=== PATIENT | female | born 1955 | race Hispanic/Latino ===

== ENCOUNTER 2016-08-24 08:11 | Outpatient (CLI) | payer OTHER ==
--- NOTE | 2016-08-24 09:46 | Mammography Report ---
BILATERAL DIGITAL SCREENING MAMMOGRAM with CAD: 08/24/16 08:11:00 CLINICAL: Routine screening. COMPARISON:08/24/15 FINDINGS: The breasts are almost entirely fatty. No mass, architectural distortion or suspicious calcifications. IMPRESSION: No mammographic evidence of malignancy. BI-RADS CATEGORY: 1 - - Negative RECOMMENDATION: Routine mammographic screening in one year. COMMENT: Patient follow-up letters are generated by our [employer] application.
== END 2016-08-24 08:12 | disposition home or self-care (01) ==
LOC: SPVWC 08:11
PROVIDERS: ATTEND Nurse Practitioner
DX: Z12.31 Encounter for screening mammogram for malignant neoplasm of breast (principal)
CPT/HCPCS: 77067; G0202

== ENCOUNTER 2018-02-25 10:14 | Outpatient (CLI) | payer OTHER ==
[2018-02-25] MEDS ORDERED: XYLOCAINE TOPICAL 4% TP ONE (10:51)
[2018-02-25] MEDS ORDERED: AD OINTMENT TP PRN (10:51)
== END 2018-02-25 10:15 | disposition home or self-care (01) ==
LOC: WOUND 10:14
PROVIDERS: ATTEND Surgery
DX: I70.248 Atherosclerosis of native arteries of left leg with ulceration of other part of lower leg (principal); L97.822 Non-pressure chronic ulcer of other part of left lower leg with fat layer exposed; I25.10 Atherosclerotic heart disease of native coronary artery without angina pectoris; E78.00 Pure hypercholesterolemia, unspecified; Z95.5 Presence of coronary angioplasty implant and graft; Z87.891 Personal history of nicotine dependence
CPT/HCPCS: 11042; 11045; G0463; 99215; A6250

== ENCOUNTER 2018-03-11 08:51 | Outpatient (CLI) | payer OTHER ==
[2018-03-11] MEDS ORDERED: XYLOCAINE TOPICAL 4% TP NR (09:13)
[2018-03-11] MEDS ORDERED: AD OINTMENT TP PRN (09:13)
== END 2018-03-11 08:52 | disposition home or self-care (01) ==
LOC: WOUND 08:51
PROVIDERS: ATTEND Surgery
DX: I70.248 Atherosclerosis of native arteries of left leg with ulceration of other part of lower leg (principal); L97.822 Non-pressure chronic ulcer of other part of left lower leg with fat layer exposed; I25.10 Atherosclerotic heart disease of native coronary artery without angina pectoris; E78.00 Pure hypercholesterolemia, unspecified; Z95.5 Presence of coronary angioplasty implant and graft; Z87.891 Personal history of nicotine dependence
CPT/HCPCS: A6250

== ENCOUNTER 2018-03-18 08:47 | Outpatient (CLI) | payer OTHER ==
[2018-03-18] MEDS ORDERED: XYLOCAINE TOPICAL 4% TP ONE (09:04)
== END 2018-03-18 08:48 | disposition home or self-care (01) ==
LOC: WOUND 08:47
PROVIDERS: ATTEND Surgery
DX: I70.248 Atherosclerosis of native arteries of left leg with ulceration of other part of lower leg (principal); L97.822 Non-pressure chronic ulcer of other part of left lower leg with fat layer exposed; I25.10 Atherosclerotic heart disease of native coronary artery without angina pectoris; E78.00 Pure hypercholesterolemia, unspecified; Z87.891 Personal history of nicotine dependence; Z95.5 Presence of coronary angioplasty implant and graft
CPT/HCPCS: 97605

== ENCOUNTER 2018-04-01 08:58 | Outpatient (CLI) | payer OTHER | END 2018-04-01 08:59 | disposition home or self-care (01) | LOC: WOUND 08:58 | PROVIDERS: ATTEND Surgery | DX: L97.821 Non-pressure chronic ulcer of other part of left lower leg limited to breakdown of skin (principal); E78.00 Pure hypercholesterolemia, unspecified; I25.10 Atherosclerotic heart disease of native coronary artery without angina pectoris; Z87.891 Personal history of nicotine dependence; Z95.818 Presence of other cardiac implants and grafts | CPT/HCPCS: 87075; 87116; G0463; 87186; 99215 ==

== ENCOUNTER 2018-04-08 08:54 | Outpatient (CLI) | payer OTHER | END 2018-04-08 08:55 | disposition home or self-care (01) | LOC: WOUND 08:54 ==

== ENCOUNTER 2018-04-15 08:57 | Outpatient (CLI) | payer OTHER ==
[2018-04-15] MEDS ORDERED: XYLOCAINE TOPICAL 4% TP ONE (09:07)
[2018-04-15] MEDS ORDERED: SILVER NITRATE TP ONE (09:08)
== END 2018-04-15 08:58 | disposition home or self-care (01) ==
LOC: WOUND 08:57
PROVIDERS: ATTEND Surgery
DX: L97.822 Non-pressure chronic ulcer of other part of left lower leg with fat layer exposed (principal); I25.10 Atherosclerotic heart disease of native coronary artery without angina pectoris; E78.00 Pure hypercholesterolemia, unspecified; Z87.891 Personal history of nicotine dependence

== ENCOUNTER 2018-04-18 09:12 | Inpatient (IN) | payer OTHER ==
[2018-04-18 10:33] LABS: Basophils # (Auto) 0.1 K/mm3 (0.0-0.1); Basophils % (Auto) 0.5 % (0.0-1.8); Eosinophils # (Auto) 0.1 K/mm3 (0.0-0.4); Eosinophils % (Auto) 1.3 % (0.0-4.3); Hemoglobin 12.1 gm/dl (10.1-14.3); Lymphocytes # (Auto) 0.5 K/mm3 (1.2-5.4); Lymphocytes % (Auto) 4.8 % (13.4-35.0); Mean Corpuscular HGB Conc 33 % (30-34); Mean Corpuscular Volume 79 fl (79-97); Monocytes # (Auto) 0.8 K/mm3 (0.0-0.8); Monocytes % (Auto) 8.5 % (0.0-7.3); Platelet Count 356 K/mm3 (140-440); Red Cell Distribution Width 17.6 % (13.2-15.2)
[2018-04-18 10:57] LABS: Albumin 3.8 g/dL (3.9-5); Calcium 9.1 mg/dL (8.4-10.2)
--- NOTE | 2018-04-18 11:33 | XRay Report ---
CHEST TWO VIEWS: 04/18/18 10:22 CLINICAL: Shortness of breath. No comparison. FINDINGS: Somewhat vague opacities in the left upper lobe with volume loss and a prominent left hilum with adjacent surgical clips. The left lower lobe is clear. The right lung is normally expanded and clear. The heart is normal size but is shifted to the left. Mild degenerative changes in the spine. No suspicious bone lesions. IMPRESSION: Probable chronic postsurgical changes of a left upper lobe after partial lobectomy.No acute pneumonia or CHF.
[2018-04-18] MEDS ORDERED: CARDIZEM IV ONE ×2 (16:50→16:57)
[2018-04-18] MEDS ORDERED: CARDIZEM ONE (16:53)
[2018-04-18] MEDS ORDERED: NACL 0.9% 500 ML 500 ML IV ONE (16:54)
[2018-04-18] MEDS ORDERED: NACL 0.9% 1000 ML 1,000 ML ONE ×2 (16:57→21:10)
[2018-04-18] MEDS ORDERED: CARDIZEM/D5W 100MG/100ML 100 MG/100 ML BAG IV SCH (17:00)
[2018-04-18] MEDS ORDERED: LANOXIN IV ONE (17:10)
[2018-04-18] MEDS ORDERED: CORDARONE 150 MG in D5W 97 ML IV ONE (17:30)
[2018-04-18 17:57] LABS: Free T4 (Free Thyroxine) 0.99 ng/dL (0.76-1.46)
[2018-04-18] MEDS ORDERED: CORDARONE 900 MG in D5W 482 ML IV SCH (18:00)
[2018-04-18 18:01] LABS: INR 1.02 (0.87-1.13)
[2018-04-18 18:02] LABS: Partial Thromboplastin Time 34.4 Sec. (24.2-36.6)
[2018-04-18] MEDS ORDERED: VANCOMYCIN 2,000 MG in NACL 0.9% 500 ML 500 ML IV ONE (18:45)
--- NOTE | 2018-04-18 19:24 | Cat Scan Report ---
FINAL REPORT PROCEDURE: CT angiogram chest with contrast. TECHNIQUE: Computerized tomographic angiography of the chest was performed after the IV injection of iodinated nonionic contrast including image processing. The image data was postprocessed using 2-dim ensional multiplanar reformatted (MPR) and 3-dimensional (MIP and/or volume rendered) techniques. HISTORY: Chest pain, shortness of breath, tachycardia, elevated D-dimer. COMPARISON: No prior studies are available for comparison. FINDINGS: The trachea and central bronchi appear normal. The right lung is clear and well expanded. There are n umerous small dilated bronchi in the anterior portion of the left upper lobe. These bronchi have dens e surrounding opacity. The findings are consistent with bronchiectasis with surrounding fibrosis. The re are no definite mass lesions. The remainder of the left lung is clear. There are no pleural effusi ons. The thoracic aorta has a normal caliber without evidence of dissection. The pulmonary arteries e nhance normally. There are no signs of pulmonary embolism. There is no mediastinal adenopathy. The he art size is normal. The adrenal glands are not enlarged. The thoracic skeleton appears intact. IMPRESSION: No evidence of pulmonary embolism. Probable chronic fibrosis and bronchiectasis in the anterior porti on of the left upper lobe.
[2018-04-18] MEDS ORDERED: NACL 0.9% 1000 ML 1,000 ML IV ONE ×2 (19:37→19:44)
[2018-04-18] MEDS ORDERED: LOPRESSOR IV ONE (19:45)
--- NOTE | 2018-04-18 19:53 | Emergency Department Report ---
ED Shortness of Breath HPI - General Chief Complaint: Dyspnea/Respdistress Stated Complaint: KIAN Time Seen by Provider: 04/18/18 10:12 Source: patient, old records reviewed Mode of arrival: Wheelchair Limitations: No Limitations - History of Present Illness Initial Comments: 63-year-old female with a past medical history of CAD with stent, obesity, hype rtension, and previous appendectomy presents to Hospital with complaints of shortness of breath and mid chest pain 2 days. Chest pain worsened last night described as pleuritic and worse with deep inspiration. Patient splinting secondary to pain. Patient was prescribed Bactrim and has been taking 1 tablet per week. She noticed that the medication should have been taken twice a day and has increased this dose for the past 2 days. Patient states she's been having some nausea with dry heaves. She states that she is no longer taking aspirin and Plavix due to her previous hematoma in her left leg. Dr. Mccarthy performed surgery on March 01 for her left leg hematoma that resulted from a fall. Patient states she had a negative stress test this past fall and denies a history of CHF. Dam Tender: Dr. Wick PMD: A nurse practitioner in Dr. church's formal office. Patient receives home wound care and continues to see Dr. Mccarthy as outpatient. Dr. Mccarthy prescribed the Bactrim - Related Data Home Medications Medication Instructions Recorded Confirmed Last Taken Alendronate Sodium [Fosamax] 70 mg PO QWEEK 02/27/18 03/01/18 02/28/18 09:00 Atorvastatin [Lipitor] 80 mg PO QHS 02/27/18 03/01/18 02/28/18 21:00 Citalopram Hydrobromide 20 mg PO DAILY 02/27/18 03/01/18 02/28/18 09:00 [Citalopram HBr] Clopidogrel Bisulfate [Clopidogrel] 75 mg PO DAILY 02/27/18 03/01/18 02/28/18 09:00 Cyanocobalamin [Vitamin B-12] 1,000 mcg IM QMONTH 02/27/18 03/01/18 02/08/18 Lisinopril [Zestril TAB] 40 mg PO DAILY 02/27/18 03/01/18 02/28/18 09:00 Metoprolol [Lopressor TAB] 50 mg PO DAILY 02/27/18 03/01/18 02/28/18 09:00 buPROPion HCl [Bupropion HCl ER] 200 mg PO BID 02/27/18 03/01/18 02/28/18 21:00 Previous Rx's Medication Instructions Recorded Last Taken Type oxyCODONE /ACETAMINOPHEN [Percocet 2 tab PO Q6H PRN #30 tablet 03/01/18 Unknown Rx 5/325 mg] Allergies Allergy/AdvReac Type Severity Reaction Status Date / Time No Known Allergies Allergy Verified 04/18/18 09:14 ED Review of Systems ROS: Stated complaint: KIAN Other details as noted in HPI Comment: All other systems reviewed and negative ED Past Medical Hx - Past Medical History Previous Medical History?: Yes Hx Hypertension: Yes (x 10 yrs) - Surgical History Past Surgical History?: Yes Hx Coronary Stent: Yes (x1 2007) Hx Appendectomy: Yes - Social History Smoking Status: Never Smoker Substance Use Type: None - Medications Home Medications: Home Medications Medication Instructions Recorded Confirmed Last Taken Type Alendronate Sodium [Fosamax] 70 mg PO QWEEK 02/27/18 03/01/18 02/28/18 09:00 History Atorvastatin [Lipitor] 80 mg PO QHS 02/27/18 03/01/18 02/28/18 21:00 History Citalopram Hydrobromide 20 mg PO DAILY 02/27/18 03/01/18 02/28/18 09:00 History [Citalopram HBr] Clopidogrel Bisulfate [Clopidogrel] 75 mg PO DAILY 02/27/18 03/01/18 02/28/18 09:00 History Cyanocobalamin [Vitamin B-12] 1,000 mcg IM QMONTH 02/27/18 03/01/18 02/08/18 History Lisinopril [Zestril TAB] 40 mg PO DAILY 02/27/18 03/01/18 02/28/18 09:00 History Metoprolol [Lopressor TAB] 50 mg PO DAILY 02/27/18 03/01/18 02/28/18 09:00 History buPROPion HCl [Bupropion HCl ER] 200 mg PO BID 02/27/18 03/01/18 02/28/18 21:00 History oxyCODONE /ACETAMINOPHEN [Percocet 2 tab PO Q6H PRN #30 tablet 03/01/18 Unknown Rx 5/325 mg] ED Physical Exam - General Limitations: No Limitations - Other Other exam information: General: No limitations, patient is alert in no acute distress Head exam: Atraumatic, normocephalic Eyes exam: Normal appearance ENT: Moist mucous membrane Neck exam: Normal inspection, full range of motion, no meningismus nontender Respiratory exam: Clear to auscultation bilateral, no wheezes, rales, crackles, tachypnea. Chest wall nontender Cardiovascular: Tachycardic regular rhythm Abdomen: Soft, nondistended, and nontender, with normal bowel sounds, no rebound, or guarding Extremity: Full range of motion, left lower leg with anterior wall with packing. No significant purulent drainage or warmth. Mild erythema. Mildly tender. Back: Normal Inspection, full range of motion, no tenderness Neurologic: Alert, oriented x3, cranial nerves intact, no motor or sensory deficit Psychiatric: normal affect, normal mood Skin: Warm, dry, intact ED Course Vital Signs 04/18/18 04/18/18 04/18/18 09:56 15:05 15:40 Temperature 98.8 F 100.5 F H 98.8 F Pulse Rate 51 L 155 H 144 H Respiratory 22 22 Rate Blood Pressure 103/76 113/62 Blood Pressure 102/61 [Left] O2 Sat by Pulse 97 99 98 Oximetry 04/18/18 04/18/18 04/18/18 16:13 16:14 16:16 Temperature Pulse Rate 150 H 152 H 153 H Respiratory 22 26 H 31 H Rate Blood Pressure 104/46 Blood Pressure [Left] O2 Sat by Pulse Oximetry 04/18/18 04/18/18 04/18/18 16:18 16:20 16:22 Temperature Pulse Rate 152 H 152 H 152 H Respiratory 26 H 33 H 28 H Rate Blood Pressure 104/46 104/46 104/46 Blood Pressure [Left] O2 Sat by Pulse Oximetry 04/18/18 04/18/18 04/18/18 16:24 16:26 16:28 Temperature Pulse Rate 153 H 153 H 152 H Respiratory 30 H 27 H 32 H Rate Blood Pressure 104/46 104/46 104/46 Blood Pressure [Left] O2 Sat by Pulse Oximetry 04/18/18 04/18/18 04/18/18 16:30 16:31 16:56 Temperature Pulse Rate 147 H 152 H 135 H Respiratory 31 H 31 H 30 H Rate Blood Pressure 104/46 97/47 118/97 Blood Pressure [Left] O2 Sat by Pulse Oximetry 04/18/18 04/18/18 04/18/18 16:58 17:00 17:01 Temperature Pulse Rate 153 H 152 H 152 H Respiratory 35 H 32 H 35 H Rate Blood Pressure 104/46 91/47 84/39 Blood Pressure [Left] O2 Sat by Pulse Oximetry 04/18/18 04/18/18 04/18/18 17:02 17:04 17:06 Temperature Pulse Rate 150 H 152 H 148 H Respiratory 33 H 32 H 33 H Rate Blood Pressure 84/39 84/39 84/39 Blood Pressure [Left] O2 Sat by Pulse Oximetry 04/18/18 04/18/18 04/18/18 17:08 17:10 17:12 Temperature Pulse Rate 150 H 148 H 134 H Respiratory 36 H 30 H 34 H Rate Blood Pressure 75/38 75/38 75/38 Blood Pressure [Left] O2 Sat by Pulse Oximetry 04/18/18 04/18/18 04/18/18 17:14 17:16 17:18 Temperature Pulse Rate 142 H 126 H 149 H Respiratory 26 H 32 H 23 Rate Blood Pressure 75/38 135/86 135/86 Blood Pressure [Left] O2 Sat by Pulse Oximetry 04/18/18 04/18/18 04/18/18 17:20 17:22 17:24 Temperature Pulse Rate 130 H 126 H 149 H Respiratory 33 H 27 H 27 H Rate Blood Pressure 135/86 135/86 135/86 Blood Pressure [Left] O2 Sat by Pulse Oximetry 04/18/18 04/18/18 04/18/18 17:26 17:28 17:30 Temperature Pulse Rate 136 H 140 H 134 H Respiratory 21 33 H 33 H Rate Blood Pressure 135/86 135/86 135/86 Blood Pressure [Left] O2 Sat by Pulse Oximetry 04/18/18 04/18/18 04/18/18 17:31 17:32 17:34 Temperature Pulse Rate 141 H 138 H 139 H Respiratory 28 H 34 H 28 H Rate Blood Pressure 104/55 104/55 104/55 Blood Pressure [Left] O2 Sat by Pulse Oximetry 04/18/18 04/18/18 04/18/18 17:36 17:38 17:40 Temperature Pulse Rate 145 H 147 H 148 H Respiratory 25 H 36 H 36 H Rate Blood Pressure 104/55 104/55 104/55 Blood Pressure [Left] O2 Sat by Pulse 98 Oximetry 04/18/18 04/18/18 04/18/18 17:42 17:44 17:46 Temperature Pulse Rate 148 H 143 H 149 H Respiratory 35 H 34 H 34 H Rate Blood Pressure 104/55 104/55 85/49 Blood Pressure [Left] O2 Sat by Pulse Oximetry 04/18/18 04/18/18 04/18/18 17:48 17:50 17:52 Temperature Pulse Rate 143 H 143 H 147 H Respiratory 33 H 33 H 29 H Rate Blood Pressure 85/49 85/49 85/49 Blood Pressure [Left] O2 Sat by Pulse Oximetry 04/18/18 04/18/18 04/18/18 17:54 17:56 17:58 Temperature Pulse Rate 147 H 137 H 141 H Respiratory 30 H 34 H 35 H Rate Blood Pressure 85/49 85/49 85/49 Blood Pressure [Left] O2 Sat by Pulse Oximetry 04/18/18 04/18/18 04/18/18 18:00 18:02 18:04 Temperature Pulse Rate 133 H 141 H 141 H Respiratory 37 H 34 H 36 H Rate Blood Pressure 85/49 85/49 85/49 Blood Pressure [Left] O2 Sat by Pulse Oximetry 04/18/18 04/18/18 04/18/18 18:06 18:08 18:10 Temperature Pulse Rate 142 H 142 H 143 H Respiratory 26 H 37 H 27 H Rate Blood Pressure 85/49 85/49 85/49 Blood Pressure [Left] O2 Sat by Pulse Oximetry 04/18/18 04/18/18 04/18/18 18:12 18:14 18:16 Temperature Pulse Rate 142 H 134 H 138 H Respiratory 33 H 25 H 27 H Rate Blood Pressure 85/49 85/49 85/49 Blood Pressure [Left] O2 Sat by Pulse Oximetry 04/18/18 04/18/18 04/18/18 18:18 18:20 18:22 Temperature Pulse Rate 144 H 142 H 140 H Respiratory 27 H 33 H 28 H Rate Blood Pressure 85/49 85/49 85/49 Blood Pressure [Left] O2 Sat by Pulse Oximetry 04/18/18 04/18/18 04/18/18 18:24 18:26 18:28 Temperature Pulse Rate 137 H 134 H 144 H Respiratory 31 H 29 H 31 H Rate Blood Pressure 85/49 85/49 85/49 Blood Pressure [Left] O2 Sat by Pulse Oximetry 04/18/18 18:30 Temperature Pulse Rate 141 H Respiratory 30 H Rate Blood Pressure 85/49 Blood Pressure [Left] O2 Sat by Pulse Oximetry - Consultations Consultation #1: 04/18/18 17:[address] Renee Barnett workers' compensation claims supervisor parts specialist for Dr. Wick. Informed that Cardizem bolus did not help with tachycardia and blood pressure drop from 100 systolic to the 70s after initial bolus. Recommends digoxin 0.5 mg IV load, amiodarone 150 IV load followed by amiodarone drip. 04/18/18 19:49 Received follow-up call from Dr. Renee Barnett. Informed that patient remains tachycardic in the 130s to 150s. Will blood pressure cuff chain systolic pressure is 100. Recommends to try metoprolol 5 mg IV. Recommends additional IV fluids. Patient has received 1 L normal saline eschar and no signs of CHF on CT scan after IVF. Additional 2 L ordered Consultation #2: 04/18/18 20:[address] Mccarthy to be done during admission 04/18/18 20:21 Critical care consult ordered - Central Line Placement Right IJ Consent Obtained: written consent Time Out Performed: Yes Patient Placed on Monitor/Pulse Ox: Yes Prep: mask, gown, gloves Central Line Prep: Chlorhexidine scrub, sterile drapes applied Local Anesthesia Used: Lidocaine 1% Amount of Anesthesia Used (mls): 5 Ultrasound Used for Placement: Yes Central Line Lumen Inserted: triple Bloods Obtained for Lab: Yes Central Line Position: good blood return, sutured in place with nyl Dressing Applied: Tegaderm Post Procedure X-Ray: tip of catheter in good p Patient Tolerated Procedure: well Complications: none ED Medical Decision Making - Lab Data Result diagrams: 04/18/18 10:08 04/18/18 10:08 Lab Results 04/18/18 04/18/18 04/18/18 Range/Units 10:08 10:08 10:08 WBC 9.9 (4.5-11.0) K/mm3 RBC 4.70 (3.65-5.03) M/mm3 Hgb 12.1 (10.1-14.3) gm/dl Hct 37.0 (30.3-42.9) % MCV 79 (79-97) fl MCH 26 L (28-32) pg MCHC 33 (30-34) % RDW 17.6 H (13.2-15.2) % Plt Count 356 (140-440) K/mm3 Lymph % (Auto) 4.8 L (13.4-35.0) % Osborne % (Auto) 8.5 H (0.0-7.3) % Eos % (Auto) 1.3 (0.0-4.3) % Baso % (Auto) 0.5 (0.0-1.8) % Lymph # 0.5 L (1.2-5.4) K/mm3 Osborne # 0.8 (0.0-0.8) K/mm3 Eos # 0.1 (0.0-0.4) K/mm3 Baso # 0.1 (0.0-0.1) K/mm3 Seg Neutrophils % 84.9 H (40.0-70.0) % Seg Neutrophils # 8.4 H (1.8-7.7) K/mm3 PT (12.2-14.9) Sec. INR (0.87-1.13) APTT (24.2-36.6) Sec. D-Dimer (0-234) ng/mlDDU VBG pH (7.320-7.420) Sodium 134 L (137-145) mmol/L Potassium 4.4 (3.6-5.0) mmol/L Chloride 99.9 (98-107) mmol/L Carbon Dioxide 20 L (22-30) mmol/L Anion Gap 19 mmol/L BUN 21 H (7-17) mg/dL Creatinine 1.0 (0.7-1.2) mg/dL Estimated GFR 56 ml/min BUN/Creatinine Ratio 21 % Glucose 138 H (65-100) mg/dL Lactic Acid (0.7-2.0) mmol/L Calcium 9.1 (8.4-10.2) mg/dL Magnesium (1.7-2.3) mg/dL Total Bilirubin 0.30 (0.1-1.2) mg/dL AST 18 (5-40) units/L ALT 15 (7-56) units/L Alkaline Phosphatase 93 (35-129) units/L Troponin T < 0.010 (0.00-0.029) ng/mL Total Protein 7.0 (6.3-8.2) g/dL Albumin 3.8 L (3.9-5) g/dL Albumin/Globulin Ratio 1.2 % TSH (0.270-4.200) mlU/mL Free T4 (0.76-1.46) ng/dL 04/18/18 04/18/18 04/18/18 Range/Units 15:52 16:57 16:57 WBC (4.5-11.0) K/mm3 RBC (3.65-5.03) M/mm3 Hgb (10.1-14.3) gm/dl Hct (30.3-42.9) % MCV (79-97) fl MCH (28-32) pg MCHC (30-34) % RDW (13.2-15.2) % Plt Count (140-440) K/mm3 Lymph % (Auto) (13.4-35.0) % Osborne % (Auto) (0.0-7.3) % Eos % (Auto) (0.0-4.3) % Baso % (Auto) (0.0-1.8) % Lymph # (1.2-5.4) K/mm3 Osborne # (0.0-0.8) K/mm3 Eos # (0.0-0.4) K/mm3 Baso # (0.0-0.1) K/mm3 Seg Neutrophils % (40.0-70.0) % Seg Neutrophils # (1.8-7.7) K/mm3 PT 14.0 (12.2-14.9) Sec. INR 1.02 (0.87-1.13) APTT 34.4 (24.2-36.6) Sec. D-Dimer 519.87 H (0-234) ng/mlDDU VBG pH (7.320-7.420) Sodium (137-145) mmol/L Potassium (3.6-5.0) mmol/L Chloride (98-107) mmol/L Carbon Dioxide (22-30) mmol/L Anion Gap mmol/L BUN (7-17) mg/dL Creatinine (0.7-1.2) mg/dL Estimated GFR ml/min BUN/Creatinine Ratio % Glucose (65-100) mg/dL Lactic Acid (0.7-2.0) mmol/L Calcium (8.4-10.2) mg/dL Magnesium (1.7-2.3) mg/dL Total Bilirubin (0.1-1.2) mg/dL AST (5-40) units/L ALT (7-56) units/L Alkaline Phosphatase (35-129) units/L Troponin T < 0.010 (0.00-0.029) ng/mL Total Protein (6.3-8.2) g/dL Albumin (3.9-5) g/dL Albumin/Globulin Ratio % TSH 0.892 (0.270-4.200) mlU/mL Free T4 0.99 (0.76-1.46) ng/dL 04/18/18 04/18/18 04/18/18 Range/Units 17:20 17:35 17:35 WBC (4.5-11.0) K/mm3 RBC (3.65-5.03) M/mm3 Hgb (10.1-14.3) gm/dl Hct (30.3-42.9) % MCV (79-97) fl MCH (28-32) pg MCHC (30-34) % RDW (13.2-15.2) % Plt Count (140-440) K/mm3 Lymph % (Auto) (13.4-35.0) % Osborne % (Auto) (0.0-7.3) % Eos % (Auto) (0.0-4.3) % Baso % (Auto) (0.0-1.8) % Lymph # (1.2-5.4) K/mm3 Osborne # (0.0-0.8) K/mm3 Eos # (0.0-0.4) K/mm3 Baso # (0.0-0.1) K/mm3 Seg Neutrophils % (40.0-70.0) % Seg Neutrophils # (1.8-7.7) K/mm3 PT (12.2-14.9) Sec. INR (0.87-1.13) APTT (24.2-36.6) Sec. D-Dimer (0-234) ng/mlDDU VBG pH 7.359 (7.320-7.420) Sodium (137-145) mmol/L Potassium (3.6-5.0) mmol/L Chloride (98-107) mmol/L Carbon Dioxide (22-30) mmol/L Anion Gap mmol/L BUN (7-17) mg/dL Creatinine (0.7-1.2) mg/dL Estimated GFR ml/min BUN/Creatinine Ratio % Glucose (65-100) mg/dL Lactic Acid 1.10 (0.7-2.0) mmol/L Calcium (8.4-10.2) mg/dL Magnesium 1.90 (1.7-2.3) mg/dL Total Bilirubin (0.1-1.2) mg/dL AST (5-40) units/L ALT (7-56) units/L Alkaline Phosphatase (35-129) units/L Troponin T (0.00-0.029) ng/mL Total Protein (6.3-8.2) g/dL Albumin (3.9-5) g/dL Albumin/Globulin Ratio % TSH (0.270-4.200) mlU/mL Free T4 (0.76-1.46) ng/dL - EKG Data -: EKG Interpreted by [place] EKG shows normal: axis (qrs =73), QRS complexes (qrsd 86), ST-T waves (no stemi) Rate: tachycardia (139) - EKG Data When compared to previous EKG there are: previous EKG unavailable 04/18/18 20:07 Repeat EKG at 16:46 shows A flutter with 2-1 block rate 151. QRS axis -57, QRS duration 146, no ST elevation [place] - Radiology Data Radiology results: report reviewed CHEST TWO VIEWS: 04/18/18 10:22 CLINICAL: Shortness of breath. No comparison. FINDINGS: Somewhat vague opacities in the left upper lobe with volume loss and a prominent left hilum with adjacent surgical clips. The left lower lobe is clear. The right lung is normally expanded and clear. The heart is normal size but is shifted to the left. Mild degenerative changes in the spine. No suspicious bone lesions. IMPRESSION: Probable chronic postsurgical changes of a left upper lobe after partial lobectomy.No acute pneumonia or CHF. FINAL REPORT PROCEDURE: CT angiogram chest with contrast. TECHNIQUE: Computerized tomographic angiography of the chest was performed after the IV injection of iodinated nonionic contrast including image processing. The image data was postprocessed using 2- dimensional multiplanar reformatted (MPR) and 3-dimensional (MIP and/or volume rendered) techniques. HISTORY: Chest pain, shortness of breath, tachycardia, elevated D-dimer. COMPARISON: No prior studies are available for comparison. FINDINGS: The trachea and central bronchi appear normal. The right lung is clear and well expanded. There are numerous small dilated bronchi in the anterior portion of the left upper lobe. These bronchi have dense surrounding opacity. The findings are consistent with bronchiectasis with surrounding fibrosis. There are no definite mass lesions. The remainder of the left lung is clear. There are no pleural effusions. The thoracic aorta has a normal caliber without evidence of dissection. The pulmonary arteries enhance normally. There are no signs of pulmonary embolism. There is no mediastinal adenopathy. The heart size is normal. The adrenal glands are not enlarged. The thoracic skeleton appears intact. IMPRESSION: No evidence of pulmonary embolism. Probable chronic fibrosis and bronchiectasis in the anterior portion of the left upper lobe. FINAL REPORT EXAM: XR CHEST 1V AP HISTORY: s/p central line placement TECHNIQUE: Single AP chest PRIORS: None. FINDINGS: There is a right IJ catheter tip the SVC. There is some patchy increased opacity within the left upper lobe which may be acute or chronic finding. No evidence for pneumothorax. Pulmonary vasculature appears within normal limits. IMPRESSION: Right IJ catheter in satisfactory position Patchy increased opacity in the left upper lobe which may be acute or chronic finding. Continued followup suggested. - Medical Decision Making Patient presents to the hospital with A. fib with RVR that is refractory to medication in the ED. It is unclear as whether not this is caused by sepsis or primary arrhythmia. Patient is on antibiotics/Bactrim for her leg but does not have any leukocytosis pregnancies although there is a shift) or elevated lactic acid. Patient has pleuritic chest pain and is splinting secondary to pain. D- dimer was elevated. CT angiogram chest was negative for pulmonary embolism. Central line placed due to persistent tachycardia and borderline hypotension. Case discussed with parts specialist see consult. Hospitalist informed of admission Dr Sharma. ICU admission orders will be placed. Patient was empirically given vancomycin for possible leg infection. Zosyn also ordered given increasing left upper lobe opacity with IV hydration. - Differential Diagnosis PE, A. fib, a flutter, sepsis Critical Care Time: Yes Critical care time in (mins) excluding proc time.: 65 Critical care attestation.: If time is entered above; I have spent that time in minutes in the direct care of this critically ill patient, excluding procedure time. ED Disposition Clinical Impression: Atrial flutter with rapid ventricular response, Pleuritic chest pain, Pulmonary infiltrate, Leg wound, left Disposition: [id number] OP ADMIT IP TO THIS HOSP Is pt being admited?: Yes Condition: Stable Instructions: Chest Pain (ED) Time of Disposition: 20:13 (Dr Sharma/hospitalist)
--- NOTE | 2018-04-18 20:07 | XRay Report ---
FINAL REPORT EXAM: XR CHEST 1V AP HISTORY: s/p central line placement TECHNIQUE: Single AP chest PRIORS: None. FINDINGS: There is a right IJ catheter tip the SVC. There is some patchy increased opacity within the left uppe r lobe which may be acute or chronic finding. No evidence for pneumothorax. Pulmonary vasculature jaden ears within normal limits. IMPRESSION: Right IJ catheter in satisfactory position Patchy increased opacity in the left upper lobe which may be acute or chronic finding. Continued foll owup suggested.
[2018-04-18] MEDS ORDERED: ZOSYN/NS 4.5GM/100ML 4.5 GM/100 ML VIAL IV ONE ×2 (20:10→21:10)
--- NOTE | 2018-04-18 20:22 | History and Physical Report ---
History of Present Illness Chief complaint: I cant breathe History of present illness: 63 YO Female with MO,Obesity Hypoventilation on CPAP, CAD S/P Stent Placement, HTN presents to ED for evaluation. Pt states that she has experienced shortness of breath, chest palpitations, and chest discomfort over the past 2 days with worsening symptoms over the same time frame. Pt seen and evaluated by her PCP and was initially treated with oral antibiotic therapy without relief of symptoms that were suspected secondary to a respiratory tract infection. Pt subsequently presents to ED for evaluation. Pt seen and evaluated in ED and found to have Atrial Flutter with RVR, Acute Respiratory Failure, as well as Left Leg Cellulitis. Pt treated with medical cardioversion with cardizem without improvement. Cardiology consulted in ED. Pt then placed on amidarone drip and heparin drip as per cardiology request. Pt declined synchronized cardioversion. Pt admitted to ICU. Pt denies fever, chills, NVD, Trauma, BRBPR, Hemoptysis, or recent ill contacts. Past History Past Medical History: CAD, other (Obesity Hypoventilation,) Past Surgical History: appendectomy, Other (stent placement) Social history: , lives with family. denies: smoking, alcohol abuse, prescription drug abuse Family history: hypertension Medications and Allergies Allergies Allergy/AdvReac Type Severity Reaction Status Date / Time No Known Allergies Allergy Verified 04/18/18 09:14 Home Medications Medication Instructions Recorded Confirmed Last Taken Type Alendronate Sodium [Fosamax] 70 mg PO QWEEK 02/27/18 03/01/18 02/28/18 09:00 History Atorvastatin [Lipitor] 80 mg PO QHS 02/27/18 03/01/18 02/28/18 21:00 History Citalopram Hydrobromide 20 mg PO DAILY 02/27/18 03/01/18 02/28/18 09:00 History [Citalopram HBr] Clopidogrel Bisulfate [Clopidogrel] 75 mg PO DAILY 02/27/18 03/01/18 02/28/18 09:00 History Cyanocobalamin [Vitamin B-12] 1,000 mcg IM QMONTH 02/27/18 03/01/1818 History Lisinopril [Zestril TAB] 40 mg PO DAILY 02/27/18 03/01/18 02/28/18 09:00 History Metoprolol [Lopressor TAB] 50 mg PO DAILY 02/27/18 03/01/18 02/28/18 09:00 History buPROPion HCl [Bupropion HCl ER] 200 mg PO BID 02/27/18 03/01/18 02/28/18 21:00 History oxyCODONE /ACETAMINOPHEN [Percocet 2 tab PO Q6H PRN #30 tablet 03/01/18 Unknown Rx 5/325 mg] Active Meds: Active Medications Amiodarone HCl 900 mg/ (Dextrose) 500 mls @ 33.33 mls/hr IV DIRECT JOSEE; Protocol Last Admin: 04/18/18 18:00 Dose: 1 mg/min, 33.33 mls/hr Documented by: Vancomycin HCl 2,000 mg/ (Sodium Chloride) 540 mls @ 333 mls/hr IV ONCE ONE; Protocol Stop: 04/18/18 20:22 Sodium Chloride (Nacl 0.9% 1000 Ml) 1,000 mls @ 999 mls/hr IV BOLUS ONE Stop: 04/18/18 20:37 Last Admin: 04/18/18 20:11 Dose: 999 mls/hr Documented by: Sodium Chloride (Nacl 0.9% 1000 Ml) 1,000 mls @ 999 mls/hr IV BOLUS ONE Stop: 04/18/18 20:44 Piperacillin Sod/Tazobactam Sod (Zosyn/Ns 4.5gm/100ml) 4.5 gm in 100 mls @ 200 mls/hr IV ONCE ONE Stop: 04/18/18 20:39 Review of Systems Constitutional: no weight loss, no weight gain, no fever, no chills Ears, nose, mouth and throat: no ear pain, no ear discharge, no tinnitis, no decreased hearing, no nose pain Cardiovascular: chest pain, palpitations, shortness of breath Respiratory: no cough, no cough with sputum, no excessive sputum, no hemoptysis Gastrointestinal: no nausea, no vomiting, no diarrhea, no constipation Genitourinary Female: no pelvic pain, no flank pain, no menorrhagia, no dysuria, no urinary frequency, no urgency Rectal: no pain, no incontinence, no bleeding Musculoskeletal: no neck stiffness, no neck pain, no shooting arm pain, no arm numbness/tingling, no low back pain Integumentary: no rash, no pruritis, no redness, no sores, no wounds Neurological: no paralysis, no weakness, no parathesias, no numbness Psychiatric: no anxiety, no memory loss, no change in sleep habits, no sleep disturbances, no insomnia, no hypersomnia Endocrine: no cold intolerance, no heat intolerance, no polyphagia, no excessive thirst, no polydipsia Hematologic/Lymphatic: no easy bruising, no easy bleeding Allergic/Immunologic: no urticaria, no allergic rhinitis, no wheezing Exam - Constitutional Vitals: Temp Pulse Resp BP Pulse Ox 98.8 F 141 H 30 H 85/49 98 04/18/18 15:40 04/18/18 18:30 04/18/18 18:30 04/18/18 18:30 04/18/18 17:40 General appearance: Present: mild distress, obese - EENT Eyes: Present: PERRL ENT: hearing intact, clear oral mucosa - Neck Neck: Present: supple, normal ROM - Respiratory Respiratory effort: labored Respiratory: bilateral: diminished - Cardiovascular Heart Sounds: Present: S1 & S2. Absent: rub, click - Extremities Extremities: pulses symmetrical, No edema Peripheral Pulses: within normal limits - Abdominal General gastrointestinal: Present: soft, non-tender, non-distended, normal bowel sounds Female genitourinary: Present: normal - Integumentary Integumentary: Present: clear, warm, dry - Musculoskeletal Musculoskeletal: gait normal, strength equal bilaterally - Psychiatric Psychiatric: appropriate mood/affect, intact judgment & insight - Neurologic Neurologic: CNII-XII intact, moves all extremities Results - Labs CBC & Chem 7: 04/19/18 03:53 04/19/18 03:53 Labs: Abnormal lab results 04/18/18 04/18/18 04/18/18 Range/Units 10:08 10:08 16:57 MCH 26 L (28-32) pg RDW 17.6 H (13.2-15.2) % Lymph % (Auto) 4.8 L (13.4-35.0) % [place] % (Auto) 8.5 H (0.0-7.3) % Lymph # 0.5 L (1.2-5.4) K/mm3 Seg Neutrophils % 84.9 H (40.0-70.0) % Seg Neutrophils # 8.4 H (1.8-7.7) K/mm3 D-Dimer 519.87 H (0-234) ng/mlDDU Sodium 134 L (137-145) mmol/L Carbon Dioxide 20 L (22-30) mmol/L BUN 21 H (7-17) mg/dL Glucose 138 H (65-100) mg/dL Albumin 3.8 L (3.9-5) g/dL Assessment and Plan - Patient Problems (1) Atrial flutter with rapid ventricular response Current Visit: Yes Status: Acute Plan to address problem: Admit to ICU: Amiodarone drip, heparin drip as per cardiology request, Pt declined synchronized cardioversion, supportive care, cardiology consulted. The high probability of a clinically significant, sudden or life threatening deterioration of the [cardiac,renal, respiratory] system(s) required my full and direct attention, intervention and personal management. The aggregate critical care time was [65] minutes. This time is in addition to time spent performing reported procedures but includes the following: [x] Data Review and interpretation [x] Patient assessment and monitoring of vital signs [x] Documentation [x] Medication orders and management (2) Cellulitis Current Visit: Yes Status: Acute Qualifiers: Site of cellulitis of extremity: lower extremity Laterality: left Plan to address problem: Empiric antibiotic therapy x 1 dose, wound care, CBC, supportive care, Surgery team consulted in ED (3) Respiratory failure Current Visit: Yes Status: Acute Qualifiers: Chronicity: acute Respiratory failure complication: hypoxia Qualified Code(s): J96.01 - Acute respiratory failure with hypoxia Plan to address problem: Supplemental oxygen, nebulizer therapy, NIPPV as clinically indicated, chest x ray, pulse oximetry (4) Obesity hypoventilation syndrome Current Visit: Yes Status: Acute Plan to address problem: Supplemental oxygen, nebulizer therapy, NIPPV qhs, early ambulation, pulmonary toilet, balanced diet, increased physical activity at discharge (5) DVT prophylaxis Current Visit: Yes Status: Acute Plan to address problem: SCD to BLE while in bed
[2018-04-18] MEDS ORDERED: SODIUM CHLORIDE FLUSH SYRINGE 10 ML IV PRN (20:35)
[2018-04-18] MEDS ORDERED: HEPARIN 10,000 UNITS/10 ML IV ONE (20:44)
[2018-04-18] MEDS ORDERED: VITAMIN B-12 IM SCH (21:00)
--- NOTE | 2018-04-18 21:08 | Event Note ---
Date: 04/18/18 Atrial flutter with RVR. Patint seen in ER. Discussed with . Spoke with patient's at bedside. Full consult dictated. . 04/18/18 9:15 PM.
[2018-04-18] MEDS ORDERED: HEPARIN/ 0.45% NACL-25,000 UNIT/500 ML 25,000 UNIT/500 ML BAG ONE (21:11)
[2018-04-18] MEDS ORDERED: HEPARIN 10,000 UNITS/10 ML ONE (21:12)
[2018-04-18] MEDS: HEPARIN/ 0.45% NACL-25,000 UNIT/500 ML 25,000 UNIT/500 ML BAG IV SCH (21:22)
[2018-04-18 21:51] LABS: INR 1.13 (0.87-1.13); Partial Thromboplastin Time 29.2 Sec. (24.2-36.6)
[2018-04-18] MEDS ORDERED: NON-FORMULARY (Atorvastatin [Lipitor] 80 MG) PO SCH (22:00)
[2018-04-18 23:06] LABS: Bilirubin,Urine NEG (Negative); Blood,Urine NEG (Negative); Color,Urine Yellow (Yellow); Mucus,Urine FEW /HPF; Protein,Urine <15 mg/dL mg/dL (Negative); Urobilinogen,Urine < 2.0 mg/dL (<2.0); WBC,Urine < 1.0 /HPF (0.0-6.0)
[2018-04-18] MEDS: SODIUM CHLORIDE FLUSH SYRINGE 10 ML IV SCH (23:08)
[2018-04-18] MEDS ORDERED: PERCOCET 5/325 ONE (23:28)
[2018-04-18] MEDS: PERCOCET 5/325 PO PRN (23:30)
[2018-04-18] MEDS: WELLBUTRIN SR PO SCH (23:35)
[2018-04-18 23:47] LABS: Hematocrit 30.3 % (30.3-42.9); Hemoglobin 9.7 gm/dl (10.1-14.3)
[2018-04-19] MEDS ORDERED: NACL 0.9% 500 ML 500 ML IV ONE (00:14)
--- NOTE | 2018-04-19 00:30 | Consultation ---
CONSULT REQUESTED BY: Aamir Sharma MD REASON FOR CONSULTATION: Atrial flutter with rapid ventricular rate. HISTORY OF PRESENT ILLNESS: This 63-year-old white female followed in our office by Dr. Wick for coronary artery disease with stent deployment in 2010 of the LAD 90% by Dr. Brown, has been doing fairly well. She had PET scan done in 08/2017, which was negative for ischemia. She fell down in December and injured her left leg with some hematoma requiring evacuation. Since that time, she has not been feeling well. She has been told to take Bactrim. She did take Bactrim starting on last week for prevention of infection. This morning, she woke up with shortness of breath and palpitations. The patient also claims she has been having palpitations off and on since Sunday, but she did not call the office. MEDICATIONS: At home include Plavix 75 mg a day, vitamin B12 1000 microgram/d, lisinopril 40 mg a day, metoprolol succinate 50 mg a day, bupropion HCL 200 mg b.i.d. SOCIAL HISTORY: The patient is . The patient's is at the bedside. She does not smoke. REVIEW OF SYSTEMS: ENDOCRINE: Negative for diabetes mellitus. No history of sleep apnea. No history of thyroid disease. CARDIOPULMONARY: No history of heart failure in the past. No history of atrial fibrillation and flutter in the past. No history of pulmonary embolism. NEUROPSYCHIATRY: No history of TIA or stroke. GASTROINTESTINAL: No symptoms. MUSCULOSKELETAL: She has left lower leg edema and wound and packing in the anterior wall of lower extremity. PHYSICAL EXAMINATION: VITAL SIGNS: BMI is 52.9. blood pressure has been around 100/60. Pulse rate 140 per minute, respirations 30 per minute, temperature 100.3. GENERAL: The patient is in mild to moderate respiratory distress. NECK: She has got central line in the right external jugular vein. Cannot make out any JVP distention. HEART: PMI is not palpable. Heart sounds heard well. Rapid regular rhythm. Carotid massage did reveal the flutter waves and slow heart rate. LUNGS: Clear clinically. ABDOMEN: Obese EXTREMITIES: Left lower leg is swollen and there is wound pack in the anterior compartment of the tibial area. Right leg, no edema. Pulses felt well. LABORATORY DATA AND IMAGING STUDIES: White cell count 9900, hemoglobin 12.1 grams percent, platelet count 356. Neutrophils 84.9, shift to the left. D-dimer is 519.87, normal is 0-234. Sodium is 134, potassium 4.4. Magnesium is 1.9. Calcium is 9.1, albumin is 3.8. TSH is 0.892. Free T4 is 0.99. CT of the chest is negative for pulmonary embolism. Chest x-ray revealed left upper lobe opacity, acute versus chronic. EKG revealed atrial flutter with rapid ventricular rate. IMPRESSION: 1. Atrial flutter with rapid ventricular rate. Etiology is unknown at this time. 2. Possible infection or obesity, sleep apnea are in the differential diagnoses. 3. History of stent deployment in LAD in 2010. 4. Morbid obesity. DISCUSSION: The patient is fairly stable. The pulse pressure is good. She is not in shock clinically. I did talk to the patient and the patient's that cardioversion may help her; however, the duration of atrial flutter is not known.Spoke with ER doctor .To fluid bolus 2 litres of NS.Start on ABx sor possible sepsis.IV digoxin 0.5 mg and IV lopressor 5 mg now. We will start the patient on heparin and give her amiodarone, Lopressor and IV fluids with echocardiogram in the morning. JOB# [id number] GONZÁLEZ/KIMBERLEE WALTERS
[2018-04-19] MEDS ORDERED: NACL 0.9% 1000 ML 1,000 ML ONE (00:55)
[2018-04-19] MEDS ORDERED: NACL 0.9% 1000 ML 1,000 ML IV ONE (00:57)
--- NOTE | 2018-04-19 01:19 | Event Note ---
Patient continues to be hypotensive and a emergency room, add Levophed drip
[2018-04-19] MEDS: LEVOPHED DRIP 4 MG/NS 250 ML 4 MG/250 ML BAG IV ONE ×4 (01:43→12:40)
[2018-04-19 04:04] LABS: Basophils % (Auto) 0.3 % (0.0-1.8); Eosinophils # (Auto) 0.1 K/mm3 (0.0-0.4); Eosinophils % (Auto) 0.6 % (0.0-4.3); Hemoglobin 10.1 gm/dl (10.1-14.3); Lymphocytes # (Auto) 1.3 K/mm3 (1.2-5.4); Lymphocytes % (Auto) 12.1 % (13.4-35.0); Mean Corpuscular HGB Conc 33 % (30-34); Mean Corpuscular Volume 80 fl (79-97); Monocytes # (Auto) 1.4 K/mm3 (0.0-0.8); Monocytes % (Auto) 12.7 % (0.0-7.3); Platelet Count 351 K/mm3 (140-440); Red Cell Distribution Width 18.1 % (13.2-15.2)
[2018-04-19 04:25] LABS: BUN/Creatinine Ratio 18; Blood Urea Nitrogen 16 mg/dL (7-17); Calcium 7.3 mg/dL (8.4-10.2); Hemolysis Index 8
[2018-04-19] MEDS ORDERED: LEVOPHED DRIP 4 MG/NS 250 ML 4 MG/250 ML BAG IV ONE ×2 (07:25→17:34)
[2018-04-19] MEDS: PERCOCET 5/325 PO PRN ×3 (07:44→22:58)
[2018-04-19] MEDS ORDERED: PERCOCET 5/325 ONE ×2 (07:45→16:28)
[2018-04-19] MEDS ORDERED: PLAVIX PO SCH (10:00)
[2018-04-19] MEDS ORDERED: LOPRESSOR PO SCH (10:00)
[2018-04-19] MEDS ORDERED: ZESTRIL PO SCH (10:00)
--- NOTE | 2018-04-19 10:07 | Progress Note ---
Assessment and Plan Pt presented with new onset AFlutter RVR and hypotension which was likely precipitated by ? PNA. Pt converted to SR overnight. She remains on levophed gtt and amio gtt. Cont amio gtt. Wean levophed as tolerated and resume home cardiac regimen (Toprol XL, lisinopril) once BPs permit. Pt has h/o CAD with PCI of LAD in 2010. Lexiscan MPI stress test done 08/2017 was negative. Her home cardiac regimen includes ASA 81 and Plavix. She has been placed on heparin gtt in setting of AFlutter and will require conversion to NOAC prior to hospital discharge. D/c Plavix and cont ASA 81. Obtain echo. The patient has been seen in conjunction with Dr. Hope who agrees with the assessment and plan of care. - Patient Problems (1) Atrial flutter with rapid ventricular response Current Visit: Yes Status: Acute (2) Pulmonary infiltrate Current Visit: Yes Status: Acute (3) Hypotension Current Visit: Yes Status: Acute (4) CAD (coronary artery disease) Current Visit: Yes Status: Chronic (5) Stented coronary artery Current Visit: Yes Status: Chronic (6) Leg wound, left Current Visit: Yes Status: Acute (7) Morbid obesity Current Visit: Yes Status: Chronic (8) Sleep apnea Current Visit: Yes Status: Chronic Subjective Date of service: 04/19/18 Principal diagnosis: AFlutter Interval history: pt resting in bed, states she is feeling better today. in SR on telemetry. remains on levophed and amio gtt. Objective Last Vital Signs Temp 98.8 F 04/18/18 15:40 Pulse 75 04/19/18 09:15 Resp 21 04/19/18 09:15 BP 132/98 04/19/18 09:15 Pulse Ox 98 04/19/18 09:01 - Physical Examination General: No Apparent Distress HEENT: Positive: PERRL, Normocephaly, Mucus Membranes Moist Neck: Positive: neck supple, trachea midline Cardiac: Positive: Reg Rate and Rhythm, S1/S2 Lungs: Positive: Decreased Breath Sounds Neuro: Positive: Grossly Intact Abdomen: Positive: Soft. Negative: Tender Skin: Negative: Rash, Wound Musculoskeletal: No Pain Extremities: Absent: edema - Labs and Meds Cardiac Enzymes 04/18/18 Range/Units 10:08 AST 18 (5-40) units/L Coagulation 04/18/18 04/18/18 Range/Units 16:57 21:02 PT 14.0 15.2 H (12.2-14.9) Sec. INR 1.02 1.13 (0.87-1.13) APTT 34.4 29.2 (24.2-36.6) Sec. CBC 04/18/18 04/18/18 04/19/18 Range/Units 10:08 23:12 03:53 WBC 9.9 10.9 (4.5-11.0) K/mm3 RBC 4.70 3.90 (3.65-5.03) M/mm3 Hgb 12.1 9.7 L 10.1 (10.1-14.3) gm/dl Hct 37.0 30.3 D 31.0 (30.3-42.9) % Plt Count 356 328 351 (140-440) K/mm3 Lymph # 0.5 L 1.3 (1.2-5.4) K/mm3 Dare # 0.8 1.4 H (0.0-0.8) K/mm3 Eos # 0.1 0.1 (0.0-0.4) K/mm3 Baso # 0.1 0.0 (0.0-0.1) K/mm3 Comprehensive Metabolic Panel 04/18/18 04/19/18 Range/Units 10:08 03:53 Sodium 134 L 134 L (137-145) mmol/L Potassium 4.4 4.1 (3.6-5.0) mmol/L Chloride 99.9 102.6 (98-107) mmol/L Carbon Dioxide 20 L 17 L (22-30) mmol/L BUN 21 H 16 (7-17) mg/dL Creatinine 1.0 0.9 (0.7-1.2) mg/dL Glucose 138 H 162 H (65-100) mg/dL Calcium 9.1 7.3 L D (8.4-10.2) mg/dL AST 18 (5-40) units/L ALT 15 (7-56) units/L Alkaline Phosphatase 93 (35-129) units/L Total Protein 7.0 (6.3-8.2) g/dL Albumin 3.8 L (3.9-5) g/dL - Imaging and Cardiology EKG: report reviewed, image reviewed Echo: pending, report reviewed (08/2017: EF 55-60%) - Telemetry EKG Rhythm: Sinus Rhythm
[2018-04-19] MEDS: SODIUM CHLORIDE FLUSH SYRINGE 10 ML IV SCH ×2 (10:34→23:00)
[2018-04-19] MEDS ORDERED: PLAVIX ONE (10:43)
[2018-04-19] MEDS ORDERED: celeXA ONE (10:43)
[2018-04-19] MEDS: celeXA PO SCH (11:25)
[2018-04-19] MEDS: WELLBUTRIN SR PO SCH ×2 (11:26→23:12)
[2018-04-19] MEDS: HEPARIN/ 0.45% NACL-25,000 UNIT/500 ML 25,000 UNIT/500 ML BAG IV SCH (11:33)
[2018-04-19] MEDS ORDERED: HEPARIN/ 0.45% NACL-25,000 UNIT/500 ML 25,000 UNIT/500 ML BAG ONE (13:05)
--- NOTE | 2018-04-19 13:42 | Consultation ---
History of Present Illness Consult date: 04/19/18 Chief complaint: LLE wound - History of present illness History of present illness: 63 yo F well known to me for management of left lower extremity wound presented to hospital with acute onset shortness or breath and palpitations. She states she was not feeling well yesterday and then started to feel like she couldn't breathe. She was found to be in afib RVR and hypotensive upon ED evaluation. She was treated with IV amlodipine, IVF, IV abx and further w/u. Surgery is being consulted to follow up on left lower extremity wound. The patient is seen in the wound care clinic once per week. She has been progressing well. Wound cultures performed on 04/01 grew out MRSA which was sensitive to Bactrim and so the patient was started on this antibiotic. She has been taking it for over one week without issues. She denies pain in the leg, drainage or smell from the wound, abnormal swelling. Tm in ER was 100.5. Pt states she feels much better today. Past History Past Medical History: CAD, other (Obesity Hypoventilation,) Past Surgical History: appendectomy, Other (stent placement, evacuation of left lower extremity hematoma) Social history: , lives with family. denies: smoking, alcohol abuse, prescription drug abuse Family history: hypertension Medications and Allergies Allergies Allergy/AdvReac Type Severity Reaction Status Date / Time No Known Allergies Allergy Verified 04/18/18 09:14 Home Medications Medication Instructions Recorded Confirmed Last Taken Type Alendronate Sodium [Fosamax] 70 mg PO QWEEK 02/27/18 04/19/18 02/28/18 09:00 History Atorvastatin [Lipitor] 80 mg PO QHS 02/27/18 04/19/18 02/28/18 21:00 History Citalopram Hydrobromide 20 mg PO DAILY 02/27/18 04/19/18 02/28/18 09:00 History [Citalopram HBr] Clopidogrel Bisulfate [Clopidogrel] 75 mg PO DAILY 02/27/18 04/19/18 02/28/18 09:00 History Cyanocobalamin [Vitamin B-12] 1,000 mcg IM QMONTH 02/27/18 04/19/1818 History Lisinopril [Zestril TAB] 40 mg PO DAILY 02/27/18 04/19/18 02/28/18 09:00 History Metoprolol [Lopressor TAB] 50 mg PO DAILY 02/27/18 04/19/18 02/28/18 09:00 History buPROPion HCl [Bupropion HCl ER] 200 mg PO BID 02/27/18 04/19/18 02/28/18 21:00 History Active Meds: Active Medications Albuterol (Proventil) 2.5 mg IH Q3HRT PRN PRN Reason: Shortness Of Breath Alendronate Sodium (Fosamax) 70 mg PO QWEEK [facility] Atorvastatin Calcium (Lipitor) 80 mg PO QHS [facility] Last Admin: 04/18/18 23:35 Dose: 80 mg Documented by: Bupropion HCl (Wellbutrin Sr) 200 mg PO BID [facility] Last Admin: 04/19/18 11:26 Dose: 200 mg Documented by: Citalopram Hydrobromide (Celexa) 20 mg PO DAILY [facility] Last Admin: 04/19/18 11:25 Dose: 20 mg Documented by: Cyanocobalamin (Vitamin B-12) 1,000 mcg IM QMONTH [facility] Last Admin: 04/18/18 23:35 Dose: 1,000 mcg Documented by: Amiodarone HCl 900 mg/ (Dextrose) 500 mls @ 33.33 mls/hr IV DIRECT JOSEE; Protocol Last Titration: 04/19/18 00:10 Dose: 0.5 mg/min, 16.67 mls/hr Documented by: Heparin Sodium/Sodium Chloride (Heparin/ 0.45% Nacl-25,000 Unit/500 Ml) 25,000 unit in 500 mls @ 30 mls/hr IV TITR JOSEE; Protocol Last Admin: 04/19/18 11:33 Dose: 1,400 units/hr, 28 mls/hr Documented by: Lorazepam (Ativan) 1 mg IV Q4H PRN PRN Reason: Agitation Oxycodone/Acetaminophen (Percocet 5/325) 2 tab PO Q6H PRN PRN Reason: Pain, Moderate (4-6) Oxycodone/Acetaminophen (Percocet 5/325) 1 tab PO Q6H PRN PRN Reason: Pain, Moderate (4-6) Last Admin: 04/19/18 07:44 Dose: 1 tab Documented by: Sodium Chloride (Sodium Chloride Flush Syringe 10 Ml) 10 ml IV BID JOSEE Last Admin: 04/19/18 10:34 Dose: 10 ml Documented by: Sodium Chloride (Sodium Chloride Flush Syringe 10 Ml) 10 ml IV PRN PRN PRN Reason: LINE FLUSH Review of Systems All systems: negative (10 pt ROS performed and negative except for that listed in HPI) Exam Vital Signs Temp Pulse Resp BP Pulse Ox 98.8 F 51 L 22 103/76 97 04/18/18 09:56 04/18/18 09:56 04/18/18 09:56 04/18/18 09:56 04/18/18 09:56 Narrative exam: Gen; AAOx3. NAD ENT: no scleral icterus or conjunctival pallor CV: s1, s2+. sinus rhythm Resp; even and unlabored Ext; no c/c/e. LLE wound healing well. L lateral calf wound appears healed. L medial calf wound with pink base. Periwound tissue unremarkable. No drainage. No odor. Dry dressing applied. Results - Labs 04/19/18 03:53 04/19/18 03:53 Abnormal lab results 04/18/18 04/18/18 04/18/18 Range/Units 16:57 21:02 22:47 Hgb (10.1-14.3) gm/dl MCH (28-32) pg RDW (13.2-15.2) % Lymph % (Auto) (13.4-35.0) % [place] % (Auto) (0.0-7.3) % [place] # (0.0-0.8) K/mm3 Seg Neutrophils % (40.0-70.0) % Seg Neutrophils # (1.8-7.7) K/mm3 PT 15.2 H (12.2-14.9) Sec. D-Dimer 519.87 H (0-234) ng/mlDDU Heparin Anti-Xa Level (0.3-0.7) U.I./ml Sodium (137-145) mmol/L Carbon Dioxide (22-30) mmol/L Glucose (65-100) mg/dL Calcium (8.4-10.2) mg/dL Ur Specific [place] 1.054 H (1.003-1.030) 04/18/18 04/19/18 04/19/18 Range/Units 23:12 03:53 03:53 Hgb 9.7 L (10.1-14.3) gm/dl MCH 26 L (28-32) pg RDW 18.1 H (13.2-15.2) % Lymph % (Auto) 12.1 L (13.4-35.0) % [place] % (Auto) 12.7 H (0.0-7.3) % [place] # 1.4 H (0.0-0.8) K/mm3 Seg Neutrophils % 74.3 H (40.0-70.0) % Seg Neutrophils # 8.1 H (1.8-7.7) K/mm3 PT (12.2-14.9) Sec. D-Dimer (0-234) ng/mlDDU Heparin Anti-Xa Level (0.3-0.7) U.I./ml Sodium 134 L (137-145) mmol/L Carbon Dioxide 17 L (22-30) mmol/L Glucose 162 H (65-100) mg/dL Calcium 7.3 L D (8.4-10.2) mg/dL Ur Specific [place] (1.003-1.030) 04/19/18 Range/Units 03:53 Hgb (10.1-14.3) gm/dl MCH (28-32) pg RDW (13.2-15.2) % Lymph % (Auto) (13.4-35.0) % [place] % (Auto) (0.0-7.3) % [place] # (0.0-0.8) K/mm3 Seg Neutrophils % (40.0-70.0) % Seg Neutrophils # (1.8-7.7) K/mm3 PT (12.2-14.9) Sec. D-Dimer (0-234) ng/mlDDU Heparin Anti-Xa Level 0.74 H (0.3-0.7) U.I./ml Sodium (137-145) mmol/L Carbon Dioxide (22-30) mmol/L Glucose (65-100) mg/dL Calcium (8.4-10.2) mg/dL Ur Specific [place] (1.003-1.030) Diabetes panel 04/19/18 Range/Units 03:53 Sodium 134 L (137-145) mmol/L Potassium 4.1 (3.6-5.0) mmol/L Chloride 102.6 (98-107) mmol/L Carbon Dioxide 17 L (22-30) mmol/L BUN 16 (7-17) mg/dL Creatinine 0.9 (0.7-1.2) mg/dL Glucose 162 H (65-100) mg/dL Calcium 7.3 L D (8.4-10.2) mg/dL Thyroid panel 04/18/18 Range/Units 16:57 TSH 0.892 (0.270-4.200) mlU/mL Calcium panel 04/19/18 Range/Units 03:53 Calcium 7.3 L D (8.4-10.2) mg/dL Pituitary panel 04/18/18 04/19/18 Range/Units 16:57 03:53 Sodium 134 L (137-145) mmol/L Potassium 4.1 (3.6-5.0) mmol/L Chloride 102.6 (98-107) mmol/L Carbon Dioxide 17 L (22-30) mmol/L BUN 16 (7-17) mg/dL Creatinine 0.9 (0.7-1.2) mg/dL Glucose 162 H (65-100) mg/dL Calcium 7.3 L D (8.4-10.2) mg/dL TSH 0.892 (0.270-4.200) mlU/mL Adrenal panel 04/19/18 Range/Units 03:53 Sodium 134 L (137-145) mmol/L Potassium 4.1 (3.6-5.0) mmol/L Chloride 102.6 (98-107) mmol/L Carbon Dioxide 17 L (22-30) mmol/L BUN 16 (7-17) mg/dL Creatinine 0.9 (0.7-1.2) mg/dL Glucose 162 H (65-100) mg/dL Calcium 7.3 L D (8.4-10.2) mg/dL Assessment and Plan 63 yo F with LLE wounds, recent cultures with MRSA Plan: 1. continue current wound care, no need for debridement 2. wound care c/s pending 3. abx per 1' - pt on vanco and zosyn. Can be discharged on bactrim for left leg wound as long as no contraindication per 1' service 4. Left leg elevation 5. w/u and treatment of hypotension, afib per 1' service Thank you, please call with questions
[2018-04-19] MEDS ORDERED: ARTIFICIAL TEARS OPHTH OINT OU PRN (13:50)
[2018-04-19] MEDS ORDERED: VASELINE LIP THERAPY TP PRN (13:50)
[2018-04-19] MEDS ORDERED: SUBLIMAZE IV PRN (13:50)
--- NOTE | 2018-04-19 15:10 | Progress Note ---
Assessment and Plan Assessment and plan: 63 YO Female with MO,Obesity Hypoventilation on CPAP, CAD S/P Stent Placement, HTN presents to ED for evaluation. Pt states that she has experienced shortness of breath, chest palpitations, and chest discomfort over the past 2 days with worsening symptoms over the same time frame. Pt seen and evaluated by her PCP and was initially treated with oral antibiotic therapy without relief of symptoms that were suspected secondary to a respiratory tract infection. Pt subsequently presents to ED for evaluation. Pt seen and evaluated in ED and found to have Atrial Flutter with RVR, Acute Respiratory Failure, as well as Left Leg Cellulitis. Pt treated with medical cardioversion with cardizem without improvement. Cardiology consulted in ED. Pt then placed on amidarone drip and heparin drip as per cardiology request. Pt declined synchronized cardioversion. Pt admitted to ICU. Pt denies fever, chills, NVD, Trauma, BRBPR, Hemoptysis, or recent ill contacts. - Patient Problems (1) Atrial flutter with rapid ventricular response Current Visit: Yes Status: Acute Plan to address problem: Amiodarone drip, heparin drip as per cardiology request, Pt declined synchronized cardioversion, supportive care, cardiology consulted and input noted. Resume Home Toprol xl WHEN BP PERMITS Echo Convert to NOAC prior to discharge (2) Cellulitis/lEFT LEG WOUND Current Visit: Yes Status: Acute Qualifiers: Site of cellulitis of extremity: lower extremity Laterality: left Plan to address problem: Empiric antibiotic therapy x 1 dose, wound care, CBC, supportive care, Surgery team consulted in ED (3) Respiratory failure/Possible underlying Pneumonia with no clear evidence of sepsis Current Visit: Yes Status: Acute Qualifiers: Chronicity: acute Respiratory failure complication: hypoxia Qualified Code(s): J96.01 - Acute respiratory failure with hypoxia Plan to address problem: Supplemental oxygen, nebulizer therapy, NIPPV as clinically indicated, chest x ray, pulse oximetry (4) Obesity hypoventilation syndrome/Morbid obesity Current Visit: Yes Status: Acute Plan to address problem: Supplemental oxygen, nebulizer therapy, NIPPV qhs, early ambulation, pulmonary toilet, balanced diet, increased physical activity at discharge (5) DVT prophylaxis Current Visit: Yes Status: Acute Plan to address problem: SCD to BLE while in bed The high probability of a clinically significant, sudden or life threatening deterioration of the [cardiac,renal, respiratory] system(s) required my full and direct attention, intervention and personal management. The aggregate critical care time was [65] minutes. This time is in addition to time spent performing reported procedures but includes the following: [x] Data Review and interpretation [x] Patient assessment and monitoring of vital signs [x] Documentation [x] Medication orders and management History Interval history: Patient seen and examined, reports some improvement but still with sensation of shortness but improving. No chest pain at this time and no dizziness. Hospitalist Physical - Physical exam Narrative exam: VITAL SIGNS: Reviewed. GENERAL: The patient appeared well nourished and normally developed. OBESE. Vital signs as documented. HEAD: No signs of head trauma. EYES: Pupils are equal. Extraocular motions intact. EARS: Hearing grossly intact. MOUTH: Oropharynx is normal. NECK: No adenopathy, no JVD. CHEST: Chest with clear breath sounds bilaterally. No wheezes, rales, or rhonchi. CARDIAC: Regular rate and rhythm. S1 and S2, without murmurs, gallops, or rubs. VASCULAR: No Edema. Peripheral pulses normal and equal in all extremities. ABDOMEN: Soft, without detectable tenderness. No sign of distention. No rebound or guarding, and no masses palpated. Bowel Sounds normal. MUSCULOSKELETAL: Good range of motion of all major joints. Extremities without clubbing, cyanosis or edema. NEUROLOGIC EXAM: Alert and oriented x 3. No focal sensory or strength deficits. Speech normal. Follows commands. PSYCHIATRIC: Mood normal. SKIN: Right neck line. Left lower ext wound-see wound care documentation - Constitutional Vitals: Temp Pulse Resp BP Pulse Ox 98.8 F 77 28 H 115/52 99 04/18/18 15:40 04/19/18 15:00 04/19/18 15:00 04/19/18 15:00 04/19/18 15:00 General appearance: Present: mild distress, obese Results - Labs CBC & Chem 7: 04/20/18 05:08 04/20/18 05:08 Labs: Laboratory Last Values WBC 10.9 K/mm3 (4.5-11.0) 04/19/18 03:53 RBC 3.90 M/mm3 (3.65-5.03) 04/19/18 03:53 Hgb 10.1 gm/dl (10.1-14.3) 04/19/18 03:53 Hct 31.0 % (30.3-42.9) 04/19/18 03:53 MCV 80 fl (79-97) 04/19/18 03:53 MCH 26 pg (28-32) L 04/19/18 03:53 MCHC 33 % (30-34) 04/19/18 03:53 RDW 18.1 % (13.2-15.2) H 04/19/18 03:53 Plt Count 351 K/mm3 (140-440) 04/19/18 03:53 Lymph % (Auto) 12.1 % (13.4-35.0) L 04/19/18 03:53 [place] % (Auto) 12.7 % (0.0-7.3) H 04/19/18 03:53 Eos % (Auto) 0.6 % (0.0-4.3) 04/19/18 03:53 Baso % (Auto) 0.3 % (0.0-1.8) 04/19/18 03:53 Lymph # 1.3 K/mm3 (1.2-5.4) 04/19/18 03:53 [place] # 1.4 K/mm3 (0.0-0.8) H 04/19/18 03:53 Eos # 0.1 K/mm3 (0.0-0.4) 04/19/18 03:53 Baso # 0.0 K/mm3 (0.0-0.1) 04/19/18 03:53 Seg Neutrophils % 74.3 % (40.0-70.0) H 04/19/18 03:53 Seg Neutrophils # 8.1 K/mm3 (1.8-7.7) H 04/19/18 03:53 PT 15.2 Sec. (12.2-14.9) H 04/18/18 21:02 INR 1.13 (0.87-1.13) 04/18/18 21:02 APTT 29.2 Sec. (24.2-36.6) 04/18/18 21:02 D-Dimer 519.87 ng/mlDDU (0-234) H 04/18/18 16:57 Heparin Anti-Xa Level 0.69 U.I./ml (0.3-0.7) 04/19/18 10:50 VBG pH 7.359 (7.320-7.420) 04/18/18 17:35 Sodium 134 mmol/L (137-145) L 04/19/18 03:53 Potassium 4.1 mmol/L (3.6-5.0) 04/19/18 03:53 Chloride 102.6 mmol/L (98-107) 04/19/18 03:53 Carbon Dioxide 17 mmol/L (22-30) L 04/19/18 03:53 Anion Gap 19 mmol/L 04/19/18 03:53 BUN 16 mg/dL (7-17) 04/19/18 03:53 Creatinine 0.9 mg/dL (0.7-1.2) 04/19/18 03:53 Estimated GFR > 60 ml/min 04/19/18 03:53 BUN/Creatinine Ratio 18 % 04/19/18 03:53 Glucose 162 mg/dL (65-100) H 04/19/18 03:53 Lactic Acid 1.10 mmol/L (0.7-2.0) 04/18/18 17:35 Calcium 7.3 mg/dL (8.4-10.2) L D 04/19/18 03:53 Magnesium 1.90 mg/dL (1.7-2.3) 04/18/18 17:20 Total Bilirubin 0.30 mg/dL (0.1-1.2) 04/18/18 10:08 AST 18 units/L (5-40) 04/18/18 10:08 ALT 15 units/L (7-56) 04/18/18 10:08 Alkaline Phosphatase 93 units/L (35-129) 04/18/18 10:08 Troponin T < 0.010 ng/mL (0.00-0.029) 04/18/18 15:52 Total Protein 7.0 g/dL (6.3-8.2) 04/18/18 10:08 Albumin 3.8 g/dL (3.9-5) L 04/18/18 10:08 Albumin/Globulin Ratio 1.2 % 04/18/18 10:08 TSH 0.892 mlU/mL (0.270-4.200) 04/18/18 16:57 Free T4 0.99 ng/dL (0.76-1.46) 04/18/18 16:57 Urine Color Yellow (Yellow) 04/18/18 22:47 Urine Turbidity Clear (Clear) 04/18/18 22:47 Urine pH 5.0 (5.0-7.0) 04/18/18 22:47 Ur Specific [place] 1.054 (1.003-1.030) H 04/18/18 22:47 Urine Protein <15 mg/dl mg/dL (Negative) 04/18/18 22:47 Urine Glucose (UA) Neg mg/dL (Negative) 04/18/18 22:47 Urine Ketones Neg mg/dL (Negative) 04/18/18 22:47 Urine Blood Neg (Negative) 04/18/18 22:47 Urine Nitrite Neg (Negative) 04/18/18 22:47 Urine Bilirubin Neg (Negative) 04/18/18 22:47 Urine Urobilinogen < 2.0 mg/dL (<2.0) 04/18/18 22:47 Ur Leukocyte Esterase Neg (Negative) 04/18/18 22:47 Urine WBC (Auto) < 1.0 /HPF (0.0-6.0) 04/18/18 22:47 Urine RBC (Auto) 6.0 /HPF (0.0-6.0) 04/18/18 22:47 U Epithel Cells (Auto) < 1.0 /HPF (0-13.0) 04/18/18 22:47 Urine Mucus Few /HPF 04/18/18 22:47
--- NOTE | 2018-04-19 15:40 | XRay Report ---
FINAL REPORT EXAM: XR CHEST 1V AP HISTORY: ETT placement TECHNIQUE: Frontal chest radiograph. PRIORS: 04/18/2018. FINDINGS: Right IJ central venous catheter tip projects in the lower SVC. Unchanged aortic calculi. The cardiom ediastinal silhouette is normal. Worsened patchy multifocal left lung opacities. No pleural effusion. No pneumothorax. No acute osseous abnormality. IMPRESSION: Worsened left lung opacities which may represent multifocal pneumonia versus atelectasis and/or scarr ing.
[2018-04-19] MEDS ORDERED: fentaNYL DRIP Premix 2,000 MCG/100 ML BAG IV SCH (16:00)
[2018-04-20 05:29] LABS: Hematocrit 26.5 % (30.3-42.9); Hemoglobin 8.6 gm/dl (10.1-14.3); Mean Corpuscular HGB Conc 33 % (30-34); Mean Corpuscular Volume 79 fl (79-97); Platelet Count 296 K/mm3 (140-440); Red Blood Count 3.36 M/mm3 (3.65-5.03); Red Cell Distribution Width 17.8 % (13.2-15.2)
[2018-04-20 05:50] LABS: Alanine Aminotransferase 18 units/L (7-56); Albumin 3.2 g/dL (3.9-5); BUN/Creatinine Ratio 16; Blood Urea Nitrogen 13 mg/dL (7-17); Calcium 7.6 mg/dL (8.4-10.2); Hemolysis Index 1
[2018-04-20] MEDS ORDERED: NACL 0.9% 500 ML 500 ML IV SCH (06:00)
[2018-04-20] MEDS: LEVOPHED DRIP 4 MG/NS 250 ML 4 MG/250 ML BAG IV SCH ×2 (07:55→20:35)
[2018-04-20] MEDS: PERCOCET 5/325 PO PRN ×2 (08:00→19:45)
--- NOTE | 2018-04-20 09:25 | Progress Note ---
Assessment and Plan Assessment and plan: 63 YO Female with MO,Obesity Hypoventilation on CPAP, CAD S/P Stent Placement, HTN presents to ED for evaluation. Pt states that she has experienced shortness of breath, chest palpitations, and chest discomfort over the past 2 days with worsening symptoms over the same time frame. Pt seen and evaluated by her PCP and was initially treated with oral antibiotic therapy without relief of symptoms that were suspected secondary to a respiratory tract infection. Pt subsequently presents to ED for evaluation. Pt seen and evaluated in ED and found to have Atrial Flutter with RVR, Acute Respiratory Failure, as well as Left Leg Cellulitis. Pt treated with medical cardioversion with cardizem without improvement. Cardiology consulted in ED. Pt then placed on amidarone drip and heparin drip as per cardiology request. Pt declined synchronized cardioversion. Pt admitted to ICU. Pt denies fever, chills, NVD, Trauma, BRBPR, Hemoptysis, or recent ill contacts. Acute Respiratory failure with multifocal pneumonia Sepsis- POA. On review of record patient had low grade fever on admission. CXR also shows mutifocality of infiltrate Atrial flutter with RVR Shock STATE. Bronchiectasis Left lower ext wound with resolving cellulites- wound culture showing MRSA Obesity Hypoventilation Syndrome Morbid obesity Depression Plan Review of xray shows Multifocal pneumonia Doubt septic shock. Low bp Likely from aflutter Continue abx, add Vancomycin Surgical input noted Continue pressors Continue amiodarone drip and adjust with inclusion on Toprol xl when off pressors. Will need NOAC on discharge per Cardiology DVT/GI prophy The high probability of a clinically significant, sudden or life threatening deterioration of the [cardiac,renal, respiratory] system(s) required my full and direct attention, intervention and personal management. The aggregate critical care time was [35] minutes. This time is in addition to time spent performing reported procedures but includes the following: [x] Data Review and interpretation [x] Patient assessment and monitoring of vital signs [x] Documentation [x] Medication orders and management History Interval history: Patient seen and examined, reports some improvement but still with sensation of shortness but improving. No chest pain at this time and no dizziness. Hospitalist Physical - Physical exam Narrative exam: VITAL SIGNS: Reviewed. GENERAL: The patient appeared well nourished and normally developed. OBESE. Vital signs as documented. HEAD: No signs of head trauma. EYES: Pupils are equal. Extraocular motions intact. EARS: Hearing grossly intact. MOUTH: Oropharynx is normal. NECK: No adenopathy, no JVD. CHEST: Chest with clear breath sounds bilaterally. No wheezes, rales, or rhonchi. CARDIAC: Regular rate and rhythm. S1 and S2, without murmurs, gallops, or rubs. VASCULAR: No Edema. Peripheral pulses normal and equal in all extremities. ABDOMEN: Soft, without detectable tenderness. No sign of distention. No rebound or guarding, and no masses palpated. Bowel Sounds normal. MUSCULOSKELETAL: Good range of motion of all major joints. Extremities without clubbing, cyanosis or edema. NEUROLOGIC EXAM: Alert and oriented x 3. No focal sensory or strength deficits. Speech normal. Follows commands. PSYCHIATRIC: Mood normal. SKIN: Right neck line. Left lower ext wound-see wound care documentation. LLE wound healing well. L lateral calf wound appears healed. L medial calf wound wi th pink base. Periwound tissue unremarkable. No drainage. No odor. Dry dressing applied. - Constitutional Vitals: Temp Pulse Resp BP Pulse Ox 97.5 F L 112 H 17 95/30 99 04/20/18 08:00 04/20/18 07:31 04/20/18 07:31 04/20/18 07:31 04/20/18 08:36 General appearance: Present: mild distress, obese Results - Labs CBC & Chem 7: 04/20/18 05:08 04/20/18 05:08 Labs: Laboratory Last Values WBC 6.7 K/mm3 (4.5-11.0) 04/20/18 05:08 RBC 3.36 M/mm3 (3.65-5.03) L 04/20/18 05:08 Hgb 8.6 gm/dl (10.1-14.3) L 04/20/18 05:08 Hct 26.5 % (30.3-42.9) L 04/20/18 05:08 MCV 79 fl (79-97) 04/20/18 05:08 MCH 26 pg (28-32) L 04/20/18 05:08 MCHC 33 % (30-34) 04/20/18 05:08 RDW 17.8 % (13.2-15.2) H 04/20/18 05:08 Plt Count 296 K/mm3 (140-440) 04/20/18 05:08 Lymph % (Auto) 12.1 % (13.4-35.0) L 04/19/18 03:53 [place] % (Auto) 12.7 % (0.0-7.3) H 04/19/18 03:53 Eos % (Auto) 0.6 % (0.0-4.3) 04/19/18 03:53 Baso % (Auto) 0.3 % (0.0-1.8) 04/19/18 03:53 Lymph # 1.3 K/mm3 (1.2-5.4) 04/19/18 03:53 [place] # 1.4 K/mm3 (0.0-0.8) H 04/19/18 03:53 Eos # 0.1 K/mm3 (0.0-0.4) 04/19/18 03:53 Baso # 0.0 K/mm3 (0.0-0.1) 04/19/18 03:53 Seg Neutrophils % 74.3 % (40.0-70.0) H 04/19/18 03:53 Seg Neutrophils # 8.1 K/mm3 (1.8-7.7) H 04/19/18 03:53 PT 15.2 Sec. (12.2-14.9) H 04/18/18 21:02 INR 1.13 (0.87-1.13) 04/18/18 21:02 APTT 29.2 Sec. (24.2-36.6) 04/18/18 21:02 D-Dimer 519.87 ng/mlDDU (0-234) H 04/18/18 16:57 Heparin Anti-Xa Level 0.58 U.I./ml (0.3-0.7) 04/19/18 Unknown VBG pH 7.359 (7.320-7.420) 04/18/18 17:35 Sodium 134 mmol/L (137-145) L 04/20/18 05:08 Potassium 4.1 mmol/L (3.6-5.0) 04/20/18 05:08 Chloride 104.3 mmol/L (98-107) 04/20/18 05:08 Carbon Dioxide 20 mmol/L (22-30) L 04/20/18 05:08 Anion Gap 14 mmol/L 04/20/18 05:08 BUN 13 mg/dL (7-17) 04/20/18 05:08 Creatinine 0.8 mg/dL (0.7-1.2) 04/20/18 05:08 Estimated GFR > 60 ml/min 04/20/18 05:08 BUN/Creatinine Ratio 16 % 04/20/18 05:08 Glucose 114 mg/dL (65-100) H 04/20/18 05:08 Lactic Acid 1.10 mmol/L (0.7-2.0) 04/18/18 17:35 Calcium 7.6 mg/dL (8.4-10.2) L 04/20/18 05:08 Magnesium 1.90 mg/dL (1.7-2.3) 04/18/18 17:20 Total Bilirubin 0.30 mg/dL (0.1-1.2) 04/20/18 05:08 AST 20 units/L (5-40) 04/20/18 05:08 ALT 18 units/L (7-56) 04/20/18 05:08 Alkaline Phosphatase 77 units/L (35-129) 04/20/18 05:08 Troponin T < 0.010 ng/mL (0.00-0.029) 04/18/18 15:52 Total Protein 5.7 g/dL (6.3-8.2) L 04/20/18 05:08 Albumin 3.2 g/dL (3.9-5) L 04/20/18 05:08 Albumin/Globulin Ratio 1.3 % 04/20/18 05:08 TSH 0.892 mlU/mL (0.270-4.200) 04/18/18 16:57 Free T4 0.99 ng/dL (0.76-1.46) 04/18/18 16:57 Urine Color Yellow (Yellow) 04/18/18 22:47 Urine Turbidity Clear (Clear) 04/18/18 22:47 Urine pH 5.0 (5.0-7.0) 04/18/18 22:47 Ur Specific [place] 1.054 (1.003-1.030) H 04/18/18 22:47 Urine Protein <15 mg/dl mg/dL (Negative) 04/18/18 22:47 Urine Glucose (UA) Neg mg/dL (Negative) 04/18/18 22:47 Urine Ketones Neg mg/dL (Negative) 04/18/18 22:47 Urine Blood Neg (Negative) 04/18/18 22:47 Urine Nitrite Neg (Negative) 04/18/18 22:47 Urine Bilirubin Neg (Negative) 04/18/18 22:47 Urine Urobilinogen < 2.0 mg/dL (<2.0) 04/18/18 22:47 Ur Leukocyte Esterase Neg (Negative) 04/18/18 22:47 Urine WBC (Auto) < 1.0 /HPF (0.0-6.0) 04/18/18 22:47 Urine RBC (Auto) 6.0 /HPF (0.0-6.0) 04/18/18 22:47 U Epithel Cells (Auto) < 1.0 /HPF (0-13.0) 04/18/18 22:47 Urine Mucus Few /HPF 04/18/18 22:47
[2018-04-20] MEDS: celeXA PO SCH (10:32)
[2018-04-20] MEDS: ATIVAN IV PRN ×2 (10:32→19:45)
[2018-04-20] MEDS: WELLBUTRIN SR PO SCH ×2 (10:32→21:53)
[2018-04-20] MEDS: ROCEPHIN/NS 2 GM/100 ML 2 GM/100 ML BAG IV SCH (10:33)
[2018-04-20] MEDS: SODIUM CHLORIDE FLUSH SYRINGE 10 ML IV SCH ×2 (10:34→21:55)
[2018-04-20] MEDS: ZITHROMAX 500 MG in NACL 0.9% 250ML 250 ML IV SCH (10:41)
[2018-04-20] MEDS ORDERED: VANCOMYCIN PHARMACY TO DOSE IV SCH (11:00)
[2018-04-20] MEDS ORDERED: CARDIZEM IV ONE (13:00)
[2018-04-20] MEDS ORDERED: NACL 0.9% 1000 ML 1,000 ML IV ONE (13:00)
[2018-04-20] MEDS: VANCOMYCIN/NS 1 GM/250 ML 1 GM/250 ML BAG IV SCH (14:15)
[2018-04-20] MEDS: HEPARIN/ 0.45% NACL-25,000 UNIT/500 ML 25,000 UNIT/500 ML BAG IV SCH (16:10)
--- NOTE | 2018-04-20 16:50 | Consultation ---
History of Present Illness Consult date: 04/20/18 Requesting physician: KEN CURRAN Reason for consult: other (Atrial Fibrillation with RVR; Hypotension; Acute Hypoxemic Resp Failure) History of present illness: PULMONARY/CCM CONSULT NOTE (Full dictation # [id number]) Please see dictated notes for full details Past History Past Medical History: CAD, other (Obesity Hypoventilation,) Past Surgical History: appendectomy, Other (stent placement, evacuation of left lower extremity hematoma) Social history: , lives with family. denies: smoking, alcohol abuse, prescription drug abuse Family history: hypertension Medications and Allergies Allergies Allergy/AdvReac Type Severity Reaction Status Date / Time sulfamethoxazole Allergy Nausea Verified 04/19/18 22:30 [From Bactrim] trimethoprim [From Bactrim] Allergy Nausea Verified 04/19/18 22:30 adhesive tape AdvReac Itching Verified 04/19/18 22:29 Home Medications Medication Instructions Recorded Confirmed Last Taken Type Alendronate Sodium [Fosamax] 70 mg PO QWEEK 02/27/18 04/19/18 02/28/18 09:00 History Atorvastatin [Lipitor] 80 mg PO QHS 02/27/18 04/19/18 02/28/18 21:00 History Citalopram Hydrobromide 20 mg PO DAILY 02/27/18 04/19/18 02/28/18 09:00 History [Citalopram HBr] Clopidogrel Bisulfate [Clopidogrel] 75 mg PO DAILY 02/27/18 04/19/18 02/28/18 09:00 History Cyanocobalamin [Vitamin B-12] 1,000 mcg IM QMONTH 02/27/18 04/19/1818 History Lisinopril [Zestril TAB] 40 mg PO DAILY 02/27/18 04/19/18 02/28/18 09:00 History Metoprolol [Lopressor TAB] 50 mg PO DAILY 02/27/18 04/19/18 02/28/18 09:00 History buPROPion HCl [Bupropion HCl ER] 200 mg PO BID 02/27/18 04/19/18 02/28/18 21:00 History Active Meds: Active Medications Albuterol (Proventil) 2.5 mg IH Q3HRT PRN PRN Reason: Shortness Of Breath Alendronate Sodium (Fosamax) 70 mg PO QWEEK JOSEE Atorvastatin Calcium (Lipitor) 80 mg PO QHS JOSEE Last Admin: 04/19/18 22:59 Dose: 80 mg Documented by: Bupropion HCl (Wellbutrin Sr) 200 mg PO BID JOSEE Last Admin: 04/20/18 10:32 Dose: 200 mg Documented by: Citalopram Hydrobromide (Celexa) 20 mg PO DAILY JOSEE Last Admin: 04/20/18 10:32 Dose: 20 mg Documented by: Cyanocobalamin (Vitamin B-12) 1,000 mcg IM QMONTH JOSEE Last Admin: 04/18/18 23:35 Dose: 1,000 mcg Documented by: Amiodarone HCl 900 mg/ (Dextrose) 500 mls @ 33.33 mls/hr IV DIRECT JOSEE; Protocol Last Titration: 04/19/18 00:10 Dose: 0.5 mg/min, 16.67 mls/hr Documented by: Heparin Sodium/Sodium Chloride (Heparin/ 0.45% Nacl-25,000 Unit/500 Ml) 25,000 unit in 500 mls @ 30 mls/hr IV TITR JOSEE; Protocol Last Admin: 04/20/18 16:10 Dose: 1,400 units/hr, 28 mls/hr Documented by: Sodium Chloride (Nacl 0.9% 500 Ml) 500 mls @ 500 mls/hr IV DIRECT JOSEE Last Admin: 04/20/18 06:50 Dose: 500 mls/hr Documented by: Norepinephrine (Levophed Drip 4 Mg/Ns 250 Ml) 4 mg in 250 mls @ 7.5 mls/hr IV TITR JOSEE; Protocol Last Titration: 04/20/18 09:48 Dose: 6 mcg/min, 22.5 mls/hr Documented by: Ceftriaxone Sodium (Rocephin/Ns 2 Gm/100 Ml) 2 gm in 100 mls @ 200 mls/hr IV Q24HR JOSEE; Protocol Last Admin: 04/20/18 10:33 Dose: 200 mls/hr Documented by: Azithromycin 500 mg/ Sodium (Chloride) 250 mls @ 250 mls/hr IV Q24HR JOSEE; Protocol Last Admin: 04/20/18 10:41 Dose: 250 mls/hr Documented by: Vancomycin HCl (Vancomycin/Ns 1 Gm/250 Ml) 1 gm in 250 mls @ 125 mls/hr IV Q12H JOSEE Last Admin: 04/20/18 14:15 Dose: 125 mls/hr Documented by: Lorazepam (Ativan) 1 mg IV Q4H PRN PRN Reason: Agitation Last Admin: 04/20/18 10:32 Dose: 1 mg Documented by: Oxycodone/Acetaminophen (Percocet 5/325) 2 tab PO Q6H PRN PRN Reason: Pain, Moderate (4-6) Last Admin: 04/20/18 08:00 Dose: 2 tab Documented by: Oxycodone/Acetaminophen (Percocet 5/325) 1 tab PO Q6H PRN PRN Reason: Pain, Moderate (4-6) Last Admin: 04/19/18 07:44 Dose: 1 tab Documented by: Sodium Chloride (Sodium Chloride Flush Syringe 10 Ml) 10 ml IV BID [facility] Last Admin: 04/20/18 10:34 Dose: 10 ml Documented by: Sodium Chloride (Sodium Chloride Flush Syringe 10 Ml) 10 ml IV PRN PRN PRN Reason: LINE FLUSH Physical Examination Vital signs: Vital Signs Temp Pulse Resp BP Pulse Ox 98.8 F 51 L 22 103/76 97 04/18/18 09:56 04/18/18 09:56 04/18/18 09:56 04/18/18 09:56 04/18/18 09:56 Results - Laboratory Findings CBC and BMP: 04/20/18 05:08 04/20/18 05:08 PT/INR, D-dimer PT 15.2 Sec. (12.2-14.9) H 04/18/18 21:02 INR 1.13 (0.87-1.13) 04/18/18 21:02 D-Dimer 519.87 ng/mlDDU (0-234) H 04/18/18 16:57 Abnormal lab findings: Abnormal Labs 04/18/18 04/18/18 04/18/18 10:08 10:08 16:57 RBC Hgb Hct MCH 26 L RDW 17.6 H Lymph % (Auto) 4.8 L [place] % (Auto) 8.5 H Lymph # 0.5 L [place] # Seg Neutrophils % 84.9 H Seg Neutrophils # 8.4 H PT D-Dimer 519.87 H Heparin Anti-Xa Level Sodium 134 L Carbon Dioxide 20 L BUN 21 H Glucose 138 H Calcium Total Protein Albumin 3.8 L Ur Specific [place] 04/18/18 04/18/18 04/18/18 21:02 22:47 23:12 RBC Hgb 9.7 L Hct MCH RDW Lymph % (Auto) [place] % (Auto) Lymph # [place] # Seg Neutrophils % Seg Neutrophils # PT 15.2 H D-Dimer Heparin Anti-Xa Level Sodium Carbon Dioxide BUN Glucose Calcium Total Protein Albumin Ur Specific [place] 1.054 H 04/19/18 04/19/18 04/19/18 03:53 03:53 03:53 RBC Hgb Hct MCH 26 L RDW 18.1 H Lymph % (Auto) 12.1 L [place] % (Auto) 12.7 H Lymph # [place] # 1.4 H Seg Neutrophils % 74.3 H Seg Neutrophils # 8.1 H PT D-Dimer Heparin Anti-Xa Level 0.74 H Sodium 134 L Carbon Dioxide 17 L BUN Glucose 162 H Calcium 7.3 L D Total Protein Albumin Ur Specific [place] 04/20/18 04/20/18 05:08 05:08 RBC 3.36 L Hgb 8.6 L Hct 26.5 L MCH 26 L RDW 17.8 H Lymph % (Auto) [place] % (Auto) Lymph # [place] # Seg Neutrophils % Seg Neutrophils # PT D-Dimer Heparin Anti-Xa Level Sodium 134 L Carbon Dioxide 20 L BUN Glucose 114 H Calcium 7.6 L Total Protein 5.7 L Albumin 3.2 L Ur Specific [place]
--- NOTE | 2018-04-20 17:42 | Vascular Lab Report ---
FINAL REPORT EXAM: VL VENOUS DUPLEX LE BILAT HISTORY: dvt TECHNIQUE: Grayscale and color and spectral Doppler ultrasound imaging of the bilateral lower extrem ity was performed for the purposes of assessing for deep venous thrombosis. PRIORS: None. FINDINGS: No evidence of deep venous thrombosis is seen within the common femoral through the posterior tibial and peroneal veins. Normal compression and color flow is seen throughout the venous system of the glynn ateral lower extremities. Normal augmentation. IMPRESSION: Negative for bilateral lower extremity deep venous thrombosis.
--- NOTE | 2018-04-20 23:08 | Consultation ---
PULMONARY AND CRITICAL CARE CONSULTATION NOTE CONSULTING PHYSICIAN: Andrey Crump MD, emergency room doctor. REASON FOR CONSULTATION: Atrial fibrillation with RVR, hypotension. CHIEF COMPLAINT AND HISTORY OF PRESENT ILLNESS: As follows: The patient is a 63-year-old female with past medical history significant amongst other things for a diagnosis of obesity with obesity hypoventilation syndrome, on CPAP as well as coronary artery disease, came into the Emergency Room complaining of about a couple of days of increased shortness of breath, dyspnea on exertion. She did admit to palpitations. She denied any chest pain. Because she was having more dyspnea, her brought her to the Emergency Room. She had been treated on the outpatient level with oral antibiotics for what could have been a viral syndrome, but her symptoms persisted. She denied any cough or expectoration. Denied any hemoptysis. In the emergency room, she was found to be in atrial flutter with a rapid ventricular response as well as an acute hypoxemic respiratory failure. She also has a cellulitis to the left lower extremity that she stated it started after she fell and developed a hematoma, but that she is not having any pain, itching or foul smelling discharge from that area. She admits to about a 10+ pack year tobacco smoking history, but states she quit smoking up to 20 years ago. Really is much of the history of presentation as I have on her. PAST MEDICAL HISTORY: Again, morbid obesity, obesity hypoventilation syndrome, coronary artery disease, hypertension. PAST SURGICAL HISTORY: She has had an appendectomy and she has had coronary artery stenting. MEDICATIONS: She was on at the time I stopped by to see were reviewed, pertinent medications include the following: Albuterol 2.5 mg nebulized q. 3 hours p.r.n. shortness of breath, Fosamax 70 mg p.o. q. week, amiodarone drip was going at I believe 1 mg per minute, Lipitor 80 mg p.o. at bedtime, azithromycin 500 mg IV daily, Wellbutrin 200 mg p.o. b.i.d., Rocephin 2 g IV daily, Celexa 20 mg p.o. daily, vitamin B12 1 mg IM q. month. She was on IV heparin. Ativan 1 mg IV q. 4 hours p.r.n. agitation, Levophed drip was going at 6 mcg per minute, Percocet 5/325 mg 1 tablet p.o. q. 6 hours p.r.n. moderate pain, and vancomycin 1 gram IV q. 12 hours. ALLERGIES: BACTRIM AND ADHESIVE TAPE. Nature of this allergy is unknown. DIET: Obese lady, denies acute weight loss or gain in the preceding few weeks to months. FAMILY AND SOCIAL HISTORY: Lives in the community. Denies current alcohol, tobacco, or illicit drug use or abuse. She does have a [id number] remote tobacco smoking history. Family history is otherwise significant for hypertension. She is . She lives with her . REVIEW OF SYSTEMS: No overt loss of consciousness. No new onset seizures. No new onset focal weakness. Denied gross hematochezia or melena. Denied any diarrhea, denied any nausea and vomiting. Denied polydipsia, polyuria. Denies heat or cold intolerance. Denies any new leg pain or swelling either unilaterally or bilaterally. Complete 13-system review of systems was obtained. Pertinent positives and/or negatives as in body of history above, otherwise noncontributory. PHYSICAL EXAMINATION: VITAL SIGNS: At presentation in the emergency room, she was afebrile, temperature 98.8 degrees Fahrenheit with a pulse of 155, respiratory rate 22, blood pressure 113/62, oxygen sats were 99%, inspired oxygen concentration was not recorded. T-max since she has been in the hospital is 100.5 degrees Fahrenheit. At the time I stopped by to see her, O2 sats were 98%; however, that was on I believe 2 liters nasal cannula. GENERAL: She is an elderly looking obese female, normocephalic, atraumatic, talking to me in full sentences, but with mildly increased respiratory effort at rest. HEAD, EYES, EARS, NOSE AND THROAT: She is anicteric. No conjunctival erythema. Oropharynx is moist, is a Mallampati #4 oropharynx. No gross jugular venous distention. She has a large neck circumference. Grossly, no palpable lymph nodes in the supraclavicular or submandibular lymph node chains. LUNGS: Auscultation of both lung crane significant for diminished bilateral breath sounds, slightly prolonged expiratory phase. No active wheezing. Faint inspiratory rhonchi in the bases. HEART: Heart sounds 1 and 2 are heard. At the time of my evaluation, irregular rate and rhythm and also with a rapid response at about 110 per minute. No rubs or murmurs. ABDOMEN: Soft. It is full, protuberant. Bowel sounds are positive, nontender. No palpable hepatosplenomegaly. EXTREMITIES: Without overt digital clubbing or cyanosis. She has about trace to 1+ bipedal pitting edema. Dorsalis pedis pulses are weakly palpable bilaterally. NEUROLOGIC: Pupils equal, round, about 3 mm, reactive to light. Extraocular muscle movements are intact. She moves all 4 extremities spontaneously. SKIN: The skin is of normal turgor. She has about a 1.5 inch healing ulcer to the left lateral sigala without tenderness, without erythema and without exudation. LABORATORY DATA: From my review are as follows: Admission white cell count 9900, hemoglobin 12.1, hematocrit 37.0, platelet count 356. INR was 1.02. D-dimer was elevated at 520. Serum sodium was 134, potassium 4.4, chloride 100, bicarbonate 20, BUN 21, creatinine 1.0. Glucose was 138. Lactic acid level was within normal limits. Magnesium within normal limits. Liver function tests essentially within normal limits. Troponin was within normal limits. TSH and free T4 within normal limits. Urinalysis was unremarkable. Most recent labs: Serum sodium is still 134. Hemoglobin is 8.6. Blood cultures and urine cultures no growth to date. I have reviewed the chest x-ray, no acute infiltrates. I do agree with chronic looking interstitial markings, possibly postop chest x-ray, some scoliosis. No gross pneumothorax, no gross bony fracture. She does have cardiomegaly. A CT angio was also done. I have reviewed the radiologist's interpretation as well as reviewed the film and I do agree well not the best contrast face timing, but no gross filling defects of the first order vessels consistent with pulmonary emboli, some mediastinal lipomatosis. She probably has had a possible left upper lobe surgery. The lung windows do reveal some areas of scarring and bronchiectasis in the left upper lobe region/lingular region. No gross pneumothorax, no gross bony fractures that I can see. ASSESSMENT: 1. Acute hypoxemic respiratory failure. 2. Atrial fibrillation with rapid ventricular response, new onset. 3. Obesity. 4. Obesity hypoventilation syndrome, plus or minus obstructive sleep apnea. 5. History of coronary artery disease. 6. Hypertension. 7. Anemia that is normocytic. 8. Elevated D-dimer. 9. Mild hyponatremia. 10. Mild metabolic acidosis. 11. Left lower extremity wound. PLAN: Heart rate control is ongoing. We will defer to Cardiology. We will continue amiodarone. Venous thromboembolic disorder workup will be completed with bilateral lower extremity Dopplers. We will continue full anticoagulation at this time for the atrial fibrillation. I will deploy bilevel positive air pressure ventilation therapy at bedtime. I do feel she likely has an element of sleep apnea. I will get an arterial blood gas to get some baseline numbers and to evaluate for evidence of hypercapnia. The wound itself does not look too impressive to me. We will continue broad spectrum antibiotic therapy for now. I will defer to the attending physician in terms of an ID consult. In the meantime, I will get a CRP level and along with lactic acid level, we will use it to help guide clinical decision making/antibiotic de-escalation. She will be placed on GI prophylaxis, especially on full anticoagulation. Flu and pneumonia vaccination will be addressed per protocol. We will wean Levophed, targeting mean arterial pressures greater than or equal to 65 mmHg. A 2D echocardiogram was done. I am able to review the report at this time, it mentions ejection fraction 50-55% without significant diastolic dysfunction. Normal tricuspid valve, trace regurgitation. No mention of right ventricular systolic pressures. I do feel that she may also benefit from gentle diuresis, but we will watch her clinically for now. Electrolytes will be followed and corrected as necessary. Thank you very much for the consult. We will follow along. We will make further recommendations as the picture progresses/becomes clearer. I should mention she also has a right IJ central line and central venous pressures will be monitored as needed to gravity prospecting observer helper clinical decision making. At this time, I spent about 35-40 minutes of critical care time without overlap excluding any procedural time that may be necessary. She is critically ill on life-sustaining interventions including the vasopressors at high risk for deterioration including the risk of from the cardiopulmonary system deterioration. JOB# [id number] NAOMI/KIMBERLEE WALTERS
[2018-04-21] MEDS: VANCOMYCIN/NS 1 GM/250 ML 1 GM/250 ML BAG IV SCH ×2 (05:39→14:31)
[2018-04-21] MEDS: ATIVAN IV PRN ×2 (05:56→16:50)
[2018-04-21] MEDS: HEPARIN/ 0.45% NACL-25,000 UNIT/500 ML 25,000 UNIT/500 ML BAG IV SCH (06:00)
[2018-04-21] MEDS: PROVENTIL IH PRN (09:12)
[2018-04-21] MEDS: ROCEPHIN/NS 2 GM/100 ML 2 GM/100 ML BAG IV SCH (09:53)
[2018-04-21] MEDS: celeXA PO SCH (09:53)
[2018-04-21] MEDS: WELLBUTRIN SR PO SCH ×2 (09:53→21:18)
[2018-04-21] MEDS: ZITHROMAX 500 MG in NACL 0.9% 250ML 250 ML IV SCH (09:53)
[2018-04-21] MEDS: PERCOCET 5/325 PO PRN (09:54)
[2018-04-21] MEDS: SODIUM CHLORIDE FLUSH SYRINGE 10 ML IV SCH ×2 (09:54→21:18)
--- NOTE | 2018-04-21 11:39 | Progress Note ---
Assessment and Plan 63yo WF: 1. Atrial flutter/fib with rvr --> cvr --> sr 2. Subacute hypoxemic respiratory failure * Multifoccal CAP * FRANKY/OHA 3. Septic shock * now off pressors 4. LLE wound with resolving cellulites- wound culture showing MRSA 5. Morbid obesity 6. Anemia 7. Depression Clinically improving cpm Subjective Date of service: 04/21/18 Principal diagnosis: AFlutter Interval history: feels better at bedside Objective Vital Signs Temp Pulse Pulse Pulse Resp Resp BP 04/21/18 11:00 98 H 26 H 117/75 04/21/18 10:45 97 H 18 118/66 04/21/18 10:30 89 25 H 111/49 04/21/18 10:15 96 H 25 H 103/43 04/21/18 10:00 99 H 22 106/37 04/21/18 09:45 93 H 16 114/39 04/21/18 09:31 91 H 89 23 20 114/39 04/21/18 09:15 91 H 19 82/37 04/21/18 09:13 89 22 04/21/18 09:01 101 H 16 92/67 04/21/18 08:45 83 21 124/65 04/21/18 08:30 84 19 133/60 04/21/18 08:15 91 H 14 111/61 04/21/18 08:00 98.7 F 87 24 118/58 04/21/18 07:45 87 21 118/58 04/21/18 07:30 93 H 23 119/48 04/21/18 07:15 90 21 106/70 04/21/18 07:00 90 21 110/67 04/21/18 06:45 136 H 22 113/70 04/21/18 06:31 135 H 22 126/65 04/21/18 06:15 149 H 20 161/138 04/21/18 06:01 152 H 15 161/138 04/21/18 05:45 149 H 31 H 103/70 04/21/18 05:31 121 H 22 103/70 04/21/18 05:15 143 H 20 115/74 04/21/18 05:00 142 H 22 120/74 04/21/18 04:45 130 H 21 122/77 04/21/18 04:31 138 H 21 125/71 04/21/18 04:15 137 H 19 138/76 04/21/18 04:01 136 H 20 138/76 04/21/18 04:00 127 H 21 04/21/18 03:45 97 H 22 144/68 04/21/18 03:33 99.0 F 04/21/18 03:30 91 H 21 138/66 04/21/18 03:15 92 H 22 148/64 04/21/18 03:00 92 H 25 H 136/73 04/21/18 02:45 94 H 15 126/76 04/21/18 02:31 90 21 135/61 04/21/18 02:15 91 H 24 128/59 04/21/18 02:01 131 H 21 103/38 04/21/18 01:45 141 H 22 115/67 04/21/18 01:31 134 H 23 115/67 04/21/18 01:15 135 H 26 H 113/59 04/21/18 01:00 145 H 21 113/59 04/21/18 00:45 133 H 20 111/60 04/21/18 00:30 134 H 19 103/61 04/21/18 00:15 145 H 20 109/65 04/21/18 00:11 146 H 19 106/37 04/21/18 00:00 147 H 132 H 22 110/53 04/20/18 23:50 146 H 22 106/37 04/20/18 23:45 146 H 21 106/37 04/20/18 23:31 145 H 24 97/37 04/20/18 23:15 156 H 31 H 109/67 04/20/18 23:01 144 H 22 94/57 04/20/18 23:00 137 H 19 100/79 04/20/18 22:45 131 H 24 110/66 04/20/18 22:31 133 H 22 109/67 04/20/18 22:15 123 H 24 130/70 04/20/18 22:01 144 H 28 H 130/70 04/20/18 22:00 140 H 04/20/18 21:45 104 H 19 136/61 04/20/18 21:31 144 H 27 H 136/61 04/20/18 21:15 129 H 25 H 99/51 04/20/18 21:00 143 H 18 126/67 04/20/18 20:45 142 H 19 99/51 04/20/18 20:31 144 H 19 113/61 04/20/18 20:15 140 H 22 113/61 04/20/18 20:11 139 H 30 H 113/61 04/20/18 20:01 140 H 30 H 130/91 04/20/18 20:00 99.1 F 22 04/20/18 19:55 04/20/18 19:51 139 H 27 H 113/61 04/20/18 19:41 140 H 23 113/61 04/20/18 19:30 143 H 24 113/61 04/20/18 19:21 143 H 14 04/20/18 19:10 137 H 32 H 117/75 04/20/18 19:01 138 H 36 H 117/75 04/20/18 18:51 142 H 33 H 121/68 04/20/18 18:41 141 H 43 H 121/68 04/20/18 18:30 142 H 28 H 121/68 04/20/18 18:21 138 H 27 H 115/59 04/20/18 18:11 132 H 30 H 115/59 04/20/18 18:01 131 H 26 H 115/59 04/20/18 18:00 04/20/18 17:51 135 H 17 98/59 04/20/18 17:41 122 H 16 98/59 04/20/18 17:30 151 H 24 98/59 04/20/18 17:21 123 H 31 H 120/55 04/20/18 17:11 117 H 25 H 120/55 04/20/18 17:01 122 H 29 H 120/55 04/20/18 16:51 121 H 29 H 116/49 04/20/18 16:41 119 H 22 116/49 04/20/18 16:30 102 H 22 116/49 04/20/18 16:21 123 H 22 103/65 04/20/18 16:11 139 H 26 H 103/65 04/20/18 16:01 133 H 24 113/52 04/20/18 16:00 97.8 F 04/20/18 15:51 116 H 27 H 130/53 04/20/18 15:41 105 H 19 130/53 04/20/18 15:30 123 H 33 H 112/64 04/20/18 15:21 109 H 14 112/64 04/20/18 15:11 134 H 15 112/64 04/20/18 15:01 138 H 25 H 103/65 04/20/18 14:51 123 H 26 H 112/64 04/20/18 14:41 137 H 34 H 112/64 04/20/18 14:30 132 H 25 H 112/64 04/20/18 14:21 129 H 22 119/54 04/20/18 14:11 113 H 23 119/54 04/20/18 14:01 101 H 27 H 119/54 04/20/18 14:00 04/20/18 13:51 99 H 24 117/42 04/20/18 13:41 112 H 31 H 117/42 04/20/18 13:31 106 H 22 117/42 04/20/18 13:21 123 H 23 129/61 04/20/18 13:11 139 H 25 H 129/61 04/20/18 13:01 139 H 25 H 129/61 04/20/18 12:51 139 H 29 H 107/47 04/20/18 12:41 138 H 23 107/47 04/20/18 12:34 144 H 107/47 04/20/18 12:31 141 H 22 107/47 04/20/18 12:21 140 H 18 106/46 04/20/18 12:11 139 H 19 106/46 04/20/18 12:00 98.1 F 140 H 21 106/46 04/20/18 11:51 140 H 20 105/51 04/20/18 11:41 142 H 22 105/51 Pulse Ox 04/21/18 11:00 99 04/21/18 10:45 100 04/21/18 10:30 99 04/21/18 10:15 99 04/21/18 10:00 99 04/21/18 09:45 99 04/21/18 09:31 100 04/21/18 09:15 99 04/21/18 09:13 04/21/18 09:01 98 04/21/18 08:45 99 04/21/18 08:30 100 04/21/18 08:15 96 04/21/18 08:00 97 04/21/18 07:45 98 04/21/18 07:30 98 04/21/18 07:15 98 04/21/18 07:00 04/21/18 06:45 04/21/18 06:31 04/21/18 06:15 04/21/18 06:01 04/21/18 05:45 04/21/18 05:31 04/21/18 05:15 04/21/18 05:00 04/21/18 04:45 04/21/18 04:31 04/21/18 04:15 04/21/18 04:01 04/21/18 04:00 99 04/21/18 03:45 04/21/18 03:33 04/21/18 03:30 04/21/18 03:15 04/21/18 03:00 04/21/18 02:45 04/21/18 02:31 04/21/18 02:15 04/21/18 02:01 99 04/21/18 01:45 99 04/21/18 01:31 99 04/21/18 01:15 98 04/21/18 01:00 97 04/21/18 00:45 98 04/21/18 00:30 98 04/21/18 00:15 98 04/21/18 00:11 98 04/21/18 00:00 98 04/20/18 23:50 99 04/20/18 23:45 98 04/20/18 23:31 99 04/20/18 23:15 97 04/20/18 23:01 99 04/20/18 23:00 99 04/20/18 22:45 99 04/20/18 22:31 98 04/20/18 22:15 98 04/20/18 22:01 100 04/20/18 22:00 04/20/18 21:45 99 04/20/18 21:31 98 04/20/18 21:15 97 04/20/18 21:00 99 04/20/18 20:45 100 04/20/18 20:31 99 04/20/18 20:15 99 04/20/18 20:11 100 04/20/18 20:01 100 04/20/18 20:00 99 04/20/18 19:55 100 04/20/18 19:51 100 04/20/18 19:41 100 04/20/18 19:30 100 04/20/18 19:21 99 04/20/18 19:10 98 04/20/18 19:01 100 04/20/18 18:51 98 04/20/18 18:41 95 04/20/18 18:30 99 04/20/18 18:21 100 04/20/18 18:11 100 04/20/18 18:01 99 04/20/18 18:00 100 04/20/18 17:51 100 04/20/18 17:41 97 04/20/18 17:30 99 04/20/18 17:21 98 04/20/18 17:11 100 04/20/18 17:01 100 04/20/18 16:51 99 04/20/18 16:41 100 04/20/18 16:30 99 04/20/18 16:21 99 04/20/18 16:11 99 04/20/18 16:01 100 04/20/18 16:00 100 04/20/18 15:51 100 04/20/18 15:41 100 04/20/18 15:30 92 04/20/18 15:21 99 04/20/18 15:11 99 04/20/18 15:01 97 04/20/18 14:51 98 04/20/18 14:41 97 04/20/18 14:30 96 04/20/18 14:21 98 04/20/18 14:11 96 04/20/18 14:01 97 04/20/18 14:00 100 04/20/18 13:51 96 04/20/18 13:41 97 04/20/18 13:31 97 04/20/18 13:21 97 04/20/18 13:11 97 04/20/18 13:01 97 04/20/18 12:51 96 04/20/18 12:41 94 04/20/18 12:34 04/20/18 12:31 95 04/20/18 12:21 96 04/20/18 12:11 95 04/20/18 12:00 96 04/20/18 11:51 96 04/20/18 11:41 95 - Physical Examination General: No Apparent Distress HEENT: Positive: PERRL, Normocephaly, Mucus Membranes Moist Neck: Positive: neck supple, trachea midline Neuro: Positive: Grossly Intact Abdomen: Positive: Soft. Negative: Tender Skin: Negative: Rash, Wound Musculoskeletal: No Pain Extremities: Absent: edema - Imaging and Cardiology EKG: report reviewed, image reviewed Echo: pending, report reviewed (08/2017: EF 55-60%)
[2018-04-21] MEDS ORDERED: BACTRIM DS PO SCH (12:00)
--- NOTE | 2018-04-21 12:18 | Progress Note ---
Assessment and Plan Assessment and plan: 63 YO Female with MO,Obesity Hypoventilation on CPAP, CAD S/P Stent Placement, HTN presents to ED for evaluation. Pt states that she has experienced shortness of breath, chest palpitations, and chest discomfort over the past 2 days with worsening symptoms over the same time frame. Pt seen and evaluated by her PCP and was initially treated with oral antibiotic therapy without relief of symptoms that were suspected secondary to a respiratory tract infection. Pt subsequently presents to ED for evaluation. Pt seen and evaluated in ED and found to have Atrial Flutter with RVR, Acute Respiratory Failure, as well as Left Leg Cellulitis. Pt treated with medical cardioversion with cardizem without improvement. Cardiology consulted in ED. Pt then placed on amidarone drip and heparin drip as per cardiology request. Pt declined synchronized cardioversion. Pt admitted to ICU. Pt denies fever, chills, NVD, Trauma, BRBPR, Hemoptysis, or recent ill contacts. Acute Respiratory failure with multifocal pneumonia Sepsis- POA. On review of record patient had low grade fever on admission. CXR also shows mutifocality of infiltrate Atrial flutter with RVR Shock STATE. Bronchiectasis Left lower ext wound with resolving cellulites- wound culture showing MRSA Obesity Hypoventilation Syndrome Morbid obesity Depression Plan Review of xray shows Multifocal pneumonia Doubt septic shock. Low bp Likely from aflutter Continue abx, add Vancomycin Surgical input noted Continue pressors Continue amiodarone drip and adjust with inclusion on Toprol xl when off pressors. Will need NOAC on discharge per Cardiology DVT/GI prophy The high probability of a clinically significant, sudden or life threatening deterioration of the [cardiac,renal, respiratory] system(s) required my full and direct attention, intervention and personal management. The aggregate critical care time was [35] minutes. This time is in addition to time spent performing reported procedures but includes the following: [x] Data Review and interpretation [x] Patient assessment and monitoring of vital signs [x] Documentation [x] Medication orders and management History Interval history: Patient seen and examined, reports some improvement but still with sensation of shortness but improving. No chest pain at this time and no dizziness. Hospitalist Physical - Physical exam Narrative exam: VITAL SIGNS: Reviewed. GENERAL: The patient appeared well nourished and normally developed. OBESE. Vital signs as documented. HEAD: No signs of head trauma. EYES: Pupils are equal. Extraocular motions intact. EARS: Hearing grossly intact. MOUTH: Oropharynx is normal. NECK: No adenopathy, no JVD. CHEST: Chest with clear breath sounds bilaterally. No wheezes, rales, or rhonchi. CARDIAC: Regular rate and rhythm. S1 and S2, without murmurs, gallops, or rubs. VASCULAR: No Edema. Peripheral pulses normal and equal in all extremities. ABDOMEN: Soft, without detectable tenderness. No sign of distention. No rebound or guarding, and no masses palpated. Bowel Sounds normal. MUSCULOSKELETAL: Good range of motion of all major joints. Extremities without clubbing, cyanosis or edema. NEUROLOGIC EXAM: Alert and oriented x 3. No focal sensory or strength deficits. Speech normal. Follows commands. PSYCHIATRIC: Mood normal. SKIN: Right neck line. Left lower ext wound-see wound care documentation. LLE wound healing well. L lateral calf wound appears healed. L medial calf wound wi th pink base. Periwound tissue unremarkable. No drainage. No odor. Dry dressing applied. - Constitutional Vitals: Temp Pulse Resp BP Pulse Ox 98.1 F 92 H 18 134/61 98 04/21/18 12:00 04/21/18 12:01 04/21/18 12:01 04/21/18 12:01 04/21/18 12:01 General appearance: Present: mild distress, obese Results - Labs CBC & Chem 7: 04/22/18 05:30 04/20/18 05:08 Labs: Laboratory Last Values WBC 6.7 K/mm3 (4.5-11.0) 04/20/18 05:08 RBC 3.36 M/mm3 (3.65-5.03) L 04/20/18 05:08 Hgb 8.6 gm/dl (10.1-14.3) L 04/20/18 05:08 Hct 26.5 % (30.3-42.9) L 04/20/18 05:08 MCV 79 fl (79-97) 04/20/18 05:08 MCH 26 pg (28-32) L 04/20/18 05:08 MCHC 33 % (30-34) 04/20/18 05:08 RDW 17.8 % (13.2-15.2) H 04/20/18 05:08 Plt Count 296 K/mm3 (140-440) 04/20/18 05:08 Lymph % (Auto) 12.1 % (13.4-35.0) L 04/19/18 03:53 [place] % (Auto) 12.7 % (0.0-7.3) H 04/19/18 03:53 Eos % (Auto) 0.6 % (0.0-4.3) 04/19/18 03:53 Baso % (Auto) 0.3 % (0.0-1.8) 04/19/18 03:53 Lymph # 1.3 K/mm3 (1.2-5.4) 04/19/18 03:53 [place] # 1.4 K/mm3 (0.0-0.8) H 04/19/18 03:53 Eos # 0.1 K/mm3 (0.0-0.4) 04/19/18 03:53 Baso # 0.0 K/mm3 (0.0-0.1) 04/19/18 03:53 Seg Neutrophils % 74.3 % (40.0-70.0) H 04/19/18 03:53 Seg Neutrophils # 8.1 K/mm3 (1.8-7.7) H 04/19/18 03:53 PT 15.2 Sec. (12.2-14.9) H 04/18/18 21:02 INR 1.13 (0.87-1.13) 04/18/18 21:02 APTT 29.2 Sec. (24.2-36.6) 04/18/18 21:02 D-Dimer 519.87 ng/mlDDU (0-234) H 04/18/18 16:57 Heparin Anti-Xa Level 0.26 U.I./ml (0.3-0.7) L 04/21/18 08:15 POC ABG pH 7.322 (7.35-7.45) L 04/20/18 17:27 POC ABG pCO2 33.3 (35-45) L 04/20/18 17:27 POC ABG pO2 104 (80-105) 04/20/18 17:27 POC ABG HCO3 17.2 04/20/18 17:27 POC ABG Total CO2 18 04/20/18 17:27 POC ABG O2 Sat 98 04/20/18 17:27 POC ABG Base Excess -9 04/20/18 17:27 VBG pH 7.359 (7.320-7.420) 04/18/18 17:35 FiO2 28 % 04/20/18 17:27 Sodium 134 mmol/L (137-145) L 04/20/18 05:08 Potassium 4.1 mmol/L (3.6-5.0) 04/20/18 05:08 Chloride 104.3 mmol/L (98-107) 04/20/18 05:08 Carbon Dioxide 20 mmol/L (22-30) L 04/20/18 05:08 Anion Gap 14 mmol/L 04/20/18 05:08 BUN 13 mg/dL (7-17) 04/20/18 05:08 Creatinine 0.8 mg/dL (0.7-1.2) 04/20/18 05:08 Estimated GFR > 60 ml/min 04/20/18 05:08 BUN/Creatinine Ratio 16 % 04/20/18 05:08 Glucose 114 mg/dL (65-100) H 04/20/18 05:08 Lactic Acid 1.10 mmol/L (0.7-2.0) 04/18/18 17:35 Calcium 7.6 mg/dL (8.4-10.2) L 04/20/18 05:08 Magnesium 1.90 mg/dL (1.7-2.3) 04/18/18 17:20 Total Bilirubin 0.30 mg/dL (0.1-1.2) 04/20/18 05:08 AST 20 units/L (5-40) 04/20/18 05:08 ALT 18 units/L (7-56) 04/20/18 05:08 Alkaline Phosphatase 77 units/L (35-129) 04/20/18 05:08 Troponin T < 0.010 ng/mL (0.00-0.029) 04/18/18 15:52 C-Reactive Protein 16.50 mg/dL (0.00-1.30) H 04/20/18 18:45 Total Protein 5.7 g/dL (6.3-8.2) L 04/20/18 05:08 Albumin 3.2 g/dL (3.9-5) L 04/20/18 05:08 Albumin/Globulin Ratio 1.3 % 04/20/18 05:08 TSH 0.892 mlU/mL (0.270-4.200) 04/18/18 16:57 Free T4 0.99 ng/dL (0.76-1.46) 04/18/18 16:57 Urine Color Yellow (Yellow) 04/18/18 22:47 Urine Turbidity Clear (Clear) 04/18/18 22:47 Urine pH 5.0 (5.0-7.0) 04/18/18 22:47 Ur Specific [place] 1.054 (1.003-1.030) H 04/18/18 22:47 Urine Protein <15 mg/dl mg/dL (Negative) 04/18/18 22:47 Urine Glucose (UA) Neg mg/dL (Negative) 04/18/18 22:47 Urine Ketones Neg mg/dL (Negative) 04/18/18 22:47 Urine Blood Neg (Negative) 04/18/18 22:47 Urine Nitrite Neg (Negative) 04/18/18 22:47 Urine Bilirubin Neg (Negative) 04/18/18 22:47 Urine Urobilinogen < 2.0 mg/dL (<2.0) 04/18/18 22:47 Ur Leukocyte Esterase Neg (Negative) 04/18/18 22:47 Urine WBC (Auto) < 1.0 /HPF (0.0-6.0) 04/18/18 22:47 Urine RBC (Auto) 6.0 /HPF (0.0-6.0) 04/18/18 22:47 U Epithel Cells (Auto) < 1.0 /HPF (0-13.0) 04/18/18 22:47 Urine Mucus Few /HPF 04/18/18 22:47
[2018-04-21] MEDS ORDERED: VANCOMYCIN PHARMACY TO DOSE IV SCH (13:00)
--- NOTE | 2018-04-21 17:55 | Progress Note ---
Assessment and Plan Acute hypoxemic respiratory failure. Sepsis Syndrome Atrial fibrillation with rapid ventricular response, new onset. Obesity. Obesity hypoventilation syndrome, plus or minus obstructive sleep apnea. History of coronary artery disease. Hypotension Anemia that is normocytic. Elevated D-dimer. Mild hyponatremia. Mild metabolic acidosis. Left lower extremity wound. - continue supplemental oxygen to keep sats > 90% - wean off Levophed as long as MAP > 65 mmHg - continue BIPAP qhs - repeat CXR in am - continue bronchodilators with pulmonary hygiene per RT - continue empiric CAP AB's - continue amiodarone for rate control - cardiology evaluation ongoing - continue glycemic control with SSI for target BG 140-180 mg/dl acutely - tobacco abstinence counseled - weight loss counseled - continue full antocoagulation for A-fib - transition to NOAC per cardiology - GI prophylaxis - aspiration precautions - PT/OT - wound care per WCT - mobility protocol for pressure ulcer prophylaxis - continue other care per attending /other consultants .... care plan discussed with patient and family in room ....re-evaluate in am & prn The high probability of a clinically significant, sudden or life threatening deterioration of the [cardiac,renal, respiratory] system(s) required my full and direct attention, intervention and personal management. The aggregate critical care time was [35] minutes. This time is in addition to time spent performing reported procedures but includes the following: [x] Data Review and interpretation [x] Patient assessment and monitoring of vital signs [x] Documentation [x] Medication orders and management Subjective Date of service: 04/21/18 Principal diagnosis: Acute hypoxemic resp failure; AFib with RVR; Obesity; FRANKY/OHS; CAD. Interval history: Patient is seen today for: Acute hypoxemic respiratory failure; Atrial fibrillation with rapid ventricular response, new onset; Obesity; Obesity hypoventilation syndrome, plus or minus obstructive sleep apnea; History of coronary artery disease. Seen and examined at bedside; 24hour events reviewed; nursing and respiratory care staff consulted; no adverse overnight events reported to me; resting peacefully in bed; relative visiting; just about to wean off levophed; tolerated BIPAP overnight but ABG still not compensated; No N/V/F/C Objective Vital Signs - 12hr 04/21/18 04/21/18 04/21/18 06:01 06:15 06:31 Temperature Pulse Rate 152 H 149 H 135 H Pulse Rate [ Bilateral Throughout] Respiratory 15 20 22 Rate Respiratory Rate [Bilateral Throughout] Blood Pressure 161/138 161/138 126/65 O2 Sat by Pulse Oximetry 04/21/18 04/21/18 04/21/18 06:45 07:00 07:15 Temperature Pulse Rate 136 H 90 90 Pulse Rate [ Bilateral Throughout] Respiratory 22 21 21 Rate Respiratory Rate [Bilateral Throughout] Blood Pressure 113/70 110/67 106/70 O2 Sat by Pulse 98 Oximetry 04/21/18 04/21/18 04/21/18 07:30 07:45 08:00 Temperature 98.7 F Pulse Rate 93 H 87 87 Pulse Rate [ Bilateral Throughout] Respiratory 23 21 24 Rate Respiratory Rate [Bilateral Throughout] Blood Pressure 119/48 118/58 118/58 O2 Sat by Pulse 98 98 97 Oximetry 04/21/18 04/21/18 04/21/18 08:15 08:30 08:45 Temperature Pulse Rate 91 H 84 83 Pulse Rate [ Bilateral Throughout] Respiratory 14 19 21 Rate Respiratory Rate [Bilateral Throughout] Blood Pressure 111/61 133/60 124/65 O2 Sat by Pulse 96 100 99 Oximetry 04/21/18 04/21/18 04/21/18 09:01 09:13 09:15 Temperature Pulse Rate 101 H 91 H Pulse Rate [ 89 Bilateral Throughout] Respiratory 16 19 Rate Respiratory 22 Rate [Bilateral Throughout] Blood Pressure 92/67 82/37 O2 Sat by Pulse 98 99 Oximetry 04/21/18 04/21/18 04/21/18 09:31 09:45 10:00 Temperature Pulse Rate 91 H 93 H 99 H Pulse Rate [ 89 Bilateral Throughout] Respiratory 23 16 22 Rate Respiratory 20 Rate [Bilateral Throughout] Blood Pressure 114/39 114/39 106/37 O2 Sat by Pulse 100 99 99 Oximetry 04/21/18 04/21/18 04/21/18 10:15 10:30 10:45 Temperature Pulse Rate 96 H 89 97 H Pulse Rate [ Bilateral Throughout] Respiratory 25 H 25 H 18 Rate Respiratory Rate [Bilateral Throughout] Blood Pressure 103/43 111/49 118/66 O2 Sat by Pulse 99 99 100 Oximetry 04/21/18 04/21/18 04/21/18 11:00 11:15 11:30 Temperature Pulse Rate 98 H 92 H 94 H Pulse Rate [ Bilateral Throughout] Respiratory 26 H 19 18 Rate Respiratory Rate [Bilateral Throughout] Blood Pressure 117/75 113/63 102/66 O2 Sat by Pulse 99 98 98 Oximetry 04/21/18 04/21/18 04/21/18 11:45 12:00 12:01 Temperature 98.1 F Pulse Rate 86 92 H Pulse Rate [ Bilateral Throughout] Respiratory 15 18 Rate Respiratory Rate [Bilateral Throughout] Blood Pressure 102/66 134/61 O2 Sat by Pulse 97 98 Oximetry 04/21/18 04/21/18 04/21/18 13:01 14:00 15:00 Temperature Pulse Rate 87 89 84 Pulse Rate [ Bilateral Throughout] Respiratory 16 19 17 Rate Respiratory Rate [Bilateral Throughout] Blood Pressure 87/36 111/48 114/45 O2 Sat by Pulse 99 99 100 Oximetry 04/21/18 04/21/18 16:01 17:01 Temperature Pulse Rate 88 101 H Pulse Rate [ Bilateral Throughout] Respiratory 18 24 Rate Respiratory Rate [Bilateral Throughout] Blood Pressure 126/57 128/61 O2 Sat by Pulse 100 100 Oximetry Constitutional: appears uncomfortable, other (elderly looking morbidly obese CF, normocephalic and atraumatic with mildly increased resp effort at rest) Eyes: non-icteric ENT: oropharynx moist, other (Mallampati 4) Neck: supple, no lymphadenopathy, no JVD, other (no thyromegaly) Effort: mildly labored Ascultation: Bilateral: diminished breath sounds, rhonchi Percussion: Bilateral: not dull Cardiovascular: irregular rhythm Gastrointestinal: normoactive bowel sounds, soft, non-tender, non-distended, other (No HSM) Integumentary: rash Extremities: no cyanosis, pink and warm, pulses normal, no ischemia or petechiae, edema (1+) Neurologic: non-focal exam (grossly), pupils equal and round, CN II-XII normal, motor strength normal and Psychiatric: mood appropriate, affect normal CBC and BMP: 04/22/18 05:30 04/20/18 05:08 ABG, PT/INR, D-dimer: ABG POC ABG pH 7.322 (7.35-7.45) L 04/20/18 17:27 POC ABG pCO2 33.3 (35-45) L 04/20/18 17:27 POC ABG pO2 104 (80-105) 04/20/18 17:27 POC ABG HCO3 17.2 04/20/18 17:27 POC ABG Total CO2 18 04/20/18 17:27 POC ABG O2 Sat 98 04/20/18 17:27 PT/INR, D-dimer PT 15.2 Sec. (12.2-14.9) H 04/18/18 21:02 INR 1.13 (0.87-1.13) 04/18/18 21:02 D-Dimer 519.87 ng/mlDDU (0-234) H 04/18/18 16:57 Abnormal lab findings: Abnormal Labs 04/18/18 04/18/18 04/18/18 10:08 10:08 16:57 RBC Hgb Hct MCH 26 L RDW 17.6 H Lymph % (Auto) 4.8 L [place] % (Auto) 8.5 H Lymph # 0.5 L [place] # Seg Neutrophils % 84.9 H Seg Neutrophils # 8.4 H PT D-Dimer 519.87 H Heparin Anti-Xa Level POC ABG pH POC ABG pCO2 Sodium 134 L Carbon Dioxide 20 L BUN 21 H Glucose 138 H Calcium C-Reactive Protein Total Protein Albumin 3.8 L Ur Specific [place] 04/18/18 04/18/18 04/18/18 21:02 22:47 23:12 RBC Hgb 9.7 L Hct MCH RDW Lymph % (Auto) [place] % (Auto) Lymph # [place] # Seg Neutrophils % Seg Neutrophils # PT 15.2 H D-Dimer Heparin Anti-Xa Level POC ABG pH POC ABG pCO2 Sodium Carbon Dioxide BUN Glucose Calcium C-Reactive Protein Total Protein Albumin Ur Specific [place] 1.054 H 04/19/18 04/19/18 04/19/18 03:53 03:53 03:53 RBC Hgb Hct MCH 26 L RDW 18.1 H Lymph % (Auto) 12.1 L [place] % (Auto) 12.7 H Lymph # [place] # 1.4 H Seg Neutrophils % 74.3 H Seg Neutrophils # 8.1 H PT D-Dimer Heparin Anti-Xa Level 0.74 H POC ABG pH POC ABG pCO2 Sodium 134 L Carbon Dioxide 17 L BUN Glucose 162 H Calcium 7.3 L D C-Reactive Protein Total Protein Albumin Ur Specific [place] 04/20/18 04/20/18 04/20/18 05:08 05:08 17:27 RBC 3.36 L Hgb 8.6 L Hct 26.5 L MCH 26 L RDW 17.8 H Lymph % (Auto) [place] % (Auto) Lymph # [place] # Seg Neutrophils % Seg Neutrophils # PT D-Dimer Heparin Anti-Xa Level POC ABG pH 7.322 L POC ABG pCO2 33.3 L Sodium 134 L Carbon Dioxide 20 L BUN Glucose 114 H Calcium 7.6 L C-Reactive Protein Total Protein 5.7 L Albumin 3.2 L Ur Specific [place] 04/20/18 04/21/18 18:45 08:15 RBC Hgb Hct MCH RDW Lymph % (Auto) [place] % (Auto) Lymph # [place] # Seg Neutrophils % Seg Neutrophils # PT D-Dimer Heparin Anti-Xa Level 0.26 L POC ABG pH POC ABG pCO2 Sodium Carbon Dioxide BUN Glucose Calcium C-Reactive Protein 16.50 H Total Protein Albumin Ur Specific [place] Chest x-ray: image reviewed (post-op findings with reduced left lung volume and LLL scarring / infiltrate) Allied health notes reviewed: nursing
[2018-04-21] MEDS ORDERED: CORDARONE 150 MG in D5W 97 ML IV ONE (22:15)
[2018-04-22] MEDS: HEPARIN/ 0.45% NACL-25,000 UNIT/500 ML 25,000 UNIT/500 ML BAG IV SCH (01:04)
[2018-04-22] MEDS: VANCOMYCIN/NS 1 GM/250 ML 1 GM/250 ML BAG IV SCH (01:08)
[2018-04-22] MEDS: ATIVAN IV PRN (05:44)
[2018-04-22 05:47] LABS: Hematocrit 26.4 % (30.3-42.9); Hemoglobin 8.5 gm/dl (10.1-14.3)
[2018-04-22] MEDS: CORDARONE 900 MG in D5W 482 ML IV SCH ×2 (06:50→20:38)
[2018-04-22] MEDS: PROVENTIL IH PRN (07:57)
[2018-04-22] MEDS: WELLBUTRIN SR PO SCH ×2 (09:41→22:39)
[2018-04-22] MEDS: celeXA PO SCH (09:41)
[2018-04-22] MEDS: ZITHROMAX 500 MG in NACL 0.9% 250ML 250 ML IV SCH (09:42)
[2018-04-22] MEDS: SODIUM CHLORIDE FLUSH SYRINGE 10 ML IV SCH (09:42)
[2018-04-22] MEDS: PERCOCET 5/325 PO PRN ×3 (09:55→22:40)
[2018-04-22] MEDS ORDERED: TOPROL XL PO SCH (10:00)
[2018-04-22] MEDS: ROCEPHIN/NS 2 GM/100 ML 2 GM/100 ML BAG IV SCH (11:27)
[2018-04-22] MEDS: PEPCID PO SCH ×2 (13:03→22:39)
--- NOTE | 2018-04-22 14:35 | Progress Note ---
Assessment and Plan Pt converted to AFib with RVR this AM. IV amio resumed. Cont IV amio and increase lopressor to 50mg BID. Convert heparin gtt to Eliquis 5mg BID. The patient has been seen in conjunction with Dr. Wick who agrees with the assessment and plan of care. - Patient Problems (1) Atrial flutter with rapid ventricular response Current Visit: Yes Status: Acute (2) Pulmonary infiltrate Current Visit: Yes Status: Acute (3) Hypotension Current Visit: Yes Status: Acute (4) CAD (coronary artery disease) Current Visit: Yes Status: Chronic (5) Stented coronary artery Current Visit: Yes Status: Chronic (6) Leg wound, left Current Visit: Yes Status: Acute (7) Morbid obesity Current Visit: Yes Status: Chronic (8) Sleep apnea Current Visit: Yes Status: Chronic (9) Anemia Current Visit: Yes Status: Acute Subjective Date of service: 04/22/18 Principal diagnosis: AFlutter Interval history: pt resting in bed, developed AFib with RVR this AM, states she is not feeling very well. on amio gtt. Objective Last Vital Signs Temp 97.9 F 04/22/18 12:00 Pulse 117 H 04/22/18 14:01 Resp 22 04/22/18 14:01 BP 115/83 04/22/18 14:01 Pulse Ox 99 04/22/18 14:01 - Physical Examination General: No Apparent Distress HEENT: Positive: PERRL, Normocephaly, Mucus Membranes Moist Neck: Positive: neck supple, trachea midline Cardiac: Positive: irregularly irregular, S1/S2, Tachycardia Lungs: Positive: Decreased Breath Sounds Neuro: Positive: Grossly Intact Abdomen: Positive: Soft. Negative: Tender Skin: Negative: Rash, Wound Musculoskeletal: No Pain Extremities: Absent: edema - Labs and Meds CBC 04/22/18 Range/Units 05:30 Hgb 8.5 L (10.1-14.3) gm/dl Hct 26.4 L (30.3-42.9) % Plt Count 331 (140-440) K/mm3 - Imaging and Cardiology EKG: report reviewed, image reviewed Echo: report reviewed (03/2018: EF 50-55%. 08/2017: EF 55-60%) - Telemetry EKG Rhythm: Atrial Fibrillation
--- NOTE | 2018-04-22 14:52 | Progress Note ---
Assessment and Plan Assessment and plan: 63 YO Female with MO,Obesity Hypoventilation on CPAP, CAD S/P Stent Placement, HTN presents to ED for evaluation. Pt states that she has experienced shortness of breath, chest palpitations, and chest discomfort over the past 2 days with worsening symptoms over the same time frame. Pt seen and evaluated by her PCP and was initially treated with oral antibiotic therapy without relief of symptoms that were suspected secondary to a respiratory tract infection. Pt subsequently presents to ED for evaluation. Pt seen and evaluated in ED and found to have Atrial Flutter with RVR, Acute Respiratory Failure, as well as Left Leg Cellulitis. Pt treated with medical cardioversion with cardizem without improvement. Cardiology consulted in ED. Pt then placed on amidarone drip and heparin drip as per cardiology request. Pt declined synchronized cardioversion. Pt admitted to ICU. Pt denies fever, chills, NVD, Trauma, BRBPR, Hemoptysis, or recent ill contacts. * On admission the patient was placed in the intensive care unit started on amiodarone drip and also pressor. * She subsequently converted to sinus rhythm and Lopressor was initiated following blood pressure improvement and pressor being discontinued * Cardiology also converted from heparin drip to eliquis 5mg twice a day * Imaging studies demonstrated multifocal infiltrate as noted and Patient was treated in accordance Acute Respiratory failure with multifocal pneumonia Sepsis- POA. On review of record patient had low grade fever on admission. CXR also shows mutifocality of infiltrate Atrial flutter with RVR Shock STATE. Bronchiectasis Sleep apnea Anemia CAD with hx of PCI Left lower ext wound with resolving cellulites- wound culture showing MRSA Obesity Hypoventilation Syndrome Morbid obesity Depression Plan Review of xray shows Multifocal pneumonia Doubt septic shock. Low bp Likely from aflutter Continue abx, Continue Vancomycin for wound culture noted to have MRSA. Patient intolerant to bactrim. Can be dicharged on Doxyclin and have outpatient ID eval Surgical input noted Continue amiodarone drip and adjust with inclusion on Toprol xl when off pressors. DVT/GI prophy Plan discussed with patient and spouse. The high probability of a clinically significant, sudden or life threatening deterioration of the [cardiac,renal, respiratory] system(s) required my full and direct attention, intervention and personal management. The aggregate critical care time was [35] minutes. This time is in addition to time spent performing reported procedures but includes the following: [x] Data Review and interpretation [x] Patient assessment and monitoring of vital signs [x] Documentation [x] Medication orders and management History Interval history: Patient seen and examined, reports improvement With noted shortness but improving. No chest pain at this time and no dizziness. No other other adverse event reported by nursing staff. Hospitalist Physical - Physical exam Narrative exam: VITAL SIGNS: Reviewed. GENERAL: The patient appeared well nourished and normally developed. OBESE. Vital signs as documented. HEAD: No signs of head trauma. EYES: Pupils are equal. Extraocular motions intact. EARS: Hearing grossly intact. MOUTH: Oropharynx is normal. NECK: No adenopathy, no JVD. CHEST: Chest with clear breath sounds bilaterally. No wheezes, rales, or rhonchi. CARDIAC: Regular rate and rhythm. S1 and S2, without murmurs, gallops, or rubs. VASCULAR: No Edema. Peripheral pulses normal and equal in all extremities. ABDOMEN: Soft, without detectable tenderness. No sign of distention. No rebound or guarding, and no masses palpated. Bowel Sounds normal. MUSCULOSKELETAL: Good range of motion of all major joints. Extremities without clubbing, cyanosis or edema. NEUROLOGIC EXAM: Alert and oriented x 3. No focal sensory or strength deficits. Speech normal. Follows commands. PSYCHIATRIC: Mood normal. SKIN: Right neck line. Left lower ext wound-see wound care documentation. LLE wound healing well. L lateral calf wound appears healed. L medial calf wound w ith pink base. Periwound tissue unremarkable. No drainage. No odor. Some dry dressing in place - Constitutional Vitals: Temp Pulse Resp BP Pulse Ox 97.9 F 117 H 22 115/83 99 04/22/18 12:00 04/22/18 14:01 04/22/18 14:01 04/22/18 14:01 04/22/18 14:01 General appearance: Present: mild distress, obese Results - Labs CBC & Chem 7: 04/22/18 05:30 04/20/18 05:08 Labs: Laboratory Last Values WBC 6.7 K/mm3 (4.5-11.0) 04/20/18 05:08 RBC 3.36 M/mm3 (3.65-5.03) L 04/20/18 05:08 Hgb 8.5 gm/dl (10.1-14.3) L 04/22/18 05:30 Hct 26.4 % (30.3-42.9) L 04/22/18 05:30 MCV 79 fl (79-97) 04/20/18 05:08 MCH 26 pg (28-32) L 04/20/18 05:08 MCHC 33 % (30-34) 04/20/18 05:08 RDW 17.8 % (13.2-15.2) H 04/20/18 05:08 Plt Count 331 K/mm3 (140-440) 04/22/18 05:30 Lymph % (Auto) 12.1 % (13.4-35.0) L 04/19/18 03:53 [place] % (Auto) 12.7 % (0.0-7.3) H 04/19/18 03:53 Eos % (Auto) 0.6 % (0.0-4.3) 04/19/18 03:53 Baso % (Auto) 0.3 % (0.0-1.8) 04/19/18 03:53 Lymph # 1.3 K/mm3 (1.2-5.4) 04/19/18 03:53 [place] # 1.4 K/mm3 (0.0-0.8) H 04/19/18 03:53 Eos # 0.1 K/mm3 (0.0-0.4) 04/19/18 03:53 Baso # 0.0 K/mm3 (0.0-0.1) 04/19/18 03:53 Seg Neutrophils % 74.3 % (40.0-70.0) H 04/19/18 03:53 Seg Neutrophils # 8.1 K/mm3 (1.8-7.7) H 04/19/18 03:53 PT 15.2 Sec. (12.2-14.9) H 04/18/18 21:02 INR 1.13 (0.87-1.13) 04/18/18 21:02 APTT 29.2 Sec. (24.2-36.6) 04/18/18 21:02 D-Dimer 519.87 ng/mlDDU (0-234) H 04/18/18 16:57 Heparin Anti-Xa Level 0.56 U.I./ml (0.3-0.7) 04/22/18 01:15 POC ABG pH 7.322 (7.35-7.45) L 04/20/18 17:27 POC ABG pCO2 33.3 (35-45) L 04/20/18 17:27 POC ABG pO2 104 (80-105) 04/20/18 17:27 POC ABG HCO3 17.2 04/20/18 17:27 POC ABG Total CO2 18 04/20/18 17:27 POC ABG O2 Sat 98 04/20/18 17:27 POC ABG Base Excess -9 04/20/18 17:27 VBG pH 7.359 (7.320-7.420) 04/18/18 17:35 FiO2 28 % 04/20/18 17:27 Sodium 134 mmol/L (137-145) L 04/20/18 05:08 Potassium 4.1 mmol/L (3.6-5.0) 04/20/18 05:08 Chloride 104.3 mmol/L (98-107) 04/20/18 05:08 Carbon Dioxide 20 mmol/L (22-30) L 04/20/18 05:08 Anion Gap 14 mmol/L 04/20/18 05:08 BUN 13 mg/dL (7-17) 04/20/18 05:08 Creatinine 0.8 mg/dL (0.7-1.2) 04/20/18 05:08 Estimated GFR > 60 ml/min 04/20/18 05:08 BUN/Creatinine Ratio 16 % 04/20/18 05:08 Glucose 114 mg/dL (65-100) H 04/20/18 05:08 Lactic Acid 1.10 mmol/L (0.7-2.0) 04/18/18 17:35 Calcium 7.6 mg/dL (8.4-10.2) L 04/20/18 05:08 Magnesium 1.90 mg/dL (1.7-2.3) 04/18/18 17:20 Total Bilirubin 0.30 mg/dL (0.1-1.2) 04/20/18 05:08 AST 20 units/L (5-40) 04/20/18 05:08 ALT 18 units/L (7-56) 04/20/18 05:08 Alkaline Phosphatase 77 units/L (35-129) 04/20/18 05:08 Troponin T < 0.010 ng/mL (0.00-0.029) 04/18/18 15:52 C-Reactive Protein 16.50 mg/dL (0.00-1.30) H 04/20/18 18:45 Total Protein 5.7 g/dL (6.3-8.2) L 04/20/18 05:08 Albumin 3.2 g/dL (3.9-5) L 04/20/18 05:08 Albumin/Globulin Ratio 1.3 % 04/20/18 05:08 TSH 0.892 mlU/mL (0.270-4.200) 04/18/18 16:57 Free T4 0.99 ng/dL (0.76-1.46) 04/18/18 16:57 Urine Color Yellow (Yellow) 04/18/18 22:47 Urine Turbidity Clear (Clear) 04/18/18 22:47 Urine pH 5.0 (5.0-7.0) 04/18/18 22:47 Ur Specific [place] 1.054 (1.003-1.030) H 04/18/18 22:47 Urine Protein <15 mg/dl mg/dL (Negative) 04/18/18 22:47 Urine Glucose (UA) Neg mg/dL (Negative) 04/18/18 22:47 Urine Ketones Neg mg/dL (Negative) 04/18/18 22:47 Urine Blood Neg (Negative) 04/18/18 22:47 Urine Nitrite Neg (Negative) 04/18/18 22:47 Urine Bilirubin Neg (Negative) 04/18/18 22:47 Urine Urobilinogen < 2.0 mg/dL (<2.0) 04/18/18 22:47 Ur Leukocyte Esterase Neg (Negative) 04/18/18 22:47 Urine WBC (Auto) < 1.0 /HPF (0.0-6.0) 04/18/18 22:47 Urine RBC (Auto) 6.0 /HPF (0.0-6.0) 04/18/18 22:47 U Epithel Cells (Auto) < 1.0 /HPF (0-13.0) 04/18/18 22:47 Urine Mucus Few /HPF 04/18/18 22:47
--- NOTE | 2018-04-22 15:01 | Progress Note ---
Assessment and Plan Acute hypoxemic respiratory failure. Sepsis Syndrome Atrial fibrillation with rapid ventricular response, new onset. Obesity. Obesity hypoventilation syndrome, plus or minus obstructive sleep apnea. History of coronary artery disease. Hypotension Anemia that is normocytic. Elevated D-dimer. Mild hyponatremia. Mild metabolic acidosis. Left lower extremity wound. - continue supplemental oxygen to keep sats > 90% - continue to wean Levophed as long as MAP > 65 mmHg - continue BIPAP qhs - repeat CXR in am - continue bronchodilators with pulmonary hygiene per RT - continue empiric CAP AB's - continue amiodarone for rate control - cardiology evaluation ongoing - continue glycemic control with SSI for target BG 140-180 mg/dl acutely - tobacco abstinence counseled - weight loss counseled - continue full antocoagulation for A-fib - transition to NOAC per cardiology - negative VTE w/up - GI prophylaxis - aspiration precautions - PT/OT - wound care per WCT - mobility protocol for pressure ulcer prophylaxis - continue other care per attending /other consultants .... care plan discussed with patient and family in room ....re-evaluate in am & prn The high probability of a clinically significant, sudden or life threatening deterioration of the [cardiac,renal, respiratory] system(s) required my full and direct attention, intervention and personal management. The aggregate critical care time was [35] minutes. This time is in addition to time spent performing reported procedures but includes the following: [x] Data Review and interpretation [x] Patient assessment and monitoring of vital signs [x] Documentation [x] Medication orders and management Subjective Date of service: 04/22/18 Principal diagnosis: Acute hypoxemic resp failure; AFib with RVR; Obesity; FRANKY/OHS; CAD. Interval history: Patient is seen today for: Acute hypoxemic respiratory failure; Atrial fibrillation with rapid ventricular response, new onset; Obesity; Obesity hypoventilation syndrome, plus or minus obstructive sleep apnea; History of coronary artery disease. Seen and examined at bedside; 24hour events reviewed; nursing and respiratory care staff consulted; no adverse overnight events reported to me; resting peacefully in bed; no N/V/F/C Objective Vital Signs - 12hr 04/22/18 04/22/18 04/22/18 04:00 05:00 06:01 Temperature 98.9 F Pulse Rate 91 H 115 H 137 H Pulse Rate [ Bilateral Throughout] Pulse Rate [ From Monitor] Respiratory 18 20 23 Rate Respiratory Rate [Bilateral Throughout] Blood Pressure 124/52 104/66 120/75 O2 Sat by Pulse 95 96 97 Oximetry 04/22/18 04/22/18 04/22/18 07:01 07:56 07:58 Temperature Pulse Rate 116 H Pulse Rate [ 124 H Bilateral Throughout] Pulse Rate [ From Monitor] Respiratory 21 Rate Respiratory 22 Rate [Bilateral Throughout] Blood Pressure 138/81 O2 Sat by Pulse 98 99 Oximetry 04/22/18 04/22/18 04/22/18 08:00 08:07 09:01 Temperature 96.8 F L Pulse Rate 119 H 124 H Pulse Rate [ 121 H Bilateral Throughout] Pulse Rate [ 134 H From Monitor] Respiratory 19 20 Rate Respiratory 20 Rate [Bilateral Throughout] Blood Pressure 136/66 128/89 O2 Sat by Pulse 100 99 Oximetry 04/22/18 04/22/18 04/22/18 09:45 09:55 10:00 Temperature Pulse Rate 145 H 140 H Pulse Rate [ Bilateral Throughout] Pulse Rate [ From Monitor] Respiratory 13 Rate Respiratory Rate [Bilateral Throughout] Blood Pressure 146/89 O2 Sat by Pulse Oximetry 04/22/18 04/22/18 04/22/18 10:01 11:01 12:00 Temperature 97.9 F Pulse Rate 129 H 138 H Pulse Rate [ Bilateral Throughout] Pulse Rate [ From Monitor] Respiratory 23 17 Rate Respiratory Rate [Bilateral Throughout] Blood Pressure 136/67 114/76 O2 Sat by Pulse 97 97 Oximetry 04/22/18 04/22/18 04/22/18 12:01 13:00 14:01 Temperature Pulse Rate 96 H 130 H 117 H Pulse Rate [ Bilateral Throughout] Pulse Rate [ From Monitor] Respiratory 20 22 22 Rate Respiratory Rate [Bilateral Throughout] Blood Pressure 100/48 107/68 115/83 O2 Sat by Pulse 98 98 99 Oximetry Constitutional: appears uncomfortable, other (elderly looking morbidly obese CF, normocephalic and atraumatic with mildly increased resp effort at rest) Eyes: non-icteric ENT: oropharynx moist, other (Mallampati 4) Neck: supple, no lymphadenopathy, no JVD, other (no thyromegaly) Effort: mildly labored Ascultation: Bilateral: diminished breath sounds, rhonchi Percussion: Bilateral: not dull Cardiovascular: irregular rhythm Gastrointestinal: normoactive bowel sounds, soft, non-tender, non-distended, other (No HSM) Integumentary: rash Extremities: no cyanosis, pink and warm, pulses normal, no ischemia or petechiae, edema (1+) Neurologic: non-focal exam (grossly), pupils equal and round, CN II-XII normal, motor strength normal and Psychiatric: mood appropriate, affect normal CBC and BMP: 04/24/18 04:55 04/24/18 04:55 ABG, PT/INR, D-dimer: ABG POC ABG pH 7.322 (7.35-7.45) L 04/20/18 17:27 POC ABG pCO2 33.3 (35-45) L 04/20/18 17:27 POC ABG pO2 104 (80-105) 04/20/18 17:27 POC ABG HCO3 17.2 04/20/18 17:27 POC ABG Total CO2 18 04/20/18 17:27 POC ABG O2 Sat 98 04/20/18 17:27 PT/INR, D-dimer PT 15.2 Sec. (12.2-14.9) H 04/18/18 21:02 INR 1.13 (0.87-1.13) 04/18/18 21:02 D-Dimer 519.87 ng/mlDDU (0-234) H 04/18/18 16:57 Abnormal lab findings: Abnormal Labs 04/18/18 04/18/18 04/18/18 10:08 10:08 16:57 RBC Hgb Hct MCH 26 L RDW 17.6 H Lymph % (Auto) 4.8 L [place] % (Auto) 8.5 H Lymph # 0.5 L [place] # Seg Neutrophils % 84.9 H Seg Neutrophils # 8.4 H PT D-Dimer 519.87 H Heparin Anti-Xa Level POC ABG pH POC ABG pCO2 Sodium 134 L Carbon Dioxide 20 L BUN 21 H Glucose 138 H Calcium C-Reactive Protein Total Protein Albumin 3.8 L Ur Specific [place] 04/18/18 04/18/18 04/18/18 21:02 22:47 23:12 RBC Hgb 9.7 L Hct MCH RDW Lymph % (Auto) [place] % (Auto) Lymph # [place] # Seg Neutrophils % Seg Neutrophils # PT 15.2 H D-Dimer Heparin Anti-Xa Level POC ABG pH POC ABG pCO2 Sodium Carbon Dioxide BUN Glucose Calcium C-Reactive Protein Total Protein Albumin Ur Specific [place] 1.054 H 04/19/18 04/19/18 04/19/18 03:53 03:53 03:53 RBC Hgb Hct MCH 26 L RDW 18.1 H Lymph % (Auto) 12.1 L [place] % (Auto) 12.7 H Lymph # [place] # 1.4 H Seg Neutrophils % 74.3 H Seg Neutrophils # 8.1 H PT D-Dimer Heparin Anti-Xa Level 0.74 H POC ABG pH POC ABG pCO2 Sodium 134 L Carbon Dioxide 17 L BUN Glucose 162 H Calcium 7.3 L D C-Reactive Protein Total Protein Albumin Ur Specific [place] 04/20/18 04/20/18 04/20/18 05:08 05:08 17:27 RBC 3.36 L Hgb 8.6 L Hct 26.5 L MCH 26 L RDW 17.8 H Lymph % (Auto) [place] % (Auto) Lymph # [place] # Seg Neutrophils % Seg Neutrophils # PT D-Dimer Heparin Anti-Xa Level POC ABG pH 7.322 L POC ABG pCO2 33.3 L Sodium 134 L Carbon Dioxide 20 L BUN Glucose 114 H Calcium 7.6 L C-Reactive Protein Total Protein 5.7 L Albumin 3.2 L Ur Specific [place] 04/20/18 04/21/18 04/21/18 18:45 08:15 17:25 RBC Hgb Hct MCH RDW Lymph % (Auto) [place] % (Auto) Lymph # [place] # Seg Neutrophils % Seg Neutrophils # PT D-Dimer Heparin Anti-Xa Level 0.26 L 0.21 L POC ABG pH POC ABG pCO2 Sodium Carbon Dioxide BUN Glucose Calcium C-Reactive Protein 16.50 H Total Protein Albumin Ur Specific [place] 04/22/18 05:30 RBC Hgb 8.5 L Hct 26.4 L MCH RDW Lymph % (Auto) [place] % (Auto) Lymph # [place] # Seg Neutrophils % Seg Neutrophils # PT D-Dimer Heparin Anti-Xa Level POC ABG pH POC ABG pCO2 Sodium Carbon Dioxide BUN Glucose Calcium C-Reactive Protein Total Protein Albumin Ur Specific [place] Allied health notes reviewed: nursing
[2018-04-22] MEDS: ELIQUIS PO SCH (22:39)
[2018-04-22] MEDS: LOPRESSOR PO SCH (22:41)
[2018-04-23] MEDS: PROVENTIL IH PRN ×2 (07:22→13:41)
--- NOTE | 2018-04-23 09:56 | Progress Note ---
Assessment and Plan Acute hypoxemic respiratory failure. Sepsis Atrial fibrillation with rapid ventricular response, new onset. Obesity. Obesity hypoventilation syndrome, plus obstructive sleep apnea. History of coronary artery disease. Anemia that is normocytic. Elevated D-dimer. Mild hyponatremia. Mild metabolic acidosis. Left lower extremity wound. -Continue supplemental oxygen to keep O2 sats 88-90% -Nocturnal BIPAP and prn during the day when asleep - prn ABG and CXR - continue bronchodilators with pulmonary hygiene per RT - continue empiric CAP antibiotics to complete course - continue amiodarone for rate control - continue glycemic control with SSI for target BG 140-180 mg/dl - weight loss counseled - continue full anticoagulation for A-fib - negative VTE w/up - aspiration precautions - PT/OT, increase activity - wound care per WCT for left lower extremity wound - continue other care per attending /other consultants -discharge planning Subjective Date of service: 04/23/18 Principal diagnosis: Acute hypoxemic resp failure; AFib with RVR; Obesity; FRANKY/OHS; CAD. Interval history: Patient is seen today for: Acute hypoxemic respiratory failure; Atrial fibrillation with rapid ventricular response, new onset; Obesity; Obesity hypoventilation syndrome, plus or minus obstructive sleep apnea; History of coronary artery disease. Seen and examined at bedside; 24hour events reviewed; nursing and respiratory care staff consulted; no adverse overnight events reported to me; resting peacefully in bed; no cough, no chest pain, no fevers, or chills. No nausea or vomiting. States she has a diagnosis of sleep apnea and uses a CPAP machine at home Objective Vital Signs - 12hr 04/22/18 04/22/18 04/22/18 22:00 22:01 22:41 Temperature Pulse Rate 66 67 69 Pulse Rate [ Anterior Bilateral Throughout] Pulse Rate [ Bilateral Throughout] Pulse Rate [ From Monitor] Respiratory 22 Rate Respiratory Rate [Anterior Bilateral Throughout] Respiratory Rate [Bilateral Throughout] Blood Pressure 134/73 139/76 O2 Sat by Pulse 98 Oximetry 04/22/18 04/22/18 04/22/18 23:00 23:11 23:40 Temperature 99 F Pulse Rate 66 66 Pulse Rate [ Anterior Bilateral Throughout] Pulse Rate [ Bilateral Throughout] Pulse Rate [ From Monitor] Respiratory 20 21 Rate Respiratory Rate [Anterior Bilateral Throughout] Respiratory Rate [Bilateral Throughout] Blood Pressure 125/73 125/73 O2 Sat by Pulse 99 99 Oximetry 04/23/18 04/23/18 04/23/18 00:00 00:01 00:30 Temperature Pulse Rate 61 64 Pulse Rate [ Anterior Bilateral Throughout] Pulse Rate [ Bilateral Throughout] Pulse Rate [ 68 From Monitor] Respiratory 18 10 L 19 Rate Respiratory Rate [Anterior Bilateral Throughout] Respiratory Rate [Bilateral Throughout] Blood Pressure 125/65 O2 Sat by Pulse 98 97 Oximetry 04/23/18 04/23/18 04/23/18 00:39 00:40 03:15 Temperature 98.2 F Pulse Rate 64 63 85 Pulse Rate [ Anterior Bilateral Throughout] Pulse Rate [ Bilateral Throughout] Pulse Rate [ From Monitor] Respiratory 22 Rate Respiratory Rate [Anterior Bilateral Throughout] Respiratory Rate [Bilateral Throughout] Blood Pressure O2 Sat by Pulse 98 94 Oximetry 04/23/18 04/23/18 04/23/18 03:19 07:20 07:26 Temperature 97.7 F 98.3 F Pulse Rate 58 L 64 Pulse Rate [ Anterior Bilateral Throughout] Pulse Rate [ Bilateral Throughout] Pulse Rate [ From Monitor] Respiratory 17 22 Rate Respiratory Rate [Anterior Bilateral Throughout] Respiratory Rate [Bilateral Throughout] Blood Pressure 116/70 136/66 O2 Sat by Pulse 96 98 98 Oximetry 04/23/18 07:27 Temperature Pulse Rate Pulse Rate [ 64 Anterior Bilateral Throughout] Pulse Rate [ 64 Bilateral Throughout] Pulse Rate [ From Monitor] Respiratory Rate Respiratory 18 Rate [Anterior Bilateral Throughout] Respiratory 18 Rate [Bilateral Throughout] Blood Pressure O2 Sat by Pulse Oximetry Constitutional: appears uncomfortable, other (elderly looking morbidly obese CF, normocephalic and atraumatic with mildly increased resp effort at rest) Eyes: non-icteric ENT: oropharynx moist, other (Mallampati 4) Neck: supple, no lymphadenopathy, no JVD, other (no thyromegaly) Effort: mildly labored Ascultation: Bilateral: diminished breath sounds, rhonchi Percussion: Bilateral: not dull Cardiovascular: irregular rhythm Gastrointestinal: normoactive bowel sounds, soft, non-tender, non-distended, other (No HSM) Integumentary: rash Extremities: no cyanosis, pink and warm, pulses normal, no ischemia or petechiae, edema (1+) Neurologic: normal mental status, non-focal exam (grossly), pupils equal and round, CN II-XII normal, motor strength normal and Psychiatric: mood appropriate, affect normal CBC and BMP: 04/24/18 04:55 04/24/18 04:55 ABG, PT/INR, D-dimer: ABG POC ABG pH 7.322 (7.35-7.45) L 04/20/18 17:27 POC ABG pCO2 33.3 (35-45) L 04/20/18 17:27 POC ABG pO2 104 (80-105) 04/20/18 17:27 POC ABG HCO3 17.2 04/20/18 17:27 POC ABG Total CO2 18 04/20/18 17:27 POC ABG O2 Sat 98 04/20/18 17:27 PT/INR, D-dimer PT 15.2 Sec. (12.2-14.9) H 04/18/18 21:02 INR 1.13 (0.87-1.13) 04/18/18 21:02 D-Dimer 519.87 ng/mlDDU (0-234) H 04/18/18 16:57 Abnormal lab findings: Abnormal Labs 04/18/18 04/18/18 04/18/18 10:08 10:08 16:57 RBC Hgb Hct MCH 26 L RDW 17.6 H Lymph % (Auto) 4.8 L [place] % (Auto) 8.5 H Lymph # 0.5 L [place] # Seg Neutrophils % 84.9 H Seg Neutrophils # 8.4 H PT D-Dimer 519.87 H Heparin Anti-Xa Level POC ABG pH POC ABG pCO2 Sodium 134 L Carbon Dioxide 20 L BUN 21 H Glucose 138 H Calcium C-Reactive Protein Total Protein Albumin 3.8 L Ur Specific [place] 04/18/18 04/18/18 04/18/18 21:02 22:47 23:12 RBC Hgb 9.7 L Hct MCH RDW Lymph % (Auto) [place] % (Auto) Lymph # [place] # Seg Neutrophils % Seg Neutrophils # PT 15.2 H D-Dimer Heparin Anti-Xa Level POC ABG pH POC ABG pCO2 Sodium Carbon Dioxide BUN Glucose Calcium C-Reactive Protein Total Protein Albumin Ur Specific [place] 1.054 H 04/19/18 04/19/18 04/19/18 03:53 03:53 03:53 RBC Hgb Hct MCH 26 L RDW 18.1 H Lymph % (Auto) 12.1 L [place] % (Auto) 12.7 H Lymph # [place] # 1.4 H Seg Neutrophils % 74.3 H Seg Neutrophils # 8.1 H PT D-Dimer Heparin Anti-Xa Level 0.74 H POC ABG pH POC ABG pCO2 Sodium 134 L Carbon Dioxide 17 L BUN Glucose 162 H Calcium 7.3 L D C-Reactive Protein Total Protein Albumin Ur Specific [place] 04/20/18 04/20/18 04/20/18 05:08 05:08 17:27 RBC 3.36 L Hgb 8.6 L Hct 26.5 L MCH 26 L RDW 17.8 H Lymph % (Auto) [place] % (Auto) Lymph # [place] # Seg Neutrophils % Seg Neutrophils # PT D-Dimer Heparin Anti-Xa Level POC ABG pH 7.322 L POC ABG pCO2 33.3 L Sodium 134 L Carbon Dioxide 20 L BUN Glucose 114 H Calcium 7.6 L C-Reactive Protein Total Protein 5.7 L Albumin 3.2 L Ur Specific [place] 04/20/18 04/21/18 04/21/18 18:45 08:15 17:25 RBC Hgb Hct MCH RDW Lymph % (Auto) [place] % (Auto) Lymph # [place] # Seg Neutrophils % Seg Neutrophils # PT D-Dimer Heparin Anti-Xa Level 0.26 L 0.21 L POC ABG pH POC ABG pCO2 Sodium Carbon Dioxide BUN Glucose Calcium C-Reactive Protein 16.50 H Total Protein Albumin Ur Specific [place] 04/22/18 05:30 RBC Hgb 8.5 L Hct 26.4 L MCH RDW Lymph % (Auto) [place] % (Auto) Lymph # [place] # Seg Neutrophils % Seg Neutrophils # PT D-Dimer Heparin Anti-Xa Level POC ABG pH POC ABG pCO2 Sodium Carbon Dioxide BUN Glucose Calcium C-Reactive Protein Total Protein Albumin Ur Specific [place] Allied health notes reviewed: nursing
--- NOTE | 2018-04-23 10:52 | Progress Note ---
Assessment and Plan Pt converted to SR. IV amio resumed. D/c amio gtt and cont PO lopressor and Eliquis. The patient has been seen in conjunction with Dr. Wick who agrees with the assessment and plan of care. - Patient Problems (1) Atrial flutter with rapid ventricular response Current Visit: Yes Status: Acute (2) Pulmonary infiltrate Current Visit: Yes Status: Acute (3) Hypotension Current Visit: Yes Status: Acute (4) CAD (coronary artery disease) Current Visit: Yes Status: Chronic (5) Stented coronary artery Current Visit: Yes Status: Chronic (6) Leg wound, left Current Visit: Yes Status: Acute (7) Morbid obesity Current Visit: Yes Status: Chronic (8) Sleep apnea Current Visit: Yes Status: Chronic (9) Anemia Current Visit: Yes Status: Acute Subjective Date of service: 04/23/18 Principal diagnosis: Acute hypoxemic resp failure; AFib with RVR; Obesity; FRANKY/OHS; CAD. Interval history: pt resting in bed, converted to SR overnight. amio gtt infusing. Objective Last Vital Signs Temp 98.3 F 04/23/18 07:20 Pulse 64 04/23/18 07:27 Resp 18 04/23/18 07:27 BP 136/66 04/23/18 07:20 Pulse Ox 98 04/23/18 07:26 - Physical Examination General: No Apparent Distress HEENT: Positive: PERRL, Normocephaly, Mucus Membranes Moist Neck: Positive: neck supple, trachea midline Cardiac: Positive: Reg Rate and Rhythm, S1/S2 Lungs: Positive: Decreased Breath Sounds Neuro: Positive: Grossly Intact Abdomen: Positive: Soft. Negative: Tender Skin: Negative: Rash, Wound Musculoskeletal: No Pain Extremities: Absent: edema - Imaging and Cardiology EKG: report reviewed, image reviewed Echo: report reviewed (03/2018: EF 50-55%. 08/2017: EF 55-60%) - Allied health notes Allied health notes reviewed: nursing
[2018-04-23] MEDS: ELIQUIS PO SCH ×2 (11:36→21:35)
[2018-04-23] MEDS: LOPRESSOR PO SCH ×2 (11:36→21:35)
[2018-04-23] MEDS: PEPCID PO SCH ×2 (11:36→21:35)
[2018-04-23] MEDS: celeXA PO SCH (11:37)
[2018-04-23] MEDS: PERCOCET 5/325 PO PRN (11:37)
[2018-04-23] MEDS: ROCEPHIN/NS 2 GM/100 ML 2 GM/100 ML BAG IV SCH (12:00)
[2018-04-23] MEDS: ZITHROMAX 500 MG in NACL 0.9% 250ML 250 ML IV SCH (12:56)
[2018-04-23] MEDS: WELLBUTRIN SR PO SCH ×2 (12:57→21:36)
--- NOTE | 2018-04-23 13:20 | Progress Note ---
Assessment and Plan Assessment and plan: Patient is 63 YO Female with MO,Obesity Hypoventilation on CPAP, CAD S/P Stent Placement, HTN presents to ED for evaluation. Pt states that she has experienced shortness of breath, chest palpitations, and chest discomfort over the past 2 days with worsening symptoms over the same time frame. Pt seen and evaluated by her PCP and was initially treated with oral antibiotic therapy without relief of symptoms that were suspected secondary to a respiratory tract infection. Pt subsequently presents to ED for evaluation. Pt seen and evaluated in ED and found to have Atrial Flutter with RVR, Acute Respiratory Failure, as well as Left Leg Cellulitis. Pt treated with medical cardioversion with cardizem without improvement. Pt then placed on amidarone drip and heparin drip as per cardiology request. Pt declined synchronized cardioversion. * On admission the patient was placed in the intensive care unit started on amiodarone drip and also pressor. * She subsequently converted to sinus rhythm and Lopressor was initiated following blood pressure improvement and pressor being discontinued * Cardiology also converted from heparin drip to eliquis 5mg twice a day * Imaging studies demonstrated multifocal infiltrate as noted and Patient was treated in accordance Acute Respiratory failure with multifocal pneumonia Sepsis- POA. On review of record patient had low grade fever on admission. CXR also shows mutifocality of infiltrate Atrial flutter with RVR Shock STATE. Bronchiectasis Sleep apnea Anemia CAD with hx of PCI Left lower ext wound with resolving cellulites- wound culture showing MRSA Obesity Hypoventilation Syndrome Morbid obesity Depression Plan Review of xray shows Multifocal pneumonia Doubt septic shock. Low bp Likely from aflutter Continue abx, Continue Vancomycin for wound culture noted to have MRSA. Patient intolerant to bactrim. Can be discharged on Doxyclin Surgical input noted Continue amiodarone drip and adjust with inclusion on Toprol xl when off pressors. DVT/GI prophy Plan discussed with patient and family at bedside History Interval history: Shortness of breath, No more fever Hospitalist Physical - Physical exam Narrative exam: GEN: Not in acute distress, lying in bed, morbidly obese HEENT: Normocephalic, atraumatic, Neck: supple, No JVD Lungs: Decreased breath sounds bilaterally, crackles left base, no wheeze Heart:S1 and S2 regular, no murmurs, rubs or gallop, Abd:soft, non tender, non distended, normal bowel sounds Ext: No edema, no clubbing or cyanosis Neuro:Awake,alert,oriented x 3, moves all ext, no focal neurological signs - Constitutional Vitals: Temp Pulse Resp BP Pulse Ox 98.4 F 67 20 125/71 98 04/23/18 12:34 04/23/18 12:34 04/23/18 12:34 04/23/18 12:34 04/23/18 12:34 General appearance: Present: obese Results - Labs CBC & Chem 7: 04/24/18 04:55 04/24/18 04:55 Labs: Laboratory Last Values WBC 6.7 K/mm3 (4.5-11.0) 04/20/18 05:08 RBC 3.36 M/mm3 (3.65-5.03) L 04/20/18 05:08 Hgb 8.5 gm/dl (10.1-14.3) L 04/22/18 05:30 Hct 26.4 % (30.3-42.9) L 04/22/18 05:30 MCV 79 fl (79-97) 04/20/18 05:08 MCH 26 pg (28-32) L 04/20/18 05:08 MCHC 33 % (30-34) 04/20/18 05:08 RDW 17.8 % (13.2-15.2) H 04/20/18 05:08 Plt Count 331 K/mm3 (140-440) 04/22/18 05:30 Lymph % (Auto) 12.1 % (13.4-35.0) L 04/19/18 03:53 [place] % (Auto) 12.7 % (0.0-7.3) H 04/19/18 03:53 Eos % (Auto) 0.6 % (0.0-4.3) 04/19/18 03:53 Baso % (Auto) 0.3 % (0.0-1.8) 04/19/18 03:53 Lymph # 1.3 K/mm3 (1.2-5.4) 04/19/18 03:53 [place] # 1.4 K/mm3 (0.0-0.8) H 04/19/18 03:53 Eos # 0.1 K/mm3 (0.0-0.4) 04/19/18 03:53 Baso # 0.0 K/mm3 (0.0-0.1) 04/19/18 03:53 Seg Neutrophils % 74.3 % (40.0-70.0) H 04/19/18 03:53 Seg Neutrophils # 8.1 K/mm3 (1.8-7.7) H 04/19/18 03:53 PT 15.2 Sec. (12.2-14.9) H 04/18/18 21:02 INR 1.13 (0.87-1.13) 04/18/18 21:02 APTT 29.2 Sec. (24.2-36.6) 04/18/18 21:02 D-Dimer 519.87 ng/mlDDU (0-234) H 04/18/18 16:57 Heparin Anti-Xa Level 0.56 U.I./ml (0.3-0.7) 04/22/18 01:15 POC ABG pH 7.322 (7.35-7.45) L 04/20/18 17:27 POC ABG pCO2 33.3 (35-45) L 04/20/18 17:27 POC ABG pO2 104 (80-105) 04/20/18 17:27 POC ABG HCO3 17.2 04/20/18 17:27 POC ABG Total CO2 18 04/20/18 17:27 POC ABG O2 Sat 98 04/20/18 17:27 POC ABG Base Excess -9 04/20/18 17:27 VBG pH 7.359 (7.320-7.420) 04/18/18 17:35 FiO2 28 % 04/20/18 17:27 Sodium 134 mmol/L (137-145) L 04/20/18 05:08 Potassium 4.1 mmol/L (3.6-5.0) 04/20/18 05:08 Chloride 104.3 mmol/L (98-107) 04/20/18 05:08 Carbon Dioxide 20 mmol/L (22-30) L 04/20/18 05:08 Anion Gap 14 mmol/L 04/20/18 05:08 BUN 13 mg/dL (7-17) 04/20/18 05:08 Creatinine 0.8 mg/dL (0.7-1.2) 04/20/18 05:08 Estimated GFR > 60 ml/min 04/20/18 05:08 BUN/Creatinine Ratio 16 % 04/20/18 05:08 Glucose 114 mg/dL (65-100) H 04/20/18 05:08 Lactic Acid 1.10 mmol/L (0.7-2.0) 04/18/18 17:35 Calcium 7.6 mg/dL (8.4-10.2) L 04/20/18 05:08 Magnesium 1.90 mg/dL (1.7-2.3) 04/18/18 17:20 Total Bilirubin 0.30 mg/dL (0.1-1.2) 04/20/18 05:08 AST 20 units/L (5-40) 04/20/18 05:08 ALT 18 units/L (7-56) 04/20/18 05:08 Alkaline Phosphatase 77 units/L (35-129) 04/20/18 05:08 Troponin T < 0.010 ng/mL (0.00-0.029) 04/18/18 15:52 C-Reactive Protein 16.50 mg/dL (0.00-1.30) H 04/20/18 18:45 Total Protein 5.7 g/dL (6.3-8.2) L 04/20/18 05:08 Albumin 3.2 g/dL (3.9-5) L 04/20/18 05:08 Albumin/Globulin Ratio 1.3 % 04/20/18 05:08 TSH 0.892 mlU/mL (0.270-4.200) 04/18/18 16:57 Free T4 0.99 ng/dL (0.76-1.46) 04/18/18 16:57 Urine Color Yellow (Yellow) 04/18/18 22:47 Urine Turbidity Clear (Clear) 04/18/18 22:47 Urine pH 5.0 (5.0-7.0) 04/18/18 22:47 Ur Specific [place] 1.054 (1.003-1.030) H 04/18/18 22:47 Urine Protein <15 mg/dl mg/dL (Negative) 04/18/18 22:47 Urine Glucose (UA) Neg mg/dL (Negative) 04/18/18 22:47 Urine Ketones Neg mg/dL (Negative) 04/18/18 22:47 Urine Blood Neg (Negative) 04/18/18 22:47 Urine Nitrite Neg (Negative) 04/18/18 22:47 Urine Bilirubin Neg (Negative) 04/18/18 22:47 Urine Urobilinogen < 2.0 mg/dL (<2.0) 04/18/18 22:47 Ur Leukocyte Esterase Neg (Negative) 04/18/18 22:47 Urine WBC (Auto) < 1.0 /HPF (0.0-6.0) 04/18/18 22:47 Urine RBC (Auto) 6.0 /HPF (0.0-6.0) 04/18/18 22:47 U Epithel Cells (Auto) < 1.0 /HPF (0-13.0) 04/18/18 22:47 Urine Mucus Few /HPF 04/18/18 22:47
[2018-04-23] MEDS: SODIUM CHLORIDE FLUSH SYRINGE 10 ML IV SCH (21:35)
[2018-04-23] MEDS: ATIVAN IV PRN (21:56)
[2018-04-24 05:05] LABS: Hematocrit 26.5 % (30.3-42.9); Hemoglobin 8.5 gm/dl (10.1-14.3); Mean Corpuscular HGB Conc 32 % (30-34); Mean Corpuscular Volume 79 fl (79-97); Platelet Count 383 K/mm3 (140-440); Red Blood Count 3.35 M/mm3 (3.65-5.03); Red Cell Distribution Width 17.3 % (13.2-15.2)
[2018-04-24 05:23] LABS: BUN/Creatinine Ratio 15; Blood Urea Nitrogen 9 mg/dL (7-17); Calcium 8.7 mg/dL (8.4-10.2); Hemolysis Index 4
[2018-04-24] MEDS: PROVENTIL IH PRN (08:08)
[2018-04-24] MEDS: ELIQUIS PO SCH ×2 (10:10→21:53)
[2018-04-24] MEDS: LOPRESSOR PO SCH ×2 (10:11→21:53)
[2018-04-24] MEDS: PEPCID PO SCH ×2 (10:17→21:53)
[2018-04-24] MEDS: celeXA PO SCH (10:18)
[2018-04-24] MEDS: ROCEPHIN/NS 2 GM/100 ML 2 GM/100 ML BAG IV SCH (10:19)
[2018-04-24] MEDS: WELLBUTRIN SR PO SCH ×2 (10:20→21:53)
--- NOTE | 2018-04-24 10:21 | Progress Note ---
Assessment and Plan Assessment and plan: Patient is 63 YO Female with MO,Obesity Hypoventilation on CPAP, CAD S/P Stent Placement, HTN presents to ED for evaluation. Pt states that she has experienced shortness of breath, chest palpitations, and chest discomfort over the past 2 days with worsening symptoms over the same time frame. Pt seen and evaluated by her PCP and was initially treated with oral antibiotic therapy without relief of symptoms that were suspected secondary to a respiratory tract infection. Pt subsequently presents to ED for evaluation. Pt seen and evaluated in ED and found to have Atrial Flutter with RVR, Acute Respiratory Failure, as well as Left Leg Cellulitis. Pt treated with medical cardioversion with cardizem without improvement. Pt then placed on amidarone drip and heparin drip as per cardiology request. Pt declined synchronized cardioversion. * On admission the patient was placed in the intensive care unit started on amiodarone drip and also pressor. * She subsequently converted to sinus rhythm and Lopressor was initiated following blood pressure improvement and pressor being discontinued * Cardiology also converted from heparin drip to eliquis 5mg twice a day * Imaging studies demonstrated multifocal infiltrate as noted and Patient was treated in accordance Acute Respiratory failure due to multifocal pneumonia Sepsis- POA. On review of record patient had low grade fever on admission. CXR also shows mutifocal infiltrate Atrial flutter with RVR Shock STATE. Bronchiectasis Sleep apnea Anemia CAD with hx of PCI Left lower ext wound with resolving cellulites- wound culture showing MRSA Obesity Hypoventilation Syndrome Morbid obesity Depression Plan Review of xray shows Multifocal pneumonia Doubt septic shock. Low BP Likely from aflutter Continue Rocephin and Zithromax Surgical input noted On Metoprolol Off Amiodarone. DVT/GI prophy Plan discussed with patient History Interval history: Shortness of breath, No more fever Hospitalist Physical - Physical exam Narrative exam: GEN: Not in acute distress, lying in bed, morbidly obese HEENT: Normocephalic, atraumatic, Neck: supple, No JVD Lungs: Decreased breath sounds bilaterally, crackles left base, no wheeze Heart:S1 and S2 regular, no murmurs, rubs or gallop, Abd:soft, non tender, non distended, normal bowel sounds Ext: No edema, no clubbing or cyanosis Neuro:Awake,alert,oriented x 3, moves all ext, no focal neurological signs - Constitutional Vitals: Temp Pulse Resp BP Pulse Ox 98.3 F 64 20 121/44 99 04/24/18 08:37 04/24/18 08:37 04/24/18 08:37 04/24/18 08:37 04/24/18 09:19 General appearance: Present: obese Results - Labs CBC & Chem 7: 04/24/18 04:55 04/24/18 04:55 Labs: Laboratory Last Values WBC 7.5 K/mm3 (4.5-11.0) 04/24/18 04:55 RBC 3.35 M/mm3 (3.65-5.03) L 04/24/18 04:55 Hgb 8.5 gm/dl (10.1-14.3) L 04/24/18 04:55 Hct 26.5 % (30.3-42.9) L 04/24/18 04:55 MCV 79 fl (79-97) 04/24/18 04:55 MCH 26 pg (28-32) L 04/24/18 04:55 MCHC 32 % (30-34) 04/24/18 04:55 RDW 17.3 % (13.2-15.2) H 04/24/18 04:55 Plt Count 383 K/mm3 (140-440) 04/24/18 04:55 Lymph % (Auto) 12.1 % (13.4-35.0) L 04/19/18 03:53 [place] % (Auto) 12.7 % (0.0-7.3) H 04/19/18 03:53 Eos % (Auto) 0.6 % (0.0-4.3) 04/19/18 03:53 Baso % (Auto) 0.3 % (0.0-1.8) 04/19/18 03:53 Lymph # 1.3 K/mm3 (1.2-5.4) 04/19/18 03:53 [place] # 1.4 K/mm3 (0.0-0.8) H 04/19/18 03:53 Eos # 0.1 K/mm3 (0.0-0.4) 04/19/18 03:53 Baso # 0.0 K/mm3 (0.0-0.1) 04/19/18 03:53 Seg Neutrophils % 74.3 % (40.0-70.0) H 04/19/18 03:53 Seg Neutrophils # 8.1 K/mm3 (1.8-7.7) H 04/19/18 03:53 PT 15.2 Sec. (12.2-14.9) H 04/18/18 21:02 INR 1.13 (0.87-1.13) 04/18/18 21:02 APTT 29.2 Sec. (24.2-36.6) 04/18/18 21:02 D-Dimer 519.87 ng/mlDDU (0-234) H 04/18/18 16:57 Heparin Anti-Xa Level 0.56 U.I./ml (0.3-0.7) 04/22/18 01:15 POC ABG pH 7.322 (7.35-7.45) L 04/20/18 17:27 POC ABG pCO2 33.3 (35-45) L 04/20/18 17:27 POC ABG pO2 104 (80-105) 04/20/18 17:27 POC ABG HCO3 17.2 04/20/18 17:27 POC ABG Total CO2 18 04/20/18 17:27 POC ABG O2 Sat 98 04/20/18 17:27 POC ABG Base Excess -9 04/20/18 17:27 VBG pH 7.359 (7.320-7.420) 04/18/18 17:35 FiO2 28 % 04/20/18 17:27 Sodium 138 mmol/L (137-145) 04/24/18 04:55 Potassium 4.0 mmol/L (3.6-5.0) 04/24/18 04:55 Chloride 102.1 mmol/L (98-107) 04/24/18 04:55 Carbon Dioxide 26 mmol/L (22-30) 04/24/18 04:55 Anion Gap 14 mmol/L 04/24/18 04:55 BUN 9 mg/dL (7-17) 04/24/18 04:55 Creatinine 0.6 mg/dL (0.7-1.2) L 04/24/18 04:55 Estimated GFR > 60 ml/min 04/24/18 04:55 BUN/Creatinine Ratio 15 % 04/24/18 04:55 Glucose 101 mg/dL (65-100) H 04/24/18 04:55 Lactic Acid 1.10 mmol/L (0.7-2.0) 04/18/18 17:35 Calcium 8.7 mg/dL (8.4-10.2) 04/24/18 04:55 Magnesium 1.90 mg/dL (1.7-2.3) 04/18/18 17:20 Total Bilirubin 0.30 mg/dL (0.1-1.2) 04/20/18 05:08 AST 20 units/L (5-40) 04/20/18 05:08 ALT 18 units/L (7-56) 04/20/18 05:08 Alkaline Phosphatase 77 units/L (35-129) 04/20/18 05:08 Troponin T < 0.010 ng/mL (0.00-0.029) 04/18/18 15:52 C-Reactive Protein 16.50 mg/dL (0.00-1.30) H 04/20/18 18:45 Total Protein 5.7 g/dL (6.3-8.2) L 04/20/18 05:08 Albumin 3.2 g/dL (3.9-5) L 04/20/18 05:08 Albumin/Globulin Ratio 1.3 % 04/20/18 05:08 TSH 0.892 mlU/mL (0.270-4.200) 04/18/18 16:57 Free T4 0.99 ng/dL (0.76-1.46) 04/18/18 16:57 Urine Color Yellow (Yellow) 04/18/18 22:47 Urine Turbidity Clear (Clear) 04/18/18 22:47 Urine pH 5.0 (5.0-7.0) 04/18/18 22:47 Ur Specific [place] 1.054 (1.003-1.030) H 04/18/18 22:47 Urine Protein <15 mg/dl mg/dL (Negative) 04/18/18 22:47 Urine Glucose (UA) Neg mg/dL (Negative) 04/18/18 22:47 Urine Ketones Neg mg/dL (Negative) 04/18/18 22:47 Urine Blood Neg (Negative) 04/18/18 22:47 Urine Nitrite Neg (Negative) 04/18/18 22:47 Urine Bilirubin Neg (Negative) 04/18/18 22:47 Urine Urobilinogen < 2.0 mg/dL (<2.0) 04/18/18 22:47 Ur Leukocyte Esterase Neg (Negative) 04/18/18 22:47 Urine WBC (Auto) < 1.0 /HPF (0.0-6.0) 04/18/18 22:47 Urine RBC (Auto) 6.0 /HPF (0.0-6.0) 04/18/18 22:47 U Epithel Cells (Auto) < 1.0 /HPF (0-13.0) 04/18/18 22:47 Urine Mucus Few /HPF 04/18/18 22:47
[2018-04-24] MEDS: SODIUM CHLORIDE FLUSH SYRINGE 10 ML IV SCH ×3 (10:22→21:57)
--- NOTE | 2018-04-24 10:53 | Progress Note ---
Assessment and Plan Pt remains in SR. Currently stable cardiac status. Cont present cardiac management. Pt continues to have c/o SOB. Further eval/management per primary. The patient has been seen in conjunction with Dr. Wick who agrees with the assessment and plan of care. - Patient Problems (1) Atrial flutter with rapid ventricular response Current Visit: Yes Status: Acute (2) Pulmonary infiltrate Current Visit: Yes Status: Acute (3) Hypotension Current Visit: Yes Status: Acute (4) CAD (coronary artery disease) Current Visit: Yes Status: Chronic (5) Stented coronary artery Current Visit: Yes Status: Chronic (6) Leg wound, left Current Visit: Yes Status: Acute (7) Morbid obesity Current Visit: Yes Status: Chronic (8) Sleep apnea Current Visit: Yes Status: Chronic (9) Anemia Current Visit: Yes Status: Acute Subjective Date of service: 04/24/18 Principal diagnosis: Acute hypoxemic resp failure; AFib with RVR; Obesity; FRANKY/OHS; CAD. Interval history: pt resting in bed, remains in SR. c/o SOB. Objective Last Vital Signs Temp 98.3 F 04/24/18 08:37 Pulse 131 H 04/24/18 10:11 Resp 20 04/24/18 08:37 BP 113/63 04/24/18 10:11 Pulse Ox 99 04/24/18 09:19 - Physical Examination General: No Apparent Distress HEENT: Positive: PERRL, Normocephaly, Mucus Membranes Moist Neck: Positive: neck supple, trachea midline Cardiac: Positive: Reg Rate and Rhythm, S1/S2 Lungs: Positive: Decreased Breath Sounds Neuro: Positive: Grossly Intact Abdomen: Positive: Soft. Negative: Tender Skin: Negative: Rash, Wound Musculoskeletal: No Pain Extremities: Absent: edema - Labs and Meds CBC 04/24/18 Range/Units 04:55 WBC 7.5 (4.5-11.0) K/mm3 RBC 3.35 L (3.65-5.03) M/mm3 Hgb 8.5 L (10.1-14.3) gm/dl Hct 26.5 L (30.3-42.9) % Plt Count 383 (140-440) K/mm3 Comprehensive Metabolic Panel 04/24/18 Range/Units 04:55 Sodium 138 (137-145) mmol/L Potassium 4.0 (3.6-5.0) mmol/L Chloride 102.1 (98-107) mmol/L Carbon Dioxide 26 (22-30) mmol/L BUN 9 (7-17) mg/dL Creatinine 0.6 L (0.7-1.2) mg/dL Glucose 101 H (65-100) mg/dL Calcium 8.7 (8.4-10.2) mg/dL - Imaging and Cardiology EKG: report reviewed, image reviewed Echo: report reviewed (03/2018: EF 50-55%. 08/2017: EF 55-60%) - Allied health notes Allied health notes reviewed: nursing
[2018-04-24] MEDS: ZITHROMAX 500 MG in NACL 0.9% 250ML 250 ML IV SCH (11:27)
[2018-04-24] MEDS: PERCOCET 5/325 PO PRN ×2 (12:57→20:41)
--- NOTE | 2018-04-24 14:21 | XRay Report ---
AP CHEST: HISTORY: Pneumonia Compared to 04/19/18. Hazy opacities throughout most of the left lung appears stable. The right lung is clear. Heart size is at the upper limits of normal. Right venous catheter remains in good position. IMPRESSION: No change.
--- NOTE | 2018-04-24 15:47 | Progress Note ---
Assessment and Plan Acute hypoxemic respiratory failure. Sepsis Atrial fibrillation with rapid ventricular response, new onset. Obesity. Obesity hypoventilation syndrome, plus obstructive sleep apnea. History of coronary artery disease. Anemia that is normocytic. Elevated D-dimer. Mild hyponatremia. Mild metabolic acidosis. Left lower extremity wound. -Continue supplemental oxygen to keep O2 sats 88-90% -Nocturnal BIPAP and prn during the day when asleep - prn ABG and CXR - continue bronchodilators with pulmonary hygiene per RT - continue empiric CAP antibiotics to complete course - continue amiodarone for rate control - continue glycemic control with SSI for target BG 140-180 mg/dl - weight loss counseled - continue full anticoagulation for A-fib - negative VTE w/up - aspiration precautions - PT/OT, increase activity - wound care per WCT for left lower extremity wound - continue other care per attending /other consultants -discharge planning Subjective Date of service: 04/24/18 Principal diagnosis: Acute hypoxemic resp failure; AFib with RVR; Obesity; FRANKY/OHS; CAD. Interval history: Patient is seen today for: Acute hypoxemic respiratory failure; Atrial fibrillation with rapid ventricular response, new onset; Obesity; Obesity hypoventilation syndrome, plus obstructive sleep apnea; History of coronary a rtery disease. Seen and examined at bedside; 24hour events reviewed; nursing and respiratory care staff consulted; no adverse overnight events reported to me; resting peacefully in bed; no chest pain, states she is breathing better. Compliant with NIPPV at night. No nausea or vomiting, no fevers or chills Objective Vital Signs - 12hr 04/24/18 04/24/18 04/24/18 04:16 04:17 08:08 Temperature 97.5 F L Pulse Rate 58 L 61 Pulse Rate [ 94 H Anterior Bilateral Throughout] Respiratory 18 20 Rate Respiratory 22 Rate [Anterior Bilateral Throughout] Blood Pressure 126/50 O2 Sat by Pulse 99 99 Oximetry 04/24/18 04/24/18 04/24/18 08:18 08:37 09:19 Temperature 98.3 F Pulse Rate 64 Pulse Rate [ 96 H Anterior Bilateral Throughout] Respiratory 20 Rate Respiratory 22 Rate [Anterior Bilateral Throughout] Blood Pressure 121/44 O2 Sat by Pulse 100 99 Oximetry 04/24/18 10:11 Temperature Pulse Rate 131 H Pulse Rate [ Anterior Bilateral Throughout] Respiratory Rate Respiratory Rate [Anterior Bilateral Throughout] Blood Pressure 113/63 O2 Sat by Pulse Oximetry Constitutional: appears uncomfortable, other (elderly looking morbidly obese CF, normocephalic and atraumatic with mildly increased resp effort at rest) Eyes: non-icteric ENT: oropharynx moist, other (Mallampati 4) Neck: supple, no lymphadenopathy, no JVD, other (no thyromegaly) Effort: mildly labored Ascultation: Bilateral: diminished breath sounds, rhonchi Percussion: Bilateral: not dull Cardiovascular: irregular rhythm Gastrointestinal: normoactive bowel sounds, soft, non-tender, non-distended, other (No HSM) Integumentary: rash Extremities: no cyanosis, pink and warm, pulses normal, no ischemia or dora chiae, edema (1+) Neurologic: normal mental status, non-focal exam (grossly), pupils equal and round, CN II-XII normal, motor strength normal and Psychiatric: mood appropriate, affect normal CBC and BMP: 04/24/18 04:55 04/24/18 04:55 ABG, PT/INR, D-dimer: ABG POC ABG pH 7.322 (7.35-7.45) L 04/20/18 17:27 POC ABG pCO2 33.3 (35-45) L 04/20/18 17:27 POC ABG pO2 104 (80-105) 04/20/18 17:27 POC ABG HCO3 17.2 04/20/18 17:27 POC ABG Total CO2 18 04/20/18 17:27 POC ABG O2 Sat 98 04/20/18 17:27 PT/INR, D-dimer PT 15.2 Sec. (12.2-14.9) H 04/18/18 21:02 INR 1.13 (0.87-1.13) 04/18/18 21:02 D-Dimer 519.87 ng/mlDDU (0-234) H 04/18/18 16:57 Abnormal lab findings: Abnormal Labs 04/18/18 04/18/18 04/18/18 10:08 10:08 16:57 RBC Hgb Hct MCH 26 L RDW 17.6 H Lymph % (Auto) 4.8 L [place] % (Auto) 8.5 H Lymph # 0.5 L [place] # Seg Neutrophils % 84.9 H Seg Neutrophils # 8.4 H PT D-Dimer 519.87 H Heparin Anti-Xa Level POC ABG pH POC ABG pCO2 Sodium 134 L Carbon Dioxide 20 L BUN 21 H Creatinine Glucose 138 H Calcium C-Reactive Protein Total Protein Albumin 3.8 L Ur Specific [place] 04/18/18 04/18/18 04/18/18 21:02 22:47 23:12 RBC Hgb 9.7 L Hct MCH RDW Lymph % (Auto) [place] % (Auto) Lymph # [place] # Seg Neutrophils % Seg Neutrophils # PT 15.2 H D-Dimer Heparin Anti-Xa Level POC ABG pH POC ABG pCO2 Sodium Carbon Dioxide BUN Creatinine Glucose Calcium C-Reactive Protein Total Protein Albumin Ur Specific [place] 1.054 H 04/19/18 04/19/18 04/19/18 03:53 03:53 03:53 RBC Hgb Hct MCH 26 L RDW 18.1 H Lymph % (Auto) 12.1 L [place] % (Auto) 12.7 H Lymph # [place] # 1.4 H Seg Neutrophils % 74.3 H Seg Neutrophils # 8.1 H PT D-Dimer Heparin Anti-Xa Level 0.74 H POC ABG pH POC ABG pCO2 Sodium 134 L Carbon Dioxide 17 L BUN Creatinine Glucose 162 H Calcium 7.3 L D C-Reactive Protein Total Protein Albumin Ur Specific [place] 04/20/18 04/20/18 04/20/18 05:08 05:08 17:27 RBC 3.36 L Hgb 8.6 L Hct 26.5 L MCH 26 L RDW 17.8 H Lymph % (Auto) [place] % (Auto) Lymph # [place] # Seg Neutrophils % Seg Neutrophils # PT D-Dimer Heparin Anti-Xa Level POC ABG pH 7.322 L POC ABG pCO2 33.3 L Sodium 134 L Carbon Dioxide 20 L BUN Creatinine Glucose 114 H Calcium 7.6 L C-Reactive Protein Total Protein 5.7 L Albumin 3.2 L Ur Specific [place] 04/20/18 04/21/18 04/21/18 18:45 08:15 17:25 RBC Hgb Hct MCH RDW Lymph % (Auto) [place] % (Auto) Lymph # [place] # Seg Neutrophils % Seg Neutrophils # PT D-Dimer Heparin Anti-Xa Level 0.26 L 0.21 L POC ABG pH POC ABG pCO2 Sodium Carbon Dioxide BUN Creatinine Glucose Calcium C-Reactive Protein 16.50 H Total Protein Albumin Ur Specific [place] 04/22/18 04/24/18 04/24/18 05:30 04:55 04:55 RBC 3.35 L Hgb 8.5 L 8.5 L Hct 26.4 L 26.5 L MCH 26 L RDW 17.3 H Lymph % (Auto) [place] % (Auto) Lymph # [place] # Seg Neutrophils % Seg Neutrophils # PT D-Dimer Heparin Anti-Xa Level POC ABG pH POC ABG pCO2 Sodium Carbon Dioxide BUN Creatinine 0.6 L Glucose 101 H Calcium C-Reactive Protein Total Protein Albumin Ur Specific [place] Additional Studies: Echocardiogram: (03/2018: EF 50-55%. 08/2017: EF 55-60%) Allied health notes reviewed: nursing
[2018-04-25] MEDS ORDERED: FOSAMAX PO SCH (06:30)
[2018-04-25] MEDS: PERCOCET 5/325 PO PRN ×2 (08:02→21:01)
[2018-04-25] MEDS: LOPRESSOR PO SCH ×2 (10:25→21:00)
[2018-04-25] MEDS: ELIQUIS PO SCH ×2 (10:26→21:00)
[2018-04-25] MEDS: PEPCID PO SCH ×2 (10:26→21:00)
[2018-04-25] MEDS: celeXA PO SCH (10:27)
[2018-04-25] MEDS: WELLBUTRIN SR PO SCH ×2 (10:28→21:00)
[2018-04-25] MEDS: ROCEPHIN/NS 2 GM/100 ML 2 GM/100 ML BAG IV SCH (10:29)
[2018-04-25] MEDS: SODIUM CHLORIDE FLUSH SYRINGE 10 ML IV SCH ×2 (10:30→21:01)
--- NOTE | 2018-04-25 10:46 | Progress Note ---
Assessment and Plan Pt remains in SR. Currently stable cardiac status. Cont present cardiac management. Nothing further to add from cardiac perspective at this time. Will sign off. Recommend pt follow up in our office with Dr. Wick within 1-2 weeks of hospital discharge ([phone]). The patient has been seen in conjunction with Dr. Wick who agrees with the assessment and plan of care. - Patient Problems (1) Atrial flutter with rapid ventricular response Current Visit: Yes Status: Resolved (2) Pulmonary infiltrate Current Visit: Yes Status: Acute (3) Hypotension Current Visit: Yes Status: Resolved (4) CAD (coronary artery disease) Current Visit: Yes Status: Chronic (5) Stented coronary artery Current Visit: Yes Status: Chronic (6) Leg wound, left Current Visit: Yes Status: Acute (7) Morbid obesity Current Visit: Yes Status: Chronic (8) Obesity hypoventilation syndrome Current Visit: Yes Status: Chronic (9) Sleep apnea Current Visit: Yes Status: Chronic (10) Anemia Current Visit: Yes Status: Acute Subjective Date of service: 04/25/18 Principal diagnosis: Acute hypoxemic resp failure; AFib with RVR; Obesity; FRANKY/OHS; CAD. Interval history: pt resting in bed, remains in SR. Objective Last Vital Signs Temp 98.4 F 04/25/18 07:39 Pulse 63 04/25/18 10:25 Resp 20 04/25/18 08:55 BP 117/61 04/25/18 10:25 Pulse Ox 98 04/25/18 09:46 - Physical Examination General: No Apparent Distress HEENT: Positive: PERRL, Normocephaly, Mucus Membranes Moist Neck: Positive: neck supple, trachea midline Cardiac: Positive: Reg Rate and Rhythm, S1/S2 Lungs: Positive: Decreased Breath Sounds Neuro: Positive: Grossly Intact Abdomen: Positive: Soft. Negative: Tender Skin: Negative: Rash, Wound Musculoskeletal: No Pain Extremities: Absent: edema - Imaging and Cardiology EKG: report reviewed, image reviewed Echo: report reviewed (03/2018: EF 50-55%. 08/2017: EF 55-60%) - Telemetry EKG Rhythm: Sinus Rhythm - Allied health notes Allied health notes reviewed: nursing
[2018-04-25] MEDS: ATIVAN IV PRN (11:35)
[2018-04-25] MEDS: ZITHROMAX 500 MG in NACL 0.9% 250ML 250 ML IV SCH (11:36)
--- NOTE | 2018-04-25 13:56 | Discharge Summary ---
Providers - Providers Date of Admission: 04/18/18 20:14 Date of discharge: 04/25/18 Attending physician: WISAM ARIZMENDI 04/18/18 17:10 Consult to Physician [CONS] Urgent Comment: Dr. Henson spoke with Dr. Powers @ [phone] Consulting Provider: JAIDEN POWERS Physician Instructions: Reason For Exam: aflutter, rvr, hypotension 04/18/18 20:15 Consult to Physician [CONS] Urgent Comment: Consulting Provider: ARGENTINA OVERTON Physician Instructions: Reason For Exam: left leg wound 04/18/18 20:19 Consult to Physician [CONS] Routine Comment: Spoke with Dr. Jonas @ [phone] Consulting Provider: SHIELA JONAS Physician Instructions: Reason For Exam: afib, rvr, hypotension 04/18/18 20:45 Consult to Wound/ET Nurse [CONS] Routine Reason For Exam: wound eval 04/25/18 08:43 Physical Therapy Evaluation and Treat [CONS] Routine Comment: Reason For Exam: weakness, poor ambulation Primary care physician: TOÑO DUMONT Hospitalization Condition: Fair Hospital course: Patient is 63 YO Female with morbid obesity, CAD s/p stent placement, hypertension, sleep apnea on CPAP. She presentsed to ED for evaluation for s hortness of breath, chest palpitations, and chest discomfort for 2 days. Patient was initially seen and evaluated by her PCP and was initially treated with oral antibiotic therapy without relief of symptoms that were suspected secondary to a respiratory tract infection. Patient subsequently presents to ED for evaluation. Pt seen and evaluated in ED and found to have Atrial Flutter with RVR, Acute Respiratory Failure, Sepsis due to pneumonia, as well as Left Leg Cellulitis. She was evaluated in Emergency Department, started on Cardizem, then Amiodarone drip and heparin drip and admitted to ICU. She was on iv Ceftrixone, Azithromycin, Vancomycin. for pneumonia and leg cellulitis. She improved slowly, shortness of breath subsided and she was discharged home on 04/26/18 to follow as outpatient. Total time spent on discharge, 32 mins Disposition: DC-01 TO HOME OR SELFCARE - Discharge Diagnoses (1) Acute and chronic respiratory failure Status: Acute (2) Cellulitis Status: Acute Qualifiers: Site of cellulitis of extremity: lower extremity Laterality: left (3) Leg wound, left Status: Acute (4) CAD (coronary artery disease) Status: Chronic (5) Obesity hypoventilation syndrome Status: Chronic (6) Sleep apnea Status: Chronic (7) Stented coronary artery Status: Chronic (8) Atrial flutter with rapid ventricular response Status: Resolved (9) Hypotension Status: Resolved (10) Sepsis Status: Acute Core Measure Documentation - Palliative Care Palliative Care/ Comfort Measures: Not Applicable - Core Measures Any of the following diagnoses?: none Exam - Constitutional Vitals: Temp Pulse Resp BP Pulse Ox 98.6 F 61 20 126/63 98 04/25/18 11:12 04/25/18 11:12 04/25/18 11:12 04/25/18 11:12 04/25/18 11:12 Plan Activity: advance as tolerated Diet: low fat, low cholesterol, low salt Additional Instructions: 1.Follow up with PCP in 1 week. 2.Follow up with Dr. Crabtree in 1 week. 3.Follow up with Dr. Wick in 1-2 weeks. 4.Continue CPAP at home nightly. 5.Follow up with Dr[facility] Follow up with: TOÑO DUMONT MD [Primary Care Provider] - 3-5 Days Prescriptions: Apixaban [Eliquis] 5 mg PO Q12HR #60 tablet cefUROXime [Ceftin] 500 mg PO Q12H 3 Days tablet Famotidine [Pepcid] 20 mg PO BID #60 tablet Metoprolol [Lopressor TAB] 50 mg PO BID #60 tablet
--- NOTE | 2018-04-26 04:48 | Progress Note ---
Assessment and Plan Assessment and plan: Patient is 63 YO Female with MO,Obesity Hypoventilation on CPAP, CAD S/P Stent Placement, HTN presents to ED for evaluation. Pt states that she has experienced shortness of breath, chest palpitations, and chest discomfort over the past 2 days with worsening symptoms over the same time frame. Pt seen and evaluated by her PCP and was initially treated with oral antibiotic therapy without relief of symptoms that were suspected secondary to a respiratory tract infection. Pt subsequently presents to ED for evaluation. Pt seen and evaluated in ED and found to have Atrial Flutter with RVR, Acute Respiratory Failure, as well as Left Leg Cellulitis. Pt treated with medical cardioversion with cardizem without improvement. Pt then placed on amidarone drip and heparin drip as per cardiology request. Pt declined synchronized cardioversion. * On admission the patient was placed in the intensive care unit started on amiodarone drip and also pressor. * She subsequently converted to sinus rhythm and Lopressor was initiated following blood pressure improvement and pressor being discontinued * Cardiology also converted from heparin drip to eliquis 5mg twice a day * Imaging studies demonstrated multifocal infiltrate as noted and Patient was treated in accordance Acute Respiratory failure due to multifocal pneumonia Sepsis- POA. On review of record patient had low grade fever on admission. CXR also shows mutifocal infiltrate Atrial flutter with RVR Shock STATE. Bronchiectasis Sleep apnea Anemia CAD with hx of PCI Left lower ext wound with resolving cellulites- wound culture showing MRSA Obesity Hypoventilation Syndrome Morbid obesity Depression Plan Review of xray shows Multifocal pneumonia Doubt septic shock. Low BP Likely from aflutter Continue Rocephin and Zithromax Surgical input noted On Metoprolol Off Amiodarone. DVT/GI prophy Plan was to discharge home today but she complained of shortness of breath so discharge cancelled. Re-evaluate tomorrow. History Interval history: Patient complained of shortness of breath so discharge cancelled. No more fever Hospitalist Physical - Physical exam Narrative exam: GEN: Not in acute distress, lying in bed, morbidly obese HEENT: Normocephalic, atraumatic, Neck: supple, No JVD Lungs: Decreased breath sounds no wheeze Heart:S1 and S2 regular, no murmurs, rubs or gallop, Abd:soft, non tender, non distended, normal bowel sounds Ext: No edema, no clubbing or cyanosis Neuro:Awake,alert,oriented x 3, moves all ext, no focal neurological signs - Constitutional Vitals: Temp Pulse Resp BP Pulse Ox 98.0 F 69 15 144/83 100 04/25/18 20:54 04/26/18 00:54 04/26/18 00:54 04/25/18 20:54 04/26/18 00:54 General appearance: Present: obese Results - Labs CBC & Chem 7: 04/24/18 04:55 04/24/18 04:55 Labs: Laboratory Last Values WBC 7.5 K/mm3 (4.5-11.0) 04/24/18 04:55 RBC 3.35 M/mm3 (3.65-5.03) L 04/24/18 04:55 Hgb 8.5 gm/dl (10.1-14.3) L 04/24/18 04:55 Hct 26.5 % (30.3-42.9) L 04/24/18 04:55 MCV 79 fl (79-97) 04/24/18 04:55 MCH 26 pg (28-32) L 04/24/18 04:55 MCHC 32 % (30-34) 04/24/18 04:55 RDW 17.3 % (13.2-15.2) H 04/24/18 04:55 Plt Count 383 K/mm3 (140-440) 04/24/18 04:55 Lymph % (Auto) 12.1 % (13.4-35.0) L 04/19/18 03:53 Webb % (Auto) 12.7 % (0.0-7.3) H 04/19/18 03:53 Eos % (Auto) 0.6 % (0.0-4.3) 04/19/18 03:53 Baso % (Auto) 0.3 % (0.0-1.8) 04/19/18 03:53 Lymph # 1.3 K/mm3 (1.2-5.4) 04/19/18 03:53 Webb # 1.4 K/mm3 (0.0-0.8) H 04/19/18 03:53 Eos # 0.1 K/mm3 (0.0-0.4) 04/19/18 03:53 Baso # 0.0 K/mm3 (0.0-0.1) 04/19/18 03:53 Seg Neutrophils % 74.3 % (40.0-70.0) H 04/19/18 03:53 Seg Neutrophils # 8.1 K/mm3 (1.8-7.7) H 04/19/18 03:53 PT 15.2 Sec. (12.2-14.9) H 04/18/18 21:02 INR 1.13 (0.87-1.13) 04/18/18 21:02 APTT 29.2 Sec. (24.2-36.6) 04/18/18 21:02 D-Dimer 519.87 ng/mlDDU (0-234) H 04/18/18 16:57 Heparin Anti-Xa Level 0.56 U.I./ml (0.3-0.7) 04/22/18 01:15 POC ABG pH 7.322 (7.35-7.45) L 04/20/18 17:27 POC ABG pCO2 33.3 (35-45) L 04/20/18 17:27 POC ABG pO2 104 (80-105) 04/20/18 17:27 POC ABG HCO3 17.2 04/20/18 17:27 POC ABG Total CO2 18 04/20/18 17:27 POC ABG O2 Sat 98 04/20/18 17:27 POC ABG Base Excess -9 04/20/18 17:27 VBG pH 7.359 (7.320-7.420) 04/18/18 17:35 FiO2 28 % 04/20/18 17:27 Sodium 138 mmol/L (137-145) 04/24/18 04:55 Potassium 4.0 mmol/L (3.6-5.0) 04/24/18 04:55 Chloride 102.1 mmol/L (98-107) 04/24/18 04:55 Carbon Dioxide 26 mmol/L (22-30) 04/24/18 04:55 Anion Gap 14 mmol/L 04/24/18 04:55 BUN 9 mg/dL (7-17) 04/24/18 04:55 Creatinine 0.6 mg/dL (0.7-1.2) L 04/24/18 04:55 Estimated GFR > 60 ml/min 04/24/18 04:55 BUN/Creatinine Ratio 15 % 04/24/18 04:55 Glucose 101 mg/dL (65-100) H 04/24/18 04:55 Lactic Acid 1.10 mmol/L (0.7-2.0) 04/18/18 17:35 Calcium 8.7 mg/dL (8.4-10.2) 04/24/18 04:55 Magnesium 1.90 mg/dL (1.7-2.3) 04/18/18 17:20 Total Bilirubin 0.30 mg/dL (0.1-1.2) 04/20/18 05:08 AST 20 units/L (5-40) 04/20/18 05:08 ALT 18 units/L (7-56) 04/20/18 05:08 Alkaline Phosphatase 77 units/L (35-129) 04/20/18 05:08 Troponin T < 0.010 ng/mL (0.00-0.029) 04/18/18 15:52 C-Reactive Protein 16.50 mg/dL (0.00-1.30) H 04/20/18 18:45 Total Protein 5.7 g/dL (6.3-8.2) L 04/20/18 05:08 Albumin 3.2 g/dL (3.9-5) L 04/20/18 05:08 Albumin/Globulin Ratio 1.3 % 04/20/18 05:08 TSH 0.892 mlU/mL (0.270-4.200) 04/18/18 16:57 Free T4 0.99 ng/dL (0.76-1.46) 04/18/18 16:57 Urine Color Yellow (Yellow) 04/18/18 22:47 Urine Turbidity Clear (Clear) 04/18/18 22:47 Urine pH 5.0 (5.0-7.0) 04/18/18 22:47 Ur Specific Brady 1.054 (1.003-1.030) H 04/18/18 22:47 Urine Protein <15 mg/dl mg/dL (Negative) 04/18/18 22:47 Urine Glucose (UA) Neg mg/dL (Negative) 04/18/18 22:47 Urine Ketones Neg mg/dL (Negative) 04/18/18 22:47 Urine Blood Neg (Negative) 04/18/18 22:47 Urine Nitrite Neg (Negative) 04/18/18 22:47 Urine Bilirubin Neg (Negative) 04/18/18 22:47 Urine Urobilinogen < 2.0 mg/dL (<2.0) 04/18/18 22:47 Ur Leukocyte Esterase Neg (Negative) 04/18/18 22:47 Urine WBC (Auto) < 1.0 /HPF (0.0-6.0) 04/18/18 22:47 Urine RBC (Auto) 6.0 /HPF (0.0-6.0) 04/18/18 22:47 U Epithel Cells (Auto) < 1.0 /HPF (0-13.0) 04/18/18 22:47 Urine Mucus Few /HPF 04/18/18 22:47 Nutrition/Malnutrition Assess - Dietary Evaluation Nutrition/Malnutrition Findings: Nutrition Notes Start: 04/25/18 10:04 Freq: Status: Active Protocol: Document 04/25/18 10:05 CHANDANA (Rec: 04/25/18 10:39 [email or web address]) Co-Sign 04/25/18 10:05 LP Nutrition Notes Need for Assessment generated from: LOS Initial or Follow up Assessment Current Diagnosis Coronary Artery Disease Hypertension Other Pertinent Diagnosis Obesity hypoventilation, cellulitis, DVT, wound on lower L leg Current Diet Cardiac Diet Labs/Tests Reviewed Pertinent Medications Ativan Height 5 ft 1 in Weight 143.3 kg [place] Body Weight (kg) 47.72 BMI 59.7 Intake Prior to Admission Fair Weight Status Morbidly Obese Subjective/Other Information Pt screened for LOS. Pt. stated she has recently had a poor appetite. Stated she was eating about 20% of her meals in the hospital due to food being bland. Pt. agreed to try to eat a few bites of meals every few minutes. Pt denied N /V/D, constipation, chewing/ swallowing diffculties, and recent weight loss. Food preferences noted. Percent of energy/protein needs met: 25%/14% Burn Absent Trauma Absent Food Allergy No Current % PO Poor (25-49%) #1 Nutrition Diagnosis Increased nutrient needs ( specify in comment below) Comments: Protein Etiology Wound healing As Evidenced by Signs and Symptoms Wound on left lower leg Is patient on ventilator? No Is Patient Ambulatory and/or Out of Bed No REE-([place] [facility]-confined to bed) 2314.776 Kcal/Kg value to use for calculation 12 Approximate Energy Requirements Using 1720 kcal/Kg Calculation Used for Recommendations Kcal/kg Additional Notes AdjBW: 95.5 kg Pro needs: 119-143 g/day (1.25 -1.5 AdjBW) Fluid needs: 1 ml/kcal or per MD Nutrition Intervention Change Diet Order: Continue cardiac diet Add Supplement/Snack (indicate name/kcal Bill BID + Ensure High /protein ) protein daily Provides kCal: 350 Provides Protein (gm) 21 Goal #1 Meet at least 75% of energy and protein needs via PO and ONS intakes Goal #2 Wound healing Anticipated Discharge Needs: Cardiac diet Follow-Up By: 04/30/18 Additional Comments F/u for stable intakes, ONS toleration
[2018-04-26 08:26] VITALS: BP 122/64
[2018-04-26] MEDS: ROCEPHIN/NS 2 GM/100 ML 2 GM/100 ML BAG IV SCH (09:51)
[2018-04-26] MEDS: SODIUM CHLORIDE FLUSH SYRINGE 10 ML IV SCH (09:51)
[2018-04-26] MEDS: celeXA PO SCH (10:07)
[2018-04-26] MEDS: ELIQUIS PO SCH (10:07)
[2018-04-26] MEDS: PEPCID PO SCH (10:07)
[2018-04-26] MEDS: LOPRESSOR PO SCH (10:08)
[2018-04-26] MEDS: WELLBUTRIN SR PO SCH (10:08)
--- NOTE | 2018-04-26 12:07 | Event Note ---
Date: 04/26/18 patient had discharge orders put in yesterday, but complained of shortness of breath, so canceled. No more shortness of breath. Stable to go home today.
== END 2018-04-26 17:00 | disposition home or self-care (01) | DRG 871 ==
LOC: ED 09:12 → CC1 20:14 → 4A 04-23 00:40
PROVIDERS: ADMIT Internal Medicine; ATTEND Internal Medicine
PROC: 02HV33Z Insertion of Infusion Device into Superior Vena Cava, Percutaneous Approach (ICD-10-PCS; 2018-04-18)
PROC: 5A2204Z Restoration of Cardiac Rhythm, Single (ICD-10-PCS; 2018-04-18)
PROC: 5A09457 Assistance with Respiratory Ventilation, 24-96 Consecutive Hours, Continuous Positive Airway Pressure (ICD-10-PCS; 2018-04-19)
PROC: 4A033R1 Measurement of Arterial Saturation, Peripheral, Percutaneous Approach (ICD-10-PCS; principal; 2018-04-20)
PROC: 5A09457 Assistance with Respiratory Ventilation, 24-96 Consecutive Hours, Continuous Positive Airway Pressure (ICD-10-PCS; 2018-04-23)
DX: A41.9 Sepsis, unspecified organism (principal); J96.01 Acute respiratory failure with hypoxia; R65.21 Severe sepsis with septic shock; I48.92 Unspecified atrial flutter; Z68.43 Body mass index [BMI] 50.0-59.9, adult; L03.116 Cellulitis of left lower limb; E66.2 Morbid (severe) obesity with alveolar hypoventilation; E87.1 Hypo-osmolality and hyponatremia; E87.2 Acidosis; R07.81 Pleurodynia; S81.802A Unspecified open wound, left lower leg, initial encounter; I25.10 Atherosclerotic heart disease of native coronary artery without angina pectoris; I10 Essential (primary) hypertension; D64.9 Anemia, unspecified; J47.9 Bronchiectasis, uncomplicated; F32.9 Major depressive disorder, single episode, unspecified; Z95.5 Presence of coronary angioplasty implant and graft; Z90.49 Acquired absence of other specified parts of digestive tract; Z79.899 Other long term (current) drug therapy; Z82.49 Family history of ischemic heart disease and other diseases of the circulatory system
CPT/HCPCS: 36415; 36600; 71045; 71046; 71275; 80048; 80053; 81001; 82140; 82803; 82805; 83735; 84439; 84443; 84484; 85014; 85018; 85025; 85027; 85049; 85379; 85520; 85610; 85730; 86140; 87040; 87086; 87400; 93005; 93010; 93306; 93970; 94640; 94660; 94760; 96361; 96365; 96375; G0378; A9270-GY; J0282; J0456; J0696; J1160; J1644; J2060; J2543; J3370; J3420; J7030; J7040; J7050; J7060; Q9967

== ENCOUNTER 2018-04-29 09:03 | Outpatient (CLI) | payer OTHER ==
--- NOTE | 2018-04-20 10:26 | Progress Note ---
Assessment and Plan 63yo WF: 1. afib/flutter with vvr 2. CAP/sepsis 3. septic shock 4. Obesity/OHS/FRANKY 5. LLE wound mrsa 6. anemia 7. protein malnutrition critically ill echo reviewed I suspect hypotension is due to sepsis (ef nl) cont iv amio/heparin ivf iv abx wean love, and start ccb when bp will tolerate d/w pt and Discussed with Dr. Crump - Patient Problems (1) Atrial flutter with rapid ventricular response Status: Acute (2) Hypotension Status: Acute (3) Leg wound, left Status: Acute (4) Obesity hypoventilation syndrome Status: Acute (5) Pleuritic chest pain Status: Acute (6) Pulmonary infiltrate Status: Acute (7) CAD (coronary artery disease) Status: Chronic (8) Morbid obesity Status: Chronic (9) Sleep apnea Status: Chronic (10) Stented coronary artery Status: Chronic (11) Open wound of left lower leg with complication Status: Acute Subjective Date of service: 04/20/18 Interval history: feels better at bedside
[2018-04-29] MEDS ORDERED: XYLOCAINE TOPICAL 4% TP ONE (09:49)
[2018-04-29] MEDS ORDERED: SILVER NITRATE TP ONE (09:49)
== END 2018-04-29 09:04 | disposition home or self-care (01) ==
LOC: WOUND 09:03
PROVIDERS: ATTEND Surgery
DX: L97.822 Non-pressure chronic ulcer of other part of left lower leg with fat layer exposed (principal); S80.12XD Contusion of left lower leg, subsequent encounter; E78.00 Pure hypercholesterolemia, unspecified; I25.10 Atherosclerotic heart disease of native coronary artery without angina pectoris; Z87.891 Personal history of nicotine dependence; X58.XXXD Exposure to other specified factors, subsequent encounter

== ENCOUNTER 2018-05-06 09:01 | Outpatient (CLI) | payer OTHER ==
[2018-05-06] MEDS ORDERED: XYLOCAINE TOPICAL 4% TP ONE (10:00)
[2018-05-06] MEDS ORDERED: AD OINTMENT TP PRN (10:00)
[2018-05-06] MEDS ORDERED: SILVER NITRATE TP ONE (10:00)
== END 2018-05-06 09:02 | disposition home or self-care (01) ==
LOC: WOUND 09:01
PROVIDERS: ATTEND Surgery
DX: L97.818 Non-pressure chronic ulcer of other part of right lower leg with other specified severity (principal); I25.10 Atherosclerotic heart disease of native coronary artery without angina pectoris; E78.00 Pure hypercholesterolemia, unspecified; Z87.891 Personal history of nicotine dependence
CPT/HCPCS: 99212; A6250; G0463

== ENCOUNTER 2018-06-10 08:56 | Outpatient (CLI) | payer OTHER | END 2018-06-10 08:57 | disposition home or self-care (01) | LOC: WOUND 08:56 | PROVIDERS: ATTEND Surgery | DX: I87.302 Chronic venous hypertension (idiopathic) without complications of left lower extremity (principal); I70.248 Atherosclerosis of native arteries of left leg with ulceration of other part of lower leg; L97.828 Non-pressure chronic ulcer of other part of left lower leg with other specified severity; E78.00 Pure hypercholesterolemia, unspecified; I25.10 Atherosclerotic heart disease of native coronary artery without angina pectoris; E66.9 Obesity, unspecified; Z68.42 Body mass index [BMI] 45.0-49.9, adult; Z87.891 Personal history of nicotine dependence; Z95.5 Presence of coronary angioplasty implant and graft | CPT/HCPCS: 99215; G0463 ==

== ENCOUNTER 2020-05-31 10:03 | Outpatient (CLI) | payer OTHER ==
--- NOTE | 2020-05-31 14:12 | Mammography Report ---
DIGITAL SCREENING MAMMOGRAM WITH CAD, 05/31/2020 CLINICAL INFORMATION / INDICATION: Routine screening mammography. TECHNIQUE: Digital bilateral 2D mammography was obtained in the craniocaudal and mediolateral obliqu e projections. This examination was interpreted with the benefit of Computer-Aided Detection analysis . COMPARISON: 08/24/2016, 08/24/2015 FINDINGS: Breast Density: The breasts are almost entirely fatty. No dominant mass, suspicious calcifications, or architectural distortion in either breast. IMPRESSION: No mammographic evidence of malignancy. Follow up recommendation: Routine yearly BI-RADS Category 1: Negative. A "normal" or negative report should not discourage follow up or biopsy of a clinically significant f inding. A written summary of these findings will be mailed to the patient. The patient will be entered into a mammography reporting system which will generate a reminder letter for the patient's next appointmen t at the appropriate interval. The [employer] [place] [employer] recommends yearly mammograms starting at age 40 and continuing as l hany as a woman is in good health. Breast MRI is recommended for women with an approximate 20-25% or greater lifetime risk of breast cancer, including women with a strong family history of breast or ova uriah cancer or who have been treated for Hodgkin's disease. Signer Name: Shiva Novak MD Signed: 05/31/2020 2:08 PM Workstation Name: [id number]
== END 2020-05-31 10:04 | disposition home or self-care (01) ==
LOC: SPVWC 10:03
PROVIDERS: ATTEND Internal Medicine
DX: Z12.31 Encounter for screening mammogram for malignant neoplasm of breast (principal)
CPT/HCPCS: 77067